=== PATIENT | female | born 1975 | race Two or more races ===

== ENCOUNTER 2020-08-01 15:07 | Outpatient (REF) | payer OTHER, SELFPAY ==
--- NOTE | 2020-08-01 | US_ITS ---
EXAMINATION:US transvaginal, US pelvic complete CLINICAL INFORMATION: Reason for Exam MENORRHAGIA COMPARISON: There is a report from 2016 however no images available. LMP: 07/21/2020 FINDINGS: UTERUS: The uterus is anteverted. Size: 8.8 x 3.3 x 4.8 cm. Uterine mass: Intramural uterine mass right wall 3 x 3 x 2.8 cm probably fibroid. Mass on the left uterine wall 1.9 x 1.2 x 1.4 cm. Cervix: Grossly unremarkable. Endometrium: No ultrasound evidence of endometrial lesion. endometrial thickness measures 0.9 cm echogenic structures in the endometrium might be polyps 4 x 4 by 9 mm and 4 x 3 x 3 mm. ADNEXA: Normal Right ovary: Normal in size. Left ovary: Normal in size. Cystic structure in the left ovary probably follicle 1.5 x 1.4 x 1.3 cm. Doppler exam: Normal Doppler flow identified in both ovaries. FREE FLUID: Trace amount of free fluid. OTHER FINDINGS: None IMPRESSION: 1. There are 2 small echogenic lesions found in the endometrium measuring up to 9 mm and 3 mm, probably polyps. Attention to follow-up recommended. Consider follow-up ultrasound in 6 months. 2. No fibroids identified on today's exam. 3. Cystic structure 1.5 cm left ovary likely ovarian follicle.
== END 2020-08-01 15:08 | disposition home or self-care (01) ==
LOC: HO.US 15:07
DX: R87.619 Unspecified abnormal cytological findings in specimens from cervix uteri (principal); N92.0 Excessive and frequent menstruation with regular cycle
CPT/HCPCS: 76830; 76856

== ENCOUNTER 2020-08-24 09:11 | Outpatient (REF) | payer OTHER, SELFPAY ==
[2020-08-24 10:22] LABS: Hemoglobin 12.6 g/dl (12.0-16.0); Mean Corpuscular HGB Conc 32.3 g/dl (31.0-35.0); Mean Corpuscular Hemoglobin 31.1 pg (27.0-33.0); Mean Corpuscular Volume 96.3 fL (80-98); Platelet Count 277 X10*3/uL (160-400); Red Blood Count 4.05 X10*6/uL (4.20-5.50); White Blood Count 4.5 X10*3/uL (4.8-10.8)
[2020-08-24 11:04] LABS: HCG Quantitative < 2 mIU/mL; Thyroid Stimulating Hormone 1.03 mIU/mL (0.32-4.0)
== END 2020-08-24 09:12 | disposition home or self-care (01) ==
LOC: HO.LAB 09:11
PROVIDERS: PCP Internal Medicine; Visit Provider Obstetrics & Gynecology
DX: N92.0 Excessive and frequent menstruation with regular cycle (principal)
CPT/HCPCS: 36415; 84443; 84702; 85027

== ENCOUNTER → 2020-08-29 08:09 | Outpatient (BNVA) | payer OTHER, SELFPAY | PROVIDERS: PCP Internal Medicine; Visit Provider Obstetrics & Gynecology | DX: Z01.818 Encounter for other preprocedural examination (principal); N84.0 Polyp of corpus uteri; N92.0 Excessive and frequent menstruation with regular cycle | CPT/HCPCS: 99212 ==

== ENCOUNTER 2020-09-07 08:54 | Day surgery (SDC) | payer OTHER, SELFPAY ==
--- NOTE | 2020-09-05 14:49 | P.CONAN_ITS ---
Documented by User: Hamida Cerna 09/05/20 14:50 HPI - Anesthesia Eval Consult details Narrative: 45yo F for D&C Diagnostic Hysteroscopy [facility], [facility] Past Medical History Medical History Back pain Hypovitaminosis D Neck pain Pure hypercholesterolemia Sinusitis Surgical History Surgical History History of bunionectomy Social History Social History Alcohol intake: never Smoking Status: Never smoker Use of substances other than those prescribed or required for medical reasons: No Advance Directives: No Advance Directives Information Provided: No Advance Directives on File: No Sexual orientation: Straight/Heterosexual Gender identity: female Meds Allergies Allergy/AdvReac Type Severity Reaction Status Date / Time No Known Allergies Allergy Verified 09/07/20 09:27 Home Medications Medication Instructions Recorded Confirmed Type fluticasone propionate 50 50 mcg INTRANASAL DIRECTED 08/21/20 08/31/20 History mcg/actuation nasal spray,suspension multivitamin 1 tab PO DAILY 08/21/20 08/31/20 History Fish Oil 1 tab PO DAILY 08/31/20 08/31/20 History ascorbic acid (vitamin C) [Vitamin 500 mg PO DAILY 08/31/20 08/31/20 History C] cholecalciferol (vitamin D3) 25 mcg PO DAILY 08/31/20 08/31/20 History [Vitamin D3] vitamin [id number] acid 1 tab PO DAILY 08/31/20 08/31/20 History Exam Exam Date and Time: September 05, 2020 1449 Height,Weight and Vital Signs: Height 5 ft 4 in Weight 15 kg Pertinent Lab Results Pertinent Lab Results: Laboratory Tests 08/24/20 09:30 WBC 4.5 L Hgb 12.6 Hct 39.0 Plt Count 277 Assessment and Plan Assessment Anesthesia Assessment: Chart Reviewed Documented by User: Madyson Rodas 09/07/20 09:59 PMFSH Past Medical History Medical History Back pain Hypovitaminosis D Neck pain Pure hypercholesterolemia Sinusitis Surgical History Surgical History History of bunionectomy Social History Social History Alcohol intake: never Smoking Status: Never smoker Use of substances other than those prescribed or required for medical reasons: No Advance Directives: No Advance Directives Information Provided: No Advance Directives on File: No Sexual orientation: Straight/Heterosexual Gender identity: female Meds Allergies Allergy/AdvReac Type Severity Reaction Status Date / Time No Known Allergies Allergy Verified 09/07/20 09:27 Home Medications Medication Instructions Recorded Confirmed Type fluticasone propionate 50 50 mcg INTRANASAL DIRECTED 08/21/20 08/31/20 History mcg/actuation nasal spray,suspension multivitamin 1 tab PO DAILY 08/21/20 08/31/20 History Fish Oil 1 tab PO DAILY 08/31/20 08/31/20 History ascorbic acid (vitamin C) [Vitamin 500 mg PO DAILY 08/31/20 08/31/20 History C] cholecalciferol (vitamin D3) 25 mcg PO DAILY 08/31/20 08/31/20 History [Vitamin D3] vitamin W85-ejncq acid 1 tab PO DAILY 08/31/20 08/31/20 History Exam Airway Mallampati Class: I TM Dist: >3cm Neck ROM: Full Heart: RRR Lungs: CTA Assessment and Plan Assessment Anesthesia Assessment: Anesthesia Plan Discussed and Chart Reviewed Final Anesthetic Review NPO: Yes ASA Class: I Final Preanesthetic Review: Meds/Allgs Chart Reviewed, Consent Obtained/Reviewed and Anes Risks/Benef Reviewed Patient Risk: Low Procedure Risk: Low Anesthetic Plan Anesthetic Plan: GA Disposition: Standard PACU
[2020-09-07 09:15] VITALS: BP 112/48; PULSE 53; RESP 20; TEMP 36.3; O2SAT 100; BMI 21.2
[2020-09-07 09:22] LABS: UPreg QC Valid YES; Urine Pregnancy NEGATIVE (NEGATIVE)
[2020-09-07] MEDS: Lactated Ringers 1,000 ML 100 ML IVCONT (09:26)
--- NOTE | 2020-09-07 09:31 | MHC.SHP ---
Pre-Procedural Eval Section A The patient is an INPATIENT: No Changes since office visit: No Cold of Flu in the past 2 weeks, No New Medical Problems, No Changes in Medication and No Patient answered all questions The History & Physical has been completed within 30 days and I have reviewed it.: Yes Section B Chief Complaint: Menorrhagia Allergies: Allergies Allergy/AdvReac Type Severity Reaction Status Date / Time No Known Allergies Allergy Verified 09/07/20 09:27 Plan Diagnosis/Plan: Unchanged Patient has been examined and remains a candidate for the planned procedure
--- NOTE | 2020-09-07 10:46 | PM.OP ---
Brief Operative Note Date of Service: 09/07/20 Pre-op diagnosis: Menometrorrhagia, 2 endometrial polyps Post-op diagnosis: same Procedure: Hysteroscopy D&C, Polypectomy Surgeon: Giovanni Meza MD Anesthesia: MAC Estimated blood loss (mL): 0 Pathology: other (Endometrial Scrapping. Polyp) Condition: stable Disposition: PACU
--- NOTE | 2020-09-07 10:47 | W.PM.OPN ---
Operative Note Operative Note Date of Service: 09/07/20 Narrative: Preop Diagnosis: Menometorrhagia , 2 endometrial polyps Operation: Diagnostic Hysteroscopy, Dilataion & Curettage and polypectomy Post Op Diagnosis: same, 2 endometrial polyps QBL: Minimal Anesthesia: MAC Surgeon: Giovanni Meza MD Custodial Supervisor: None Complication: None Pathology: Endometrial Scrapings, 2 Endometrial Polyps Procedure: The patient was put in the dorsal lithotomy position, scrubbed, and draped in the usual manner. A sterile speculum was inserted in the patient's vagina. The anterior lip of the cervix was grasped with a single tooth tenaculum. The cervix was dilated up to 5 mm, then the scope was inserted in the patient's uterus. Inspection revealed 2 endometrial polyps in the posterior uterine wall. The Myosure Reach device was used; it was introduced through the operative channel and 2 polypectomies were done with no complications. At the end of the procedure, all instruments were taken out of the patient uterine and vaginal cavity. The single tooth tenaculum was removed and homeostasis was assured using pressure,. The patient tolerated the procedure well and was transferred to the PACU in a stable condition.
[2020-09-07 10:52] VITALS: BP 103/57; PULSE 66; RESP 14; TEMP 36.1; O2SAT 96
[2020-09-07 10:57] VITALS: BP 94/55; PULSE 52; RESP 16; O2SAT 96
[2020-09-07 11:03] VITALS: BP 97/55; PULSE 50; RESP 16; O2SAT 93
[2020-09-07 11:16] VITALS: BP 106/62; PULSE 50; RESP 16; O2SAT 99
== END 2020-09-07 11:48 | disposition home or self-care (01) ==
PROVIDERS: Nurse Practitioner; PCP Internal Medicine; Visit Provider Obstetrics & Gynecology
PROC: 0UDB8ZX Extraction of Endometrium, Via Natural or Artificial Opening Endoscopic, Diagnostic (ICD-10-PCS; CPT 58558; principal; 2020-09-07 10:20)
DX: N92.0 Excessive and frequent menstruation with regular cycle (principal); N84.0 Polyp of corpus uteri; E55.9 Vitamin D deficiency, unspecified; E78.00 Pure hypercholesterolemia, unspecified; Z79.899 Other long term (current) drug therapy
CPT/HCPCS: 58558; 81025; 88305; J1100; J1885; J2250; J2405; J3010

== ENCOUNTER → 2020-09-25 14:14 | Outpatient (BNVA) | payer OTHER, SELFPAY | PROVIDERS: Visit Provider Obstetrics & Gynecology | DX: Z76.89 Persons encountering health services in other specified circumstances (principal) ==

== ENCOUNTER 2020-10-17 15:26 | Outpatient (REF) | payer OTHER, SELFPAY | END 2020-10-17 15:27 | disposition home or self-care (01) | LOC: HO.LAB 15:26 | PROVIDERS: PCP Internal Medicine; Visit Provider Internal Medicine | DX: Z20.828 Contact with and (suspected) exposure to other viral communicable diseases (principal) | CPT/HCPCS: C9803; U0003 ==

== ENCOUNTER 2021-01-09 08:34 | Outpatient (REF) | payer OTHER, SELFPAY ==
[2021-01-09 09:06] LABS: MANUAL DIFF FLAG NO
[2021-01-09 09:09] LABS: Basophils Percent Auto 0.7 % (0-2); Eosinophils Absolute Auto 0.1 X10*3/uL (0.0-0.4); Eosinophils Percent Auto 1.4 % (0-4); Hematocrit 38.6 % (37-47); Hemoglobin 12.5 g/dl (12.0-16.0); Imm Gran Abs Auto 0.01 X10*3/uL (0.00-0.03); Imm Gran Pct Auto 0.2 % (0.0-0.4); Lymphocytes Absolute Auto 1.5 X10*3/uL (1.2-4.9); Lymphocytes Percent Auto 35.6 % (20-40); Mean Corpuscular HGB Conc 32.4 g/dl (31.0-35.0); Mean Corpuscular Hemoglobin 31.1 pg (27.0-33.0); Monocytes Absolute Auto 0.4 X10*3/uL (0.1-1.2); Monocytes Percent Auto 8.4 % (2-11); Neutrophils Absolute Auto 2.2 X10*3/uL (2.0-8.3); Neutrophils Percent Auto 53.7 % (45-73); Platelet Count 250 X10*3/uL (160-400); Red Blood Count 4.02 X10*6/uL (4.20-5.50); Red Cell Distribution Width 12.5 % (11.0-16.0); White Blood Count 4.2 X10*3/uL (4.8-10.8)
[2021-01-09 09:32] LABS: Blood Urea Nitrogen 14 mg/dL (9-16); Calcium 9.2 mg/dL (8.4-10.2); Estimated Glomerular Filt Rate > 60; Glucose Random 108 mg/dL (60-115)
[2021-01-09 09:42] LABS: Anion Gap 11 (12-20); Carbon Dioxide 29 mmol/L (22-29); Chloride 103 mmol/L (96-108); Potassium 4.8 mmol/L (3.3-5.1); Sodium 138 mmol/L (135-145)
== END 2021-01-09 08:35 | disposition home or self-care (01) ==
LOC: HO.LAB 08:34
PROVIDERS: PCP Internal Medicine; Visit Provider Internal Medicine
DX: Z00.00 Encounter for general adult medical examination without abnormal findings (principal); R51.9 Headache, unspecified
CPT/HCPCS: 36415; 80048; 85025

== ENCOUNTER 2021-01-16 08:26 | Outpatient (REF) | payer OTHER, SELFPAY ==
--- NOTE | ~2021-01-16 | US_ITS ---
EXAMINATION: US ABDOMEN COMPLETE CLINICAL INFORMATION: Unspecified abdominal pain. COMPARISON: Renal ultrasound 04/20/2019. KUB 02/18/2019. TECHNIQUE: Real-time imaging of the abdominal viscera. FINDINGS: PANCREAS: Normal. ABDOMINAL AORTA: The proximal, mid, and distal segments are normal in caliber. INFERIOR VENA CAVA: Visualized portions are normal. LIVER: Normal. The liver is normal in size. The liver contour is normal. Parenchymal echogenicity is normal. No focal hepatic lesion. There is no intrahepatic biliary duct dilatation seen. GALLBLADDER: Gallbladder wall thickness of 0.2 cm. The gallbladder is physiologically distended without evidence of stones, sludge, polyps, wall thickening or pericholecystic fluid. COMMON BILE DUCT: Normal in caliber measuring 0.3 cm in diameter. RIGHT KIDNEY: Normal. No hydronephrosis. No renal calculi or focal parenchymal lesions. The kidney measures 11.3 cm in maximum dimension. LEFT KIDNEY: Normal. No hydronephrosis. No renal calculi or focal parenchymal lesions. The kidney measures 11.3 cm in maximum dimension. SPLEEN: Normal. The spleen measures 8.6 cm in maximum dimension. FREE FLUID: None. US/US abdomen complete IMPRESSION: Unremarkable complete abdomen ultrasound
== END 2021-01-16 08:27 | disposition home or self-care (01) ==
LOC: HO.US 08:26
PROVIDERS: Visit Provider Internal Medicine
DX: R10.9 Unspecified abdominal pain (principal)
CPT/HCPCS: 76700

== ENCOUNTER 2021-03-29 08:38 | Outpatient (REF) | payer OTHER, SELFPAY ==
--- NOTE | ~2021-03-29 | MM_ITS ---
EXAMINATION: MM SCREENING DIGITAL BREAST TOMOSYNTHESIS, BILATERAL CLINICAL INFORMATION: Screening. Asymptomatic. The lifetime risk of breast cancer based on the Tyrer-Cuzick Model is 8%. COMPARISON: Mammography: 01/03/2020, 11/23/2018, 11/10/2017, 08/03/2017; targeted right breast ultrasound 11/08/2019 TECHNIQUE: Digital breast tomosynthesis is performed in both the craniocaudal and mediolateral oblique views along with computer-aided detection (CAD). Synthesized 2D images are generated from the tomosynthesis. FINDINGS: There are scattered areas of fibroglandular density (ACR BI-RADS breast composition Category b). Breast tissue composition borders on extremely dense. There is a stable oval mass posterior upper right breast similar to prior exams. There is no significant mass or architectural abnormality or abnormal calcifications. The skin contours are smooth. No significant changes. MM/MM tomosynthesis screening BI IMPRESSION: No significant changes from prior studies. ASSESSMENT: BI-RADS 2: Benign RECOMMENDATION: Routine annual mammography screening. This patient's information was entered into a reminder system with a target due date for their next mammogram.
== END 2021-03-29 08:39 | disposition home or self-care (01) ==
LOC: HO.MAMMO 08:38
PROVIDERS: PCP Internal Medicine; Visit Provider Internal Medicine
DX: Z12.31 Encounter for screening mammogram for malignant neoplasm of breast (principal)
CPT/HCPCS: 77063; 77067

== ENCOUNTER 2021-09-09 16:29 | Outpatient (REF) | payer OTHER, SELFPAY ==
--- NOTE | ~2021-09-09 | XR_ITS ---
EXAMINATION: X-RAY RIGHT KNEE X-RAY LEFT KNEE CLINICAL INFORMATION: Pain. Trauma about 10 years ago. COMPARISON: MR of the left knee dated from 11/03/2006. TECHNIQUE: 4 views of each knee were obtained. FINDINGS: Right knee: No acute fractures or malalignment. Mild joint space narrowing of the medial compartment with subcortical sclerosis. No chondrocalcinosis or joint effusion. No unexpected radiopaque foreign bodies. Left knee: No acute fractures or malalignment. Similar to the right side, there are mild degenerative changes in the medial compartment. No erosions or chondrocalcinosis. No joint effusion. No unexpected radiopaque foreign bodies. XR/XR knee RT 4V IMPRESSION: No acute fractures or malalignment. Mild degenerative osteoarthritis of the medial compartment.
--- NOTE | ~2021-09-09 | XR_ITS ---
EXAMINATION: X-RAY RIGHT KNEE X-RAY LEFT KNEE CLINICAL INFORMATION: Pain. Trauma about 10 years ago. COMPARISON: MR of the left knee dated from 11/03/2006. TECHNIQUE: 4 views of each knee were obtained. FINDINGS: Right knee: No acute fractures or malalignment. Mild joint space narrowing of the medial compartment with subcortical sclerosis. No chondrocalcinosis or joint effusion. No unexpected radiopaque foreign bodies. Left knee: No acute fractures or malalignment. Similar to the right side, there are mild degenerative changes in the medial compartment. No erosions or chondrocalcinosis. No joint effusion. No unexpected radiopaque foreign bodies. XR/XR knee LT 4V IMPRESSION: No acute fractures or malalignment. Mild degenerative osteoarthritis of the medial compartment.
== END 2021-09-09 16:30 | disposition home or self-care (01) ==
LOC: HO.XRAY 16:29
PROVIDERS: PCP Internal Medicine; Visit Provider Nurse Practitioner Family
DX: M25.562 Pain in left knee (principal); M25.561 Pain in right knee; W19.XXXD Unspecified fall, subsequent encounter
CPT/HCPCS: 73564

== ENCOUNTER 2021-09-30 10:00 | Outpatient (RCR) | payer OTHER, SELFPAY ==
--- NOTE | 2021-10-30 09:29 | MHC.PT.DC ---
[facility] [place] Office [place] Office [place] Office [address] Dominga Pritchett [address] [phone] F: [phone] F: [phone] F: [phone] F: [phone] Physical Therapy Discharge Report Diagnosis: knee pain Date of Evaluation: 09/25/21 Date of Discharge: 10/04/21 Treatments to Date: 2 Cancellations to Date: No Shows to Date: Discharge Status: Pt elected to stop therapy. Discharge Summary: Pt did not return to f/u visits. She stopped after one visit. Electronically signed by: Farhana Laughlin PT DPT Please sign and return to therapist. Thank you for your referral.
== END 2021-10-30 09:36 | disposition home or self-care (01) ==
LOC: HO.PT 10:00
PROVIDERS: PCP Internal Medicine; Visit Provider Nurse Practitioner Family
DX: M25.561 Pain in right knee (principal); M25.562 Pain in left knee
CPT/HCPCS: 97033; 97110; 97140; 97162

== ENCOUNTER 2021-12-20 09:55 | Outpatient (REF) | payer OTHER, SELFPAY ==
--- NOTE | ~2021-12-20 | CT_ITS ---
EXAMINATION: CT ABDOMEN AND PELVIS WITHOUT CONTRAST CLINICAL INFORMATION: Left lower quadrant pain COMPARISON: Previous abdominal ultrasound December 2020 TECHNIQUE: Multidetector volumetric imaging was performed from the superior aspect of the liver through the pubic symphysis. Sagittal and coronal reformatted images were obtained on the technologist's workstation. This CT examination was performed using dose optimization techniques as appropriate, variously including the following: *Automated exposure control *Adjustment of mA and/or kV according to patient size (this includes techniques or standardized protocols for targeted exams where dose is matched to indication/reason for exam; i.e. extremities or head) *Use of iterative reconstruction technique DLP: 335 mGy-cm FINDINGS: LUNG BASES: There is a small left posterior diaphragmatic hernia containing fat. The lung bases are otherwise clear. LIVER, GALLBLADDER, AND BILIARY TREE: The liver is normal in size, shape, and attenuation. No focal hepatic lesion or biliary ductal dilatation is present. The gallbladder is unremarkable with no evidence of radiopaque gallstones, gallbladder wall thickening, or obvious pericholecystic inflammatory changes. PANCREAS: Unremarkable. SPLEEN: Unremarkable. ADRENAL GLANDS: Unremarkable. KIDNEYS AND URETERS: The kidneys are normal in size, shape, and attenuation. No hydronephrosis, hydroureter, or calculi seen. No perinephric stranding. BLADDER: Not optimally distended. GASTROINTESTINAL TRACT: There is stool seen throughout the colon questionable for constipation. The small and large bowel are otherwise unremarkable. The appendix is unremarkable. ABDOMINAL WALL: No significant hernia is appreciated. LYMPH NODES: Normal. VASCULAR: Unremarkable. PELVIC VISCERA: The uterus is retroverted. No pelvic mass is seen.. OSSEOUS STRUCTURES: Unremarkable. CT/CT abdomen pelvis wo con IMPRESSION: Stool throughout the colon questionable for constipation otherwise unremarkable exam. Fleischner guidelines were followed.
[2021-12-20 10:11] LABS: MANUAL DIFF FLAG NO
[2021-12-20 10:36] LABS: Basophils Percent Auto 0.7 % (0-2); Eosinophils Absolute Auto 0.1 X10*3/uL (0.0-0.4); Eosinophils Percent Auto 1.4 % (0-4); Hematocrit 37.7 % (37.0-47.0); Hemoglobin 12.4 g/dl (12.0-16.0); Imm Gran Abs Auto 0.01 X10*3/uL (0.00-0.03); Imm Gran Pct Auto 0.2 % (0.0-0.4); Lymphocytes Absolute Auto 1.6 X10*3/uL (1.2-4.9); Lymphocytes Percent Auto 36.2 % (20-40); Mean Corpuscular HGB Conc 32.9 g/dl (31.0-35.0); Mean Corpuscular Hemoglobin 31.5 pg (27.0-33.0); Mean Corpuscular Volume 95.7 fL (80.0-98.0); Mean Platelet Volume 9.7 fL (9.4-12.3); Monocytes Absolute Auto 0.3 X10*3/uL (0.1-1.2); Monocytes Percent Auto 7.8 % (2-11); Neutrophils Absolute Auto 2.3 x10*3/uL (2.0-8.3); Neutrophils Percent Auto 53.7 % (45-73); Platelet Count 278 X10*3/uL (160-400); Red Blood Count 3.94 X10*6/uL (4.20-5.50); Red Cell Distribution Width 12.2 % (11.0-16.0); White Blood Count 4.4 X10*3/uL (4.8-10.8)
[2021-12-20 11:22] LABS: Appearance Urine HAZY; Color Urine YELLOW; Glucose Urine UA NEG (NEG); Leukocyte Esterase Urine NEG (NEG); Nitrite Urine NEG (NEG); Specific Gravity - Urine 1.025 (1.005-1.025); UACC Culture Trigger NO; Urine Blood 3+ (NEG); Urine Ketones NEG (NEG); Urine Protein NEG (NEG-TRACE)
[2021-12-20 11:28] LABS: RBC Urine 30-49 /HPF (0); Squamous Epithelial Cell Urine 1+ /LPF; WBC Urine 0 /HPF (0-4)
[2021-12-20 11:35] LABS: Alanine Aminotransferase 16 U/L (0-31); Albumin Level 4.2 g/dL (3.5-5.0); Alkaline Phosphatase 35 U/L (39-117); Anion Gap 10 (12-20); Aspartate Amino Transferase 18 U/L (5-31); Blood Urea Nitrogen 15 mg/dL (9-16); Calcium 9.2 mg/dL (8.4-10.2); Carbon Dioxide 28 mmol/L (22-29); Chloride 103 mmol/L (96-108); Estimated Glomerular Filt Rate > 60; Glucose Random 106 mg/dL (60-115); Potassium 4.3 mmol/L (3.3-5.1); Sodium 137 mmol/L (135-145); Total Protein 6.8 g/dL (6.5-8.0)
== END 2021-12-20 09:56 | disposition home or self-care (01) ==
LOC: HO.CT 09:55
PROVIDERS: PCP Internal Medicine; Visit Provider Nurse Practitioner Family
DX: R10.32 Left lower quadrant pain (principal)
CPT/HCPCS: 36415; 74176; 80053; 81001; 85025

== ENCOUNTER → 2022-03-05 07:59 | Outpatient (BNVA) | payer OTHER, SELFPAY | PROVIDERS: PCP Internal Medicine; Visit Provider Advanced Practice Midwife | DX: Z01.419 Encounter for gynecological examination (general) (routine) without abnormal findings (principal) ==

== ENCOUNTER 2022-03-31 13:40 | Outpatient (REF) | payer OTHER, SELFPAY ==
--- NOTE | ~2022-03-31 | MM_ITS ---
EXAMINATION: MM SCREENING DIGITAL BREAST TOMOSYNTHESIS, BILATERAL CLINICAL INFORMATION: Screening. Asymptomatic. The lifetime risk of breast cancer based on the Tyrer-Cuzick Model is 8.0%. COMPARISON: Mammography: March 29, 2021 and studies dating back to November 09, 2013 TECHNIQUE: Digital breast tomosynthesis is performed in both the craniocaudal and mediolateral oblique views along with computer-aided detection (CAD). Synthesized 2D images are generated from the tomosynthesis. FINDINGS: The breasts are extremely dense, which lowers the sensitivity of mammography (ACR BI-RADS breast composition Category d). There are no significant masses, abnormal calcifications, or other abnormalities. MM/MM tomosynthesis screening BI IMPRESSION: There are no significant changes from prior study. ASSESSMENT: BI-RADS 1: Negative RECOMMENDATION: Routine annual mammography screening. This patient's information was entered into a reminder system with a target due date for their next mammogram.
== END 2022-03-31 13:41 | disposition home or self-care (01) ==
LOC: HO.MAMMO 13:40
PROVIDERS: PCP Student in an Organized Health Care Education/Training Program; Visit Provider Internal Medicine
DX: Z12.31 Encounter for screening mammogram for malignant neoplasm of breast (principal)
CPT/HCPCS: 77063; 77067

== ENCOUNTER 2022-04-22 07:55 | Day surgery (SDC) | payer OTHER, SELFPAY ==
[2022-04-15 19:04] VITALS: BMI 23.0
--- NOTE | 2022-04-21 10:03 | HO.ANESPROP2 ---
HPI - Anesthesia Eval Consult details Narrative: 47yo F for Colonoscopy PMFSH Active Problems Active Problems: All Active Problems (Updated 04/21/22 @ 09:44 by Po Barreto RN) Pure hypercholesterolemia (Acute) Menorrhagia (Acute) Endometrium, polyp (Acute) Abdominal pain (Acute) Bilateral knee pain (Acute) Fall (Acute) Physical exam (Acute) Menstrual period late (Acute) Colon cancer screening (Acute) Chronic constipation (Acute) Bunion, right foot (Acute) Acid reflux (Acute) LLQ pain (Acute) Bloating (Acute) Hypovitaminosis D (Acute) Past Medical History Medical History (Updated 04/21/22 @ 09:44 by Po Barreto RN) Back pain Diabetes Elevated cholesterol Hypovitaminosis D Neck pain Sinusitis Family History Family History Mother Diabetes Father Diabetes Other Mental health disorder Surgical History Surgical History (Updated 04/16/22 @ 08:31 by Wanda Jean RN) History of bunionectomy Status post hysteroscopic polypectomy Social History Social History (Updated 04/07/22 @ 17:02 by Olive Gaxiola MD) Housing: House Alcohol intake: current Alcohol intake frequency: a few times a month Alcohol type: wine and hard liquor Patient Tobacco Use Status: Former Tobacco user Quit Date: 30 years ago e-Cigarette/Vaping Use: Never Used Second Hand Smoke Exposure: No service: No Current occupational status: unemployed Sexual orientation: Straight/Heterosexual Gender identity: Female Cognitive needs: No Hearing needs: No Vision needs: Yes (glasses) Meds Allergies Allergy/AdvReac Type Severity Reaction Status Date / Time No Known Allergies Allergy Verified 04/07/22 17:00 Home Medications Medication Instructions Recorded Confirmed Last Taken Type Fish Oil 1 tab PO DAILY 08/31/20 04/15/22 08/31/20 History ascorbic acid (vitamin C) 500 mg 500 mg PO DAILY 08/31/20 04/15/22 Unknown History tablet (Vitamin C) cholecalciferol (vitamin D3) 25 25 mcg PO DAILY 08/31/20 04/15/22 Unknown History mcg (1,000 unit) tablet (Vitamin D3) vitamin B12 0.5 mg-folic acid 1 mg 1 tab PO DAILY 08/31/20 04/15/22 Unknown History tablet ginkgo biloba 40 mg tablet 120 mg PO DAILY 01/04/21 04/15/22 Unknown History vitamin A 2,400 mcg capsule 2,400 mcg PO DAILY 01/04/21 04/15/22 Unknown History vitamin E 200 unit capsule 200 unit PO DAILY 01/04/21 04/15/22 Unknown History Exam Exam Date and Time: April 21, 2022 1003 Height,Weight and Vital Signs: Height 5 ft 4 in Weight 60.781 kg Pertinent Lab Results Pertinent Lab Results: Laboratory Tests 12/20/21 12/20/21 10:10 10:10 WBC 4.4 L Hgb 12.4 Hct 37.7 Plt Count 278 Sodium 137 Potassium 4.3 Chloride 103 Carbon Dioxide 28 BUN 15 Creatinine 0.84 Assessment and Plan Assessment Anesthesia Assessment: Chart Reviewed
[2022-04-22 08:01] VITALS: BP 105/65; PULSE 89; RESP 18; TEMP 36.3; O2SAT 97
--- NOTE | 2022-04-22 08:15 | PC.NURSE ---
no meds taken today
[2022-04-22 08:20] LABS: UPreg QC Valid YES; Urine Pregnancy NEGATIVE (NEGATIVE)
[2022-04-22] MEDS: Lactated Ringers 1,000 ML 100 ML IVCONT (08:23)
--- NOTE | 2022-04-22 09:25 | P.CONAN_ITS ---
[facility] Active Problems Active Problems: All Active Problems (Updated 04/22/22 @ 08:11 by Po Barreto RN) Pure hypercholesterolemia (Acute) Menorrhagia (Acute) Endometrium, polyp (Acute) Abdominal pain (Acute) Bilateral knee pain (Acute) Fall (Acute) Physical exam (Acute) Menstrual period late (Acute) Colon cancer screening (Acute) Chronic constipation (Acute) Bunion, right foot (Acute) Acid reflux (Acute) LLQ pain (Acute) Bloating (Acute) Hypovitaminosis D (Acute) Past Medical History Medical History Back pain Elevated cholesterol Hypovitaminosis D Neck pain Sinusitis Patient : No Family History Family History Mother Diabetes Father Diabetes Other Mental health disorder Family history of problems with anesthesia: No Surgical History Surgical History (Updated 04/16/22 @ 08:31 by Wanda Jean RN) History of bunionectomy Status post hysteroscopic polypectomy History of Problems with Anesthesia: No Social History Social History (Updated 04/07/22 @ 17:02 by Olive Gaxiola MD) Housing: House Alcohol intake: current Alcohol intake frequency: a few times a month Alcohol type: wine and hard liquor Patient Tobacco Use Status: Former Tobacco user Quit Date: 30 years ago e-Cigarette/Vaping Use: Never Used Second Hand Smoke Exposure: No Use of substances other than those prescribed or required for medical reasons: No Advance Directives: No Advance Directives Information Provided: No Advance Directives on File: No Recently lost weight without trying: No Nutrition Risks: No Nutritional Risk service: No Current occupational status: unemployed Sexual orientation: Straight/Heterosexual Gender identity: Female Cognitive needs: No Hearing needs: No Vision needs: Yes (glasses) Meds Allergies Allergy/AdvReac Type Severity Reaction Status Date / Time No Known Allergies Allergy Verified 04/07/22 17:00 Active Medications: Current Medications Lactated Ringer's (Lr) 1,000 mls @ 100 mls/hr IVCONT .Q10H RILEY Last Admin: 04/22/22 08:23 Dose: 100 mls/hr Ondansetron HCl (Ondansetron Hcl 4 Mg/2 Ml Vial) 4 mg IVPUSH ONCE PRN PRN Reason: Nausea and Vomiting Home Medications Medication Instructions Recorded Confirmed Last Taken Type Fish Oil 1 tab PO DAILY 08/31/20 04/15/22 03/11/22 History ascorbic acid (vitamin C) 500 mg 500 mg PO DAILY 08/31/20 04/15/22 Unknown History tablet (Vitamin C) cholecalciferol (vitamin D3) 25 25 mcg PO DAILY 08/31/20 04/15/22 Unknown History mcg (1,000 unit) tablet (Vitamin D3) vitamin B12 0.5 mg-folic acid 1 mg 1 tab PO DAILY 08/31/20 04/15/22 Unknown History tablet ginkgo biloba 40 mg tablet 120 mg PO DAILY 01/04/21 04/15/22 Unknown History vitamin A 2,400 mcg capsule 2,400 mcg PO DAILY 01/04/21 04/15/22 Unknown History vitamin E 200 unit capsule 200 unit PO DAILY 01/04/21 04/15/22 Unknown History Exam Exam Date and Time: April 22, 2022 0925 Height,Weight and Vital Signs: Height 5 ft 4 in Weight 60.781 kg Last Vital Signs Temp 97.4 F 04/22/22 08:01 Pulse 89 04/22/22 08:01 Resp 18 04/22/22 08:01 BP 105/65 04/22/22 08:01 Pulse Ox 97 04/22/22 08:01 O2 Del Method 04/22/22 08:01 Pertinent Lab Results Pertinent Lab Results: Laboratory Tests 04/22/22 08:00 Urine Test NEGATIVE Airway Mallampati Class: I TM Dist: >3cm Neck ROM: Full Loose/Missing/Broken Teeth: No Heart: rrr Lungs: clear Assessment and Plan Final Anesthetic Review Family History of Problems with Anesthesia: No History of Problems with Anesthesia: No ASA Class: II Final Preanesthetic Review: No Changes in Pt Med Stat, Meds/Allgs Chart Reviewed, Consent Obtained/Reviewed and Anes Risks/Benef Reviewed Patient Risk: Low Procedure Risk: Low Anesthetic Plan Anesthetic Plan: MAC: Disposition: Standard PACU
--- NOTE | 2022-04-22 09:27 | MHC.SHP ---
Pre-Procedural Eval Section A Date of Service: 04/22/22 Section B Chief Complaint: screening Details of Present Illness: see H&P no changes Relevant Family History (Specify if Yes): No Relevant Social History: None Present Medications: see Short Stay Collaborative assessment Medical History: No relevant PMH History of Previous Operations: No relevant previous surgery Allergies: Allergies Allergy/AdvReac Type Severity Reaction Status Date / Time No Known Allergies Allergy Verified 04/07/22 17:00 Review of Systems Sugical H&P ROS: Negative: Constitution, Cardiovascular, Respiratory, Neurological, Psychiatric, Hem-Onc, Allergic/Immunologic, Gastrointestinal, Genitourinary, Musculoskeletal, Integumentary, Endocrine and Eyes/Ears/Nose/Throat Exam Surgical H&P Exam: Normal: HEENT, Normal: Heart, Normal: Lungs, Normal: Extremities, Normal: Abdomen, Normal: Skin and Normal: Neurological Plan Diagnosis/Plan: Unchanged I have reviewed the history and physical and performed a pertinent physical examination on my patient. No changes have occurred unless specified.
--- NOTE | 2022-04-22 10:01 | P.BOP_ITS ---
Brief Operative Note Date of Service: 04/22/22 Pre-op diagnosis: screening Post-op diagnosis: same Procedure: colonoscopy Surgeon: Hever Barrera Anesthesia: MAC Was an Stock Parts Inspector used for this Procedure?: No Estimated blood loss (mL): 0 Pathology: none sent Condition: stable Disposition: PACU
[2022-04-22 10:04] VITALS: BP 99/58; PULSE 61; RESP 20; TEMP 36.1; O2SAT 97
[2022-04-22 10:19] VITALS: BP 105/58; PULSE 60; RESP 18; TEMP 36.1; O2SAT 99
--- NOTE | 2022-04-22 22:26 | OP_ITS ---
SURGEON: Hever Barrera MD INDICATIONS: Colon cancer screening. PREOPERATIVE DIAGNOSIS: POSTOPERATIVE DIAGNOSIS: PROCEDURE PERFORMED: Colonoscopy to the terminal ileum. ESTIMATED BLOOD LOSS: COMPLICATIONS: ANESTHESIA: Monitored anesthesia care. ASSISTANTS: SPECIMENS: DESCRIPTION OF PROCEDURE: History and physical performed. The risks and benefits of the procedure were explained to the patient. Informed consent was obtained. The patient was placed in the left lateral decubitus position. A digital rectal exam was performed and was found to be normal. The Olympus pediatric video colonoscope was introduced into the rectum and advanced to the cecum without difficulty. The cecum was identified by transillumination, palpation, and identification of the ileocecal valve. Examination was performed. The scope was removed. She tolerated the procedure well and was taken to recovery area in stable condition. FINDINGS: The terminal ileum was briefly examined and appeared normal. The visualized colonic mucosa was normal without any evidence of masses, ulcers, or polyps. There was mild sigmoid diverticulosis with a few scattered diverticula throughout the remainder of the colon. Retroflexed examination showed some small internal hemorrhoids. The quality of the prep was good. IMPRESSION: Normal screening colonoscopy, diverticulosis. RECOMMENDATION: 1. Followup as needed. 2. Repeat colonoscopy is recommended in 10 years for average risk individuals. MD LAURA Batres/CASIMIRO / [id number]
== END 2022-04-22 10:36 | disposition home or self-care (01) ==
PROVIDERS: Nurse Practitioner; PCP Internal Medicine; Visit Provider Internal Medicine Gastroenterology
PROC: 0DJD8ZZ Inspection of Lower Intestinal Tract, Via Natural or Artificial Opening Endoscopic (ICD-10-PCS; CPT 45378; principal; 2022-04-22 09:10)
DX: Z12.11 Encounter for screening for malignant neoplasm of colon (principal); K57.30 Diverticulosis of large intestine without perforation or abscess without bleeding; K64.8 Other hemorrhoids; K58.2 Mixed irritable bowel syndrome; K21.9 Gastro-esophageal reflux disease without esophagitis; E11.9 Type 2 diabetes mellitus without complications; Z79.899 Other long term (current) drug therapy
CPT/HCPCS: 45378; 81025

== ENCOUNTER → 2023-03-09 08:53 | Outpatient (BNVA) | payer OTHER, SELFPAY | PROVIDERS: PCP Internal Medicine; Visit Provider Advanced Practice Midwife ==

== ENCOUNTER 2023-04-08 08:46 | Outpatient (REF) | payer OTHER, SELFPAY ==
--- NOTE | ~2023-04-08 | MM_ITS ---
EXAMINATION: MM SCREENING DIGITAL BREAST TOMOSYNTHESIS, BILATERAL CLINICAL INFORMATION: Screening. Asymptomatic. The lifetime risk of breast cancer based on the Tyrer-Cuzick Model is 6%. COMPARISON: Mammography: 03/31/2022, 03/29/2021, 01/03/2020, 11/23/2018; right breast ultrasound 11/08/2019 TECHNIQUE: Digital breast tomosynthesis is performed in both the craniocaudal and mediolateral oblique views along with computer-aided detection (CAD). Synthesized 2D images are generated from the tomosynthesis. FINDINGS: The breasts are heterogeneously dense, which may obscure small masses (ACR BI-RADS breast composition Category c). Breast tissue composition borders on extremely dense. Parenchymal pattern is similar to prior studies and there is no developing density or significant mass or architectural abnormality. Again, there is a chronic oval mass posterior upper right breast on MLO view similar to prior studies. No abnormal calcifications on left. The right breast has subtle grouped punctate foci 6 cm from nipple mid inner quadrant on CC view, suspect digital processing pseudocalcification artifact. Patient will be recalled for additional imaging to confirm. MM/MM tomosynthesis screening BI IMPRESSION: Right: -Punctate calcifications versus digital processing pseudocalcification artifact mid medial breast on CC view. Left: -No mammographic evidence of malignancy. ASSESSMENT: BI-RADS 0: Incomplete - Need Additional Imaging Evaluation RECOMMENDATION: 1. Additional views right breast (magnification CC, magnification LM upper and lower). 2. Radiology department staff will contact the patient for additional imaging. This patient's information was entered into a reminder system with a target due date for their next mammogram.
== END 2023-04-08 08:47 | disposition home or self-care (01) ==
LOC: HO.MAMMO 08:46
PROVIDERS: PCP Internal Medicine; Visit Provider Internal Medicine
DX: Z12.31 Encounter for screening mammogram for malignant neoplasm of breast (principal)
CPT/HCPCS: 77063; 77067

== ENCOUNTER 2023-04-22 09:10 | Outpatient (REF) | payer OTHER, SELFPAY ==
--- NOTE | ~2023-04-22 | XR_ITS ---
EXAMINATION: XR SHOULDER, LEFT CLINICAL INFORMATION: Pain. COMPARISON: None available. TECHNIQUE: AP external rotation, Grashey, scapular Y, and axillary views of the left shoulder. FINDINGS: There is no evidence of acute fracture or dislocation of the left shoulder. Glenohumeral joint maintained. No calcific tendinitis. No significant abnormality of the acromioclavicular joint identified. XR/XR shoulder LT min 2V IMPRESSION: No significant abnormality of the left shoulder identified.
--- NOTE | ~2023-04-22 | XR_ITS ---
EXAMINATION: XR CHEST CLINICAL INFORMATION: Chest pain. COMPARISON: None available. TECHNIQUE: 2 views of the chest were obtained. FINDINGS: There is no evidence of acute parenchymal disease, pneumothorax, or pleural effusion. Heart normal size. No evidence of pulmonary edema. There is mild scoliosis lumbar spine convex left. XR/XR chest 2V IMPRESSION: No acute disease.
--- NOTE | 2023-04-22 09:15 | ECG_ITS ---
Test Reason : chest pain Blood Pressure : / mmHG Vent. Rate : 045 BPM Atrial Rate : 045 BPM P-R Int : 146 ms QRS Dur : 074 ms QT Int : 428 ms P-R-T Axes : 059 020 043 degrees QTc Int : 370 ms Sinus bradycardia Otherwise normal ECG No previous ECGs available Referred By: Olive Gaxiola Electronically Signed By:Kyaw Heath
[2023-04-22 09:20] LABS: MANUAL DIFF FLAG NO
[2023-04-22 09:48] LABS: Basophils Percent Auto 0.6 % (0-2); Eosinophils Absolute Auto 0.1 X10*3/uL (0.0-0.4); Eosinophils Percent Auto 1.4 % (0-4); Hematocrit 35.7 % (37.0-47.0); Hemoglobin 11.7 g/dl (12.0-16.0); Imm Gran Abs Auto 0.01 X10*3/uL (0.00-0.03); Imm Gran Pct Auto 0.2 % (0.0-0.4); Lymphocytes Absolute Auto 1.6 X10*3/uL (1.2-4.9); Lymphocytes Percent Auto 32.8 % (20-40); Mean Corpuscular HGB Conc 32.8 g/dl (31.0-35.0); Mean Corpuscular Hemoglobin 31.1 pg (27.0-33.0); Mean Corpuscular Volume 94.9 fL (80.0-98.0); Mean Platelet Volume 10.1 fL (9.4-12.3); Monocytes Absolute Auto 0.4 X10*3/uL (0.1-1.2); Monocytes Percent Auto 8.7 % (2-11); Neutrophils Absolute Auto 2.8 x10*3/uL (2.0-8.3); Neutrophils Percent Auto 56.3 % (45-73); Platelet Count 225 X10*3/uL (160-400); Red Blood Count 3.76 X10*6/uL (4.20-5.50); Red Cell Distribution Width 12.9 % (11.0-16.0); White Blood Count 4.9 X10*3/uL (4.8-10.8)
[2023-04-22 10:17] LABS: Alanine Aminotransferase 15 U/L (0-31); Albumin Level 3.9 g/dL (3.5-5.0); Alkaline Phosphatase 41 U/L (39-117); Anion Gap 6 (12-20); Aspartate Amino Transferase 17 U/L (5-31); Bilirubin Total 1.1 mg/dL (0.0-1.0); Blood Urea Nitrogen 13 mg/dL (9-16); Calcium 9.2 mg/dL (8.4-10.2); Carbon Dioxide 29 mmol/L (22-29); Chloride 105 mmol/L (96-108); Cholesterol 228 mg/dL; Estimated Glomerular Filt Rate > 60; Glucose Fasting 109 mg/dL (60-99); HDL Cholesterol 54 mg/dL; LDL Cholesterol Calculated 146 mg/dl; Sodium 136 mmol/L (135-145); Total Protein 6.8 g/dL (6.5-8.0); Triglycerides 144 mg/dL
== END 2023-04-22 09:11 | disposition home or self-care (01) ==
LOC: HO.LAB 09:10
PROVIDERS: PCP Internal Medicine; Visit Provider Internal Medicine
DX: R07.9 Chest pain, unspecified (principal)
CPT/HCPCS: 36415; 71046; 73030; 80053; 80061; 85025; 93005

== ENCOUNTER 2023-05-22 09:25 | Outpatient (REF) | payer OTHER, SELFPAY ==
--- NOTE | ~2023-05-22 | MM_ITS ---
EXAMINATION: MM DIAGNOSTIC DIGITAL MAMMOGRAPHY, RIGHT CLINICAL INFORMATION: Patient recalled from screening mammography dated 04/08/2023 2 further evaluate possible calcifications in the upper inner quadrant of the right breast. The lifetime risk of breast cancer based on the Tyrer-Cuzick Model is 6.0%. COMPARISON: Mammography: This study is compared to prior mammograms dating back to 2019. TECHNIQUE: Digital mammography is performed in craniocaudal and mediolateral oblique views along with computer-aided detection (CAD). CC and lateral magnification imaging of the right breast. FINDINGS: The breasts are extremely dense, which lowers the sensitivity of mammography (ACR BI-RADS breast composition Category d). There is one punctate calcification in the upper inner quadrant of the breast. The remaining calcifications perceived at the time of the screening mammogram from March 2023 were artifactual. There are no mammographic signs of malignancy in the right breast. MM/MM diagnostic mammo unilat RT IMPRESSION: No mammographic signs of malignancy right breast. Results are provided to the patient at time of visit by the technologist. ASSESSMENT: BI-RADS BI-RADS 1 - Negative RECOMMENDATION: 1 year F/U This patient's information was entered into a reminder system with a target due date for their next mammogram.
== END 2023-05-22 09:26 | disposition home or self-care (01) ==
LOC: HO.MAMMO 09:25
PROVIDERS: PCP Internal Medicine; Visit Provider Internal Medicine
DX: R91.1 Solitary pulmonary nodule (principal)
CPT/HCPCS: 77062; 77065

== ENCOUNTER → 2023-05-22 09:30 | Outpatient (BNV) | payer OTHER, SELFPAY | PROVIDERS: PCP Internal Medicine; Visit Provider Radiology Diagnostic Radiology | DX: R92.1 Mammographic calcification found on diagnostic imaging of breast (principal) | CPT/HCPCS: 77065 ==

== ENCOUNTER 2023-12-16 14:23 | Outpatient (AMB) | payer OTHER, SELFPAY ==
--- NOTE | 2023-12-16 14:32 | A.OFFPC_ITS ---
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 Accompanied by: Self / Same As Patient Allergies No Known Allergies Allergy (Verified 12/16/23 14:42) Medication List - Last Reconciled 12/16/23 by Olive Gaxiola MD ascorbic acid (vitamin C) (Vitamin C) 500 mg PO DAILY cholecalciferol (vitamin D3) (Vitamin D3) 25 mcg PO DAILY magnesium oxide 500 mg PO DAILY vitamin A 2,400 mcg PO DAILY vitamin A69-kspbc acid 0.5-1 mg 1 tab PO DAILY vitamin E 200 units PO DAILY Tobacco use date assessed: 12/16/23 Dental Screening Dental Screen Date: 12/16/23 Did you have a dental visit in the last 12 months?: Yes Did you have a dental problem in the last 6 months where you did not have access to dental care?: No Was dental information given to patient?: Patient has dentist HPI HPI Comments History of Present Illness Details This is a 48-year-old female that comes for her physical exam. Last mammogram was 2022. Last colonoscopy was 2021. Last Pap smear was 2019. No chest pain or shortness of breath. No fever or cough. [facility] Medical History Hot flashes Elevated cholesterol Neck pain Back pain Hypovitaminosis D Sinusitis Surgical History Status post hysteroscopic polypectomy History of bunionectomy Family History Mother Diabetes Father Diabetes Other Mental health disorder Social History Housing: House Alcohol intake: current Alcohol intake frequency: a few times a month Alcohol type: wine and hard liquor Patient Tobacco Use Status: Former Tobacco user Quit Date: 30 years ago Tobacco use type: Cigarette e-Cigarette/Vaping Use: Never Used Second Hand Smoke Exposure: No service: No Current occupational status: employed Current occupational exposures/hazards: No Sexual orientation: Straight/Heterosexual Gender identity: Female Cognitive needs: No Hearing needs: No Vision needs: Yes (glasses) Questionnaire PHQ-9 Over the last 2 weeks, how often have you been bothered by any of the following problems? 1. Little interest or pleasure in doing things: not at all 2. Feeling down, depressed, or hopeless: not at all 3. Trouble falling or staying asleep, or sleeping too much: not at all 4. Feeling tired or having little energy: not at all 5. Poor appetite or overeating: not at all 6. Feeling bad about yourself - or that you are a failure or have let yourself or your family down: not at all 7. Trouble concentrating on things, such as reading the newspaper or watching television: not at all 8. Moving or speaking so slowly that other people could have noticed. Or the opposite - being so fidgety or restless that you have been moving around a lot more than usual: not at all 9. Thoughts that you would be better off or of hurting yourself in some way: not at all Total score: 0 Depression Screening Interpretation: Negative Depression Screening Done: Yes 68152 - PHQ-9 Billing: Yes Source: Developed by Drs. Luke Peters, Maggie Morillo, Jian Fernandez and colleagues, with an educational romeo from [employer]. Thrive Questionnaire Date Thrive assessed: 12/16/23 I am a: Patient What is your living situation today?: I have a steady place to live Within the past 12 months, did the food you bought not last and you didn't have the money to get more?: Never true Within the past 12 months, did you worry whether your food would run out before you got money to buy more?: Never true Do you have trouble paying for medicines?: No Do you have trouble getting transportation to medical appointments?: No Do you have trouble paying your heating and electricity bill?: No Do you have trouble taking care of your child, family member or friend?: No Do you have trouble with day-to-day activities such as bathing, preparing meals, shopping, managing finances, etc.?: No Are you currently unemployed and looking for a job?: No Are you interested in more education?: No Please select the resources that you would like help with: None Currently or been in a relationship where the following occur: no concerns reported THRIVE Score: 0 AUDIT C Alcohol Use Questionnaire (AUDIT-C) 1. How often do you have a drink containing alcohol?: 2-4 times a month 2. How many drinks containing alcohol do you have on a typical day when you are drinking?: 1 or 2 3. How often do you have six or more drinks on one occasion?: Never Total Score: 2 MARY-7 AMB Questionnaire MARY-7 Date MARY - 7 assessed: 12/16/23 Feeling nervous, anxious, or on edge: 0 = Not at all Not being able to stop or control worryin = Not at all Worrying too much about different things: 0 = Not at all Trouble relaxin = Not at all Being so restless that it is hard to sit still: 0 = Not at all Becoming easily annoyed or irritable: 0 = Not at all Feeling afraid as if something awful might happen: 0 = Not at all Total MARY-7 score (0-4 normal; 5-9 mild; 10-14 moderate; 15-21 severe): 0 Source: Developed by Drs. Luke Peters, Maggie Morillo, Jian Fernandez and colleagues, with an educational romeo from [employer]. MARY-7 Assessment Billing MARY-7 Assessment Tool: MARY-7 Assessment 72746 Review of Systems Const All systems reviewed & are unremarkable except as noted in HPI and below Eyes Reports no additional complaints, Denies change in vision and Denies other visual disturbances Card Denies chest pain at rest, Denies chest pain with activity, Denies edema, Denies irregular heart rhythm, Denies claudication, Denies dyspnea, Denies dyspnea on exertion, Denies orthopnea, Denies paroxysmal nocturnal dyspnea and Denies slow heart rate Resp Denies cough, Denies dyspnea and Denies dyspnea on exertion GI Denies abdominal pain, Denies change in bowel habits, Denies excessive flatus, Denies nausea and Denies vomiting Denies urinary incontinence, Denies urinary hesitancy and Denies urinary urgency Musc Denies abnormal gait, Denies atrophy, Denies deformity and Denies limited range of motion Skin/Breast Denies bleeding lesions, Denies changing lesions and Denies rash Neuro Denies abnormal gait, Denies behavioral changes, Denies confusion and Denies lack of coordination Psych Denies behavioral changes and Denies confusion Physical exam (Primary Care) Vital Signs: Last Vital Signs BP 108/70 12/16/23 14:33 BMI result Body Mass Index 23.0 Tobacco/Smoking Status: Tobacco use Status Tobacco use date assessed 12/16/23 12/16/23 14:38 Patient Tobacco Use Status Former Tobacco user 12/16/23 14:38 Tobacco use type Cigarette 12/16/23 14:38 e-Cigarette/Vaping Use Never Used 12/16/23 14:38 PHQ-9: PHQ-9 Score PHQ-9: Total score 0 12/16/23 14:45 Depression Screening Interpretation: Negative Thrive Assessment: Date of Thrive Assessment Date Thrive assessed 12/16/23 12/16/23 14:38 Currently or been in a relationship where the following occur: no concerns reported Const General: No confusion Orientation/consciousness: patient oriented x3 and No confusion HENMT Head: Yes normal to inspection, Yes normocephalic and Yes atraumatic Ears: external ears normal Eyes General: appearance normal, both eyes and all related structures Eyelids: Yes eyelids normal Conjunctivae: conjunctivae normal Neck Neck: Yes normal visual inspection and Yes supple Resp Effort & Inspection: normal respiratory effort Auscultation: clear to auscultation bilaterally Cardio Jugular venous distension: no JVD Rate: regular rate Rhythm: regular rhythm Heart sounds: S1 normal heart sound present and S2 normal heart sound present GI Inspection: Yes normal to inspection Palpation (GI): Soft to palpation and nontender Auscultation: normal bowel sounds Skin General skin exam: no rashes or lesions noted Neuro General: patient oriented x3, no focal motor deficits and No confusion Extrem General: Yes full ROM Psych Appearance: grossly normal Assessment and Plan Assessment & Plan (1) Physical exam: Comment: Pap due in 01/[address] Meza. Hx of endometrius polyp. Due for colonoscopy. Mammo UTD from 03/2021. Code(s): Z00.00 - Encounter for general adult medical examination without abnormal findings Plan: Repeat in a year. Orders: Orders Vitamin D 25-OH Total Today E55.9 - Vitamin D deficiency, unspecified Vitamin B12 and Folate Today E53.8 - Deficiency of other specified B group vitamins Lipid Panel Today E78.5 - Hyperlipidemia, unspecified Complete Blood Count Auto Diff Today D64.9 - Anemia, unspecified IRON PROFILE Today D64.9 - Anemia, unspecified Vitamin B1 Today E51.9 - Thiamine deficiency, unspecified Vitamin A Today E50.9 - Vitamin A deficiency, unspecified Magnesium Today E61.2 - Magnesium deficiency Referrals Podiatry Referral M21.611 - Bunion of right foot Coding Level of Care Code Est Pt Prev Care 40-64y(83679) Diagnoses Physical exam Z00.00 Additional Codes MARY-7 Assessment Billing - MARY-7 Assessment Tool: MARY-7 Assessment 73647 ([id number]) Time Spent (min) 31
[2023-12-16 14:33] VITALS: BP 108/70; BMI 23.0
== END 2023-12-16 14:52 | disposition home or self-care (01) ==
PROVIDERS: PCP Internal Medicine; Visit Provider Internal Medicine
DX: Z00.00 Encounter for general adult medical examination without abnormal findings (principal); E55.9 Vitamin D deficiency, unspecified
CPT/HCPCS: 99396

== ENCOUNTER 2024-01-07 07:40 | Outpatient (REF) | payer OTHER, SELFPAY ==
[2024-01-07 08:00] LABS: MANUAL DIFF FLAG NO
[2024-01-07 08:10] LABS: Basophils Percent Auto 0.8 % (0-2); Eosinophils Absolute Auto 0.1 X10*3/uL (0.0-0.4); Eosinophils Percent Auto 1.9 % (0-4); Hematocrit 37.9 % (37.0-47.0); Hemoglobin 12.7 g/dl (12.0-16.0); Imm Gran Abs Auto 0.01 X10*3/uL (0.00-0.03); Imm Gran Pct Auto 0.3 % (0.0-0.4); Lymphocytes Absolute Auto 1.4 X10*3/uL (1.2-4.9); Lymphocytes Percent Auto 37.6 % (20-40); Mean Corpuscular HGB Conc 33.5 g/dl (31.0-35.0); Mean Corpuscular Hemoglobin 31.1 pg (27.0-33.0); Mean Corpuscular Volume 92.9 fL (80.0-98.0); Mean Platelet Volume 10.2 fL (9.4-12.3); Monocytes Absolute Auto 0.3 X10*3/uL (0.1-1.2); Monocytes Percent Auto 8.4 % (2-11); Neutrophils Absolute Auto 1.8 x10*3/uL (2.0-8.3); Platelet Count 203 X10*3/uL (160-400); Red Blood Count 4.08 X10*6/uL (4.20-5.50); Red Cell Distribution Width 11.9 % (11.0-16.0); White Blood Count 3.6 X10*3/uL (4.8-10.8)
[2024-01-07 08:39] LABS: Cholesterol 275 mg/dL (<200); HDL Cholesterol 65 mg/dL (>40); Iron 137 mcg/dL (30-160); LDL Cholesterol Calculated 188 mg/dL (<100); Magnesium 1.9 mg/dL (1.6-2.6); Percent Iron Saturation 43 % (15-50); Total Iron Binding Capacity 318 mcg/dL (228-428); Triglycerides 111 mg/dL (<150); Unsaturated Iron Binding 181 ug/dL
[2024-01-07 08:50] LABS: Vitamin D 25-OH Total 39.5 ng/mL (>30)
[2024-01-07 12:19] LABS: Folate 9.3 ng/mL (> or = 4.0); Vitamin B12 381 pg/mL (200-900)
[2024-01-12 05:14] LABS: Vitamin A 64 mcg/dL (38-98)
[2024-01-13 15:43] LABS: Vitamin B1 9 nmol/L (8-30)
== END 2024-01-07 07:41 | disposition home or self-care (01) ==
LOC: HO.LAB 07:40
PROVIDERS: PCP Internal Medicine; Visit Provider Internal Medicine
DX: E53.8 Deficiency of other specified B group vitamins (principal); E55.9 Vitamin D deficiency, unspecified; E51.9 Thiamine deficiency, unspecified; E50.9 Vitamin A deficiency, unspecified; E61.2 Magnesium deficiency; E78.5 Hyperlipidemia, unspecified; D64.9 Anemia, unspecified
CPT/HCPCS: 36415; 80061; 82306; 82607; 82746; 83540; 83735; 84425; 84590; 85025

== ENCOUNTER 2024-03-17 08:29 | Outpatient (REF) | payer OTHER, SELFPAY ==
[2024-03-23 22:47] LABS: HPV mRNA E6/E7 rflx Not Detected (Not Detected)
== END 2024-03-17 08:30 | disposition home or self-care (01) ==
LOC: HO.LNP 08:29
PROVIDERS: PCP Internal Medicine; Visit Provider Advanced Practice Midwife
DX: Z01.419 Encounter for gynecological examination (general) (routine) without abnormal findings (principal); N88.9 Noninflammatory disorder of cervix uteri, unspecified
CPT/HCPCS: 87624; 88142; 99396

== ENCOUNTER 2024-03-17 08:29 | Outpatient (AMB) | payer OTHER, SELFPAY ==
[2024-03-17 08:35] VITALS: BP 90/62; BMI 23.0
--- NOTE | 2024-03-17 08:35 | MHC.OFFVIS ---
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 She is doing well with no concerns. LMP 01/2023. Attempting to eat a healthy diet with calcium and vitamin D and stays active with exercise. Currently sexually active. Denies any vaginal dryness or irritation. STI testing offered; she declines. Last pap smear; 2019-history of endometrial cells on Pap, status post hysteroscopy and endometrial polypectomy. Last mammogram; 2022. Colonoscopy is UTD. Denies any family history of breast, ovarian or colon cancer. [facility] Medical History Hot flashes Elevated cholesterol Neck pain Back pain Hypovitaminosis D Sinusitis Surgical History Status post hysteroscopic polypectomy History of bunionectomy Family History Mother Diabetes Father Diabetes Other Mental health disorder Social History Housing: House Alcohol intake: current Alcohol intake frequency: a few times a month Alcohol type: wine and hard liquor Patient Tobacco Use Status: Former Tobacco user Quit Date: 30 years ago Tobacco use type: Cigarette e-Cigarette/Vaping Use: Never Used Second Hand Smoke Exposure: No service: No Current occupational status: employed Current occupational exposures/hazards: No Sexual orientation: Straight/Heterosexual Gender identity: Female Cognitive needs: No Hearing needs: No Vision needs: Yes (glasses) Female Reproductive History Menstrual Age of Menarche: 12 control method: none Total pregnancies: 1 Full term: 1 Number of Living Children: 1 Date of last pap smear: 11/17/19 (negative) Date of Mammogram: 05/22/23 Review of Systems Const All systems reviewed & are unremarkable except as noted in HPI and below Reports as per HPI Eyes Reports no additional complaints ENT Reports no additional complaints Card Reports no additional complaints Resp Reports no additional complaints GI Reports as per HPI and Reports no additional complaints Reports as per HPI Musc Reports no additional complaints Skin/Breast Reports as per HPI Neuro Reports no additional complaints Psych Reports no additional complaints Endo Reports no additional complaints Yonas/Lymph Reports no additional complaints Aller/Immun Reports no additional complaints Physical Exam Vital Signs: Last Vital Signs BP 90/62 03/17/24 08:35 BMI result Body Mass Index 23.0 Const General: cooperative, healthy appearing, no acute distress, well developed and alert Orientation/consciousness: patient oriented x3 HEENT Head: Yes normal to inspection Eyes General: appearance normal, both eyes and all related structures Neck Neck: Yes normal visual inspection Thyroid: Thyroid normal Chest Chest palpation & inspection: normal inspection of the chest and other (no puckering, dimpling, peau de orange, retraction, discharge, masses) Breast/axilla inspection: normal inspection of the breasts Breast/axilla palpation: normal palpation of the breasts Resp Effort & Inspection: normal respiratory effort GI Inspection: Yes normal to inspection Palpation (GI): Soft to palpation Rectal Exam - Female: deferred General: Yes bladder normal to palpation External Female Exam: normal external appearance and normal appearance of the urethra Speculum Exam - Vagina: normal appearance of the vagina, normal palpation and normal vaginal discharge Speculum Exam - Cervix: normal appearance of the cervix, normal palpation and Other cervical findings present (Lesion at 05:00 o'clock, small cervical polyp, bled with Pap) Bimanual exam- vagina & uterus: normal bimanual exam, normal palpation, uterine size normal, bladder normal to palpation, normal palpation and non-tender Bimanual Exam- Adnexa, other: no masses Skin General skin exam: no rashes or lesions noted Rashes: no rashes Neuro General: patient oriented x3 Cognition (Neuro): normal cognition Extrem General: Yes normal to inspection Psych Attitude: cooperative Thought process: Normal thought process present Assessment & Plan Assessment & Plan (1) Encounter for well woman exam with routine gynecological exam: Code(s): Z01.419 - Encounter for gynecological examination (general) (routine) without abnormal findings Plan Discussed: Current recommendations for pap smears per ASCCP guidelines. Pap obtained today due to cervical lesion. Breast awareness, periodic self breast exams and yearly mammogram. Maintain a healthy lifestyle, well balanced diet including Calcium 1,200 mg and Vitamin D 600 IU daily, and routine exercise. Discuss findings today of cervical polyp and lesion recommended appointment with Dr. Meza before further evaluation, appointment to be scheduled. Menopausal changes recommended [facility] website for review. Replens vaginal moisturizer if needed. Contact the office with any postmenopausal bleeding. Patient verbalizes understanding and agrees to the plan of care. She was given opportunity to ask questions and all questions were answered to the best of my ability. 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 This note is constructed using voice recognition software. While every effort has been made to ensure accuracy, bottom steep tender errors may have been included. Orders: Orders Pap Smear Today N88.9 - Noninflammatory disorder of cervix uteri, unspecified Coding Level of Care Code Est Pt Prev Care 40-64y(61975) Diagnoses Encounter for well woman exam with routine gynecological exam Z01.419
== END 2024-03-17 09:07 | disposition home or self-care (01) ==
PROVIDERS: PCP Internal Medicine; Visit Provider Advanced Practice Midwife
DX: Z01.419 Encounter for gynecological examination (general) (routine) without abnormal findings (principal)
CPT/HCPCS: 99396

== ENCOUNTER 2024-04-13 08:45 | Outpatient (REF) | payer OTHER, SELFPAY | END 2024-04-13 08:46 | disposition home or self-care (01) | LOC: HO.MAMMO 08:45 | PROVIDERS: PCP Internal Medicine; Visit Provider Internal Medicine | DX: Z12.31 Encounter for screening mammogram for malignant neoplasm of breast (principal) | CPT/HCPCS: 77063; 77067 ==

== ENCOUNTER → 2024-04-13 09:00 | Outpatient (BNV) | payer OTHER, SELFPAY | PROVIDERS: PCP Internal Medicine; Visit Provider Radiology Diagnostic Radiology | DX: Z12.31 Encounter for screening mammogram for malignant neoplasm of breast (principal) | CPT/HCPCS: 77063; 77067 ==

== ENCOUNTER 2024-06-22 09:49 | Outpatient (AMB) | payer OTHER, SELFPAY ==
[2024-06-22 09:57] VITALS: BP 114/70; BMI 22.7
--- NOTE | 2024-06-22 09:57 | MHC.OFFVIS ---
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 Co testing done in 03/18 was negative. The patient has no pelvic pain and or vaginal bleeding any other concerns [facility] Medical History Hot flashes Elevated cholesterol Neck pain Back pain Hypovitaminosis D Sinusitis Surgical History Status post hysteroscopic polypectomy History of bunionectomy Family History Mother Diabetes Father Diabetes Other Mental health disorder Social History Housing: House Alcohol intake: current Alcohol intake frequency: a few times a month Alcohol type: wine and hard liquor Patient Tobacco Use Status: Former Tobacco user Tobacco use type: Cigarette e-Cigarette/Vaping Use: Never Used Second Hand Smoke Exposure: No service: No Current occupational status: employed Current occupational exposures/hazards: No Sexual orientation: Straight/Heterosexual Gender identity: Female Cognitive needs: No Hearing needs: No Vision needs: Yes (glasses) Female Reproductive History Menstrual Age of Menarche: 12 Review of Systems Const All systems reviewed & are unremarkable except as noted in HPI and below Physical Exam Vital Signs: Last Vital Signs BP 114/70 06/22/24 09:57 BMI result Body Mass Index 22.7 General: Yes no CVA tenderness External Female Exam: normal external appearance and normal appearance of the urethra Speculum Exam - Vagina: normal appearance of the vagina, normal palpation, no lesions and no masses Speculum Exam - Cervix: normal appearance of the cervix (04:00 o'clock cervical lesion), normal palpation, no lesions, no masses, nontender and Other cervical findings present (Endocervical polyp) Bimanual exam- vagina & uterus: normal bimanual exam, normal palpation, uterine size normal, normal palpation, uterine shape normal, No Cervical tenderness present and non-tender Bimanual Exam- Adnexa, other: normal adnexae Back/Spine/Pelvis Back: no CVA tenderness Office Procedures BOGGER OPERATOR Biopsy Before the procedure was started, discussed with the patient the procedure technique, alternatives & all the risks associated with the procedure including but not limited to: bleeding , infection, uterine perforation, injury to bladder, vessels, bowels, possible need for transfusion with all its risks, and others. All questions were answered, the patient verbalized understanding and signed the consent. Using a long Alma Rosa Clamp the endocervical polyp was grasped and twisted around till it came off, hemostasis was secured using pressure. This was followed by 04:00 o'clock cervical lesion biopsy using punch biopsy forceps. Monsel's solution was used to secure hemostasis afterwards. The patient tolerated the procedure well. Instructions were given to the patient to call if bleeding, temp>100.4 occur. The patient verbalized understanding and agreed with the plan. This note was generated with a voice recognition program. Some errors may have been overlooked during the review of this note. Sometimes these errors may affect the content or meaning of a given sentence. 76443-Nxnfxm of Vulva/Perineum 18404-Avlawg of Cervix Procedure code (CPT) selection complete Assessment & Plan Assessment & Plan (1) Abnormal cervix finding: Comment: 04:00 o'clock cervical lesion Code(s): N88.9 - Noninflammatory disorder of cervix uteri, unspecified Category: Medical Plan: Discussed with the patient the finding on cervical exam showing a 4 o'clock cervical lesion, cervical biopsy taken, see procedure note (2) Endocervical polyp: Code(s): N84.1 - Polyp of cervix uteri Category: Medical Plan: Discussed with the patient the finding on pelvic exam showing endocervical lesion, polypectomy done, see procedure note Orders: Orders AMB BOGGER OPERATOR Biopsy Today N84.1 - Polyp of cervix uteri, N88.9 - Noninflammatory disorder of cervix uteri, unspecified Coding Level of Care Code Est Pt Level 3 (19920) Procedure Only Diagnoses Abnormal cervix finding N88.9 Endocervical polyp N84.1 CPT Codes BOGGER OPERATOR Biopsy - CPT: 44006-Ntdjbz of Vulva/Perineum ([id number]) BOGGER OPERATOR Biopsy - CPT: 77806-Fudhcu of Cervix ([id number])
== END 2024-06-22 10:20 | disposition home or self-care (01) ==
LOC: HO.HWS 09:49
PROVIDERS: PCP Internal Medicine; Visit Provider Obstetrics & Gynecology
DX: N84.1 Polyp of cervix uteri (principal); N88.9 Noninflammatory disorder of cervix uteri, unspecified
CPT/HCPCS: 57500

== ENCOUNTER 2024-06-22 09:49 | Outpatient (REF) | payer OTHER, SELFPAY | END 2024-06-22 09:50 | disposition home or self-care (01) | LOC: HO.LNP 09:49 | PROVIDERS: PCP Internal Medicine; Visit Provider Obstetrics & Gynecology | DX: N84.1 Polyp of cervix uteri (principal); N88.9 Noninflammatory disorder of cervix uteri, unspecified | CPT/HCPCS: 57500; 88305 ==

== ENCOUNTER 2024-08-04 10:17 | Outpatient (AMB) | payer OTHER, SELFPAY ==
[2024-08-04 10:21] VITALS: BMI 22.7
--- NOTE | 2024-08-04 10:21 | MHC.OFFVIS ---
Vital Signs 08/04/24 10:21 Height 5 ft 4 in Weight 132 lb 4.438 oz BMI 22.7 Intake Visit Reasons: BIOPSY results Allergies No Known Allergies Allergy (Verified 06/22/24 10:00) HPI Comments Details: Presenting for follow-up cervical polypectomy and biopsy doing well with no complaints. The pathology showed the following: A. Cervix, polypectomy: Inflamed cervical polyp with reactive changes. B. Cervix, 4 o'clock, biopsy: Inflamed cervical transformation zone mucosa with reactive changes PFSH Medical History Hot flashes Elevated cholesterol Neck pain Back pain Hypovitaminosis D Sinusitis Surgical History Status post hysteroscopic polypectomy History of bunionectomy Family History Mother Diabetes Father Diabetes Other Mental health disorder Social History Housing: House Alcohol intake: current Alcohol intake frequency: a few times a month Alcohol type: wine and hard liquor Patient Tobacco Use Status: Former Tobacco user Tobacco use type: Cigarette e-Cigarette/Vaping Use: Never Used Second Hand Smoke Exposure: No service: No Current occupational status: employed Current occupational exposures/hazards: No Sexual orientation: Straight/Heterosexual Gender identity: Female Cognitive needs: No Hearing needs: No Vision needs: Yes (glasses) Female Reproductive History Menstrual Age of Menarche: 12 Review of Systems Const All systems reviewed & are unremarkable except as noted in HPI and below Reports as per HPI and Reports no additional complaints GI Reports no additional complaints Reports no additional complaints Physical Exam Vital Signs: BMI result Body Mass Index 22.7 Assessment & Plan Assessment & Plan (1) Endocervical polyp: Code(s): N84.1 - Polyp of cervix uteri Category: Medical Plan: Discussed with the patient the results the pathology, the patient was reassured. Instructions given the patient to call in case of abnormal vaginal bleeding, postcoital bleeding or pain. All questions answered, the patient verbalized understanding (2) Abnormal cervix finding: Comment: 04:00 o'clock cervical lesion Code(s): N88.9 - Noninflammatory disorder of cervix uteri, unspecified Category: Medical Plan: Discussed with the patient the results the pathology, the patient was reassured. All questions answered, the patient verbalized understanding Coding Level of Care Code Est Pt Level 3 (81286) Diagnoses Endocervical polyp N84.1 Abnormal cervix finding N88.9
== END 2024-08-04 10:53 | disposition home or self-care (01) ==
PROVIDERS: PCP Internal Medicine; Visit Provider Obstetrics & Gynecology
DX: N84.1 Polyp of cervix uteri (principal); N88.9 Noninflammatory disorder of cervix uteri, unspecified
CPT/HCPCS: 99213

== ENCOUNTER → 2024-08-04 10:17 | Outpatient (BNVA) | payer OTHER, SELFPAY | PROVIDERS: PCP Internal Medicine; Visit Provider Obstetrics & Gynecology | DX: N84.1 Polyp of cervix uteri (principal); N88.9 Noninflammatory disorder of cervix uteri, unspecified | CPT/HCPCS: 99212 ==

== ENCOUNTER 2024-10-31 08:51 | Outpatient (AMB) | payer OTHER, SELFPAY ==
[2024-10-31 08:56] VITALS: BP 110/62; PULSE 80; O2SAT 96; BMI 23.5
--- NOTE | 2024-10-31 08:56 | MHC.PC.OV ---
Vital Signs 10/31/24 08:56 Height 5 ft 4 in Weight 137 lb BMI 23.5 BP 110/62 Blood Pressure Location Lt brachial Position Sitting Pulse 80 Pulse Source Pulse Oximeter Pulse Oximetry (%) 96 Oxygen Delivery Method Room Air Intake Visit Reasons: [facility]/Bunionectomy 11/25/24 Allergies No Known Allergies Allergy (Verified 10/31/24 09:48) Medication List - Last Reconciled 10/31/24 by Olive Gaxiola MD ascorbic acid (vitamin C) (Vitamin C) 500 mg PO DAILY cholecalciferol (vitamin D3) (Vitamin D3) 25 mcg PO DAILY magnesium oxide 500 mg PO DAILY [ostioflex buccal] vitamin A 2,400 mcg PO DAILY vitamin Z10-xtdkf acid 0.5-1 mg 1 tab PO DAILY vitamin E 200 units PO DAILY Tobacco use date assessed: 10/31/24 Dental Screening Dental Screen Date: 10/31/24 Did you have a dental visit in the last 12 months?: Yes Did you have a dental problem in the last 6 months where you did not have access to dental care?: No Was dental information given to patient?: Patient has dentist HPI HPI Comments History of Present Illness Details The patient is a 49-year-old female presenting for a preoperative evaluation for a bunionectomy scheduled for November 25. She has a history of a previous bunionectomy on her left foot. During the conversation, she confirmed no current manifestations of chest pain or shortness of breath. Her compliance with vitamin supplementation, including vitamins C, D, A, B12, and E, and magnesium, was noted. She denies any depression or anxiety. As part of her preoperative assessment, an EKG and fasting blood work are deemed necessary to ensure cardiac stability before surgery. The patient also indicated an upcoming appointment for a general physical examination in November, and it was agreed that the forthcoming blood work would serve both the preoperative and preventive health purposes. She has 5-7 Mets of ADLs. [facility] Medical History (Updated 10/31/24 @ 09:55 by Olive Gaxiola MD) Hot flashes Elevated cholesterol Neck pain Back pain Hypovitaminosis D Sinusitis Surgical History Status post hysteroscopic polypectomy History of bunionectomy Family History Mother Diabetes Father Diabetes Other Mental health disorder Social History Housing: House Alcohol intake: current Alcohol intake frequency: a few times a month Alcohol type: wine and hard liquor Patient Tobacco Use Status: Former Tobacco user Tobacco use type: Cigarette e-Cigarette/Vaping Use: Never Used Second Hand Smoke Exposure: No service: No Current occupational status: employed Current occupational exposures/hazards: No Sexual orientation: Straight/Heterosexual Gender identity: Female Cognitive needs: No Hearing needs: No Vision needs: Yes (glasses) Female Reproductive History Menstrual Age of Menarche: 12 Questionnaire PHQ-9 Over the last 2 weeks, how often have you been bothered by any of the following problems? 1. Little interest or pleasure in doing things: not at all 2. Feeling down, depressed, or hopeless: not at all 3. Trouble falling or staying asleep, or sleeping too much: not at all 4. Feeling tired or having little energy: not at all 5. Poor appetite or overeating: not at all 6. Feeling bad about yourself - or that you are a failure or have let yourself or your family down: not at all 7. Trouble concentrating on things, such as reading the newspaper or watching television: not at all 8. Moving or speaking so slowly that other people could have noticed. Or the opposite - being so fidgety or restless that you have been moving around a lot more than usual: not at all 9. Thoughts that you would be better off or of hurting yourself in some way: not at all Total score: 0 Depression Screening Interpretation: Negative Depression Screening Done: Yes 17407 - PHQ-9 Billing: Yes Source: Developed by Drs. Luke Peters, Maggie Morillo, Jian Fernandez and colleagues, with an educational romeo from [address]. Thrive Questionnaire Date Thrive assessed: 10/31/24 I am a: Patient What is your living situation today?: I have a steady place to live Within the past 12 months, did the food you bought not last and you didn't have the money to get more?: Never true Within the past 12 months, did you worry whether your food would run out before you got money to buy more?: Never true Do you have trouble paying for medicines?: No Do you have trouble getting transportation to medical appointments?: No Do you have trouble paying your heating and electricity bill?: No Do you have trouble taking care of your child, family member or friend?: No Do you have trouble with day-to-day activities such as bathing, preparing meals, shopping, managing finances, etc.?: No Are you currently unemployed and looking for a job?: No Are you interested in more education?: No Please select the resources that you would like help with: None Currently or been in a relationship where the following occur: No concerns reported THRIVE Score: 0 AUDIT C Alcohol Use Questionnaire (AUDIT-C) 1. How often do you have a drink containing alcohol?: 2-4 times a month 2. How many drinks containing alcohol do you have on a typical day when you are drinking?: 3 or 4 3. How often do you have six or more drinks on one occasion?: Never Total Score: 3 MARY-7 AMB Questionnaire MARY-7 Date MARY - 7 assessed: 10/31/24 Feeling nervous, anxious, or on edge: 0 = Not at all Not being able to stop or control worryin = Not at all Worrying too much about different things: 0 = Not at all Trouble relaxin = Not at all Being so restless that it is hard to sit still: 0 = Not at all Becoming easily annoyed or irritable: 0 = Not at all Feeling afraid as if something awful might happen: 0 = Not at all Total MARY-7 score (0-4 normal; 5-9 mild; 10-14 moderate; 15-21 severe): 0 Source: Developed by Drs. Luke Peters, Maggie Morillo, Jian Fernandez and colleagues, with an educational romeo from [address]. MARY-7 Assessment Billing MARY-7 Assessment Tool: MARY-7 Assessment 32071 Review of Systems Const Details: - Cardiovascular: Denies chest pain. - Respiratory: Denies shortness of breath. - Psychological: Denies depression and anxiety. - Gastrointestinal: No issues reported with bowel movements. Physical exam (Primary Care) Vital Signs: Last Vital Signs Pulse 80 10/31/24 08:56 BP 110/62 10/31/24 08:56 Pulse Ox 96 10/31/24 08:56 Oxygen Delivery Method Room Air 10/31/24 08:56 BMI result Body Mass Index 23.5 Tobacco/Smoking Status: Tobacco use Status Tobacco use date assessed 10/31/24 10/31/24 09:01 Patient Tobacco Use Status Former Tobacco user 10/31/24 09:01 Tobacco use type Cigarette 10/31/24 09:01 e-Cigarette/Vaping Use Never Used 10/31/24 09:01 PHQ-9: PHQ-9 Score PHQ-9: Total score 0 10/31/24 09:51 Depression Screening Interpretation: Negative Thrive Assessment: Date of Thrive Assessment Date Thrive assessed 10/31/24 10/31/24 09:01 Currently or been in a relationship where the following occur: No concerns reported Const Other: General: No confusion Respiratory: Normal respiratory effort, clear to auscultation bilaterally Cardiovascular: No jugular venous distension, regular rate, regular rhythm, S1 normal heart sound present and S2 normal heart sound present Neurology: Patient oriented x3, no focal motor deficits and No confusion Extremities: Full ROM Psychology: Grossly normal Coding Level of Care Code Est Pt Level 3 (40601) Complex EM visit Add On G2211 Diagnoses Pre-op evaluation Z01.818 Bunion, right foot M21.611 Additional Codes MARY-7 Assessment Billing - MARY-7 Assessment Tool: MARY-7 Assessment 57370 ([id number]) PHQ-9 - 52291 - PHQ-9 Billing: Yes ([id number]) Time Spent (min) 19 Assessment & Plan Assessment & Plan (1) Pre-op evaluation: Code(s): Z01.818 - Encounter for other preprocedural examination Category: Medical (2) Bunion, right foot: Code(s): M21.611 - Bunion of right foot Category: Medical Plan - EKG and fasting blood work to be conducted before the scheduled surgery to assess cardiovascular health. - Coordination with Dr. Xavier for surgical logistics and ensuring readiness for the procedure. - Preoperative clearance pending completion and evaluation of diagnostic tests. Patient was informed and verbally consented to the use of an ambient scribe for clinic note documentation during this visit. We discussed the need for preoperative testing, including an EKG and fasting blood work, to confirm that her heart is in good condition for the upcoming bunionectomy. I informed her that these tests should ideally be completed within the week to facilitate timely clearance for surgery. The patient acknowledged the plan to use her upcoming blood work for both the surgical clearance and her forthcoming physical in November. We also confirmed the surgical details with Dr. Xavier, with a scheduled procedure date of November 25. I reiterated the importance of compliance with the prescribed plan, including the continuation of current medications as per her vitamin regimen. Orders: Orders Vitamin D 25-OH Total Today E55.9 - Vitamin D deficiency, unspecified Vitamin B12 and Folate Today E53.8 - Deficiency of other specified B group vitamins Comprehensive [place]. Panel Fast Today Z01.818 - Encounter for other preprocedural examination ECG 12 lead EKG Today Z01.818 - Encounter for other preprocedural examination Lipid Panel Today E78.5 - Hyperlipidemia, unspecified Magnesium Today E61.2 - Magnesium deficiency Vitamin A Today E50.9 - Vitamin A deficiency, unspecified Vitamin B1 Today E51.9 - Thiamine deficiency, unspecified Complete Blood Count Auto Diff Today M21.611 - Bunion of right foot Patient Instructions: - Complete an EKG and fasting blood work before the end of this week. - Follow up with my office once diagnostic tests are completed to confirm surgical clearance. - Continue with current vitamin supplementation. - Stay informed about any changes in her health and report them promptly.
== END 2024-10-31 09:58 | disposition home or self-care (01) ==
PROVIDERS: PCP Internal Medicine; Visit Provider Internal Medicine
DX: Z01.818 Encounter for other preprocedural examination (principal); M21.611 Bunion of right foot

== ENCOUNTER → 2024-10-31 08:51 | Outpatient (BNVA) | payer OTHER, SELFPAY | PROVIDERS: PCP Internal Medicine; Visit Provider Internal Medicine | DX: Z01.818 Encounter for other preprocedural examination (principal); M21.611 Bunion of right foot; E53.8 Deficiency of other specified B group vitamins; E78.5 Hyperlipidemia, unspecified; E61.2 Magnesium deficiency; E50.9 Vitamin A deficiency, unspecified; E51.9 Thiamine deficiency, unspecified | CPT/HCPCS: 96127; 99212 ==

== ENCOUNTER 2024-11-01 08:08 | Outpatient (REF) | payer OTHER, SELFPAY ==
--- NOTE | 2024-11-01 08:17 | ECG_ITS ---
Test Reason : preproc Blood Pressure : */* mmHG Vent. Rate : 55 BPM Atrial Rate : 55 BPM P-R Int : 128 ms QRS Dur : 80 ms QT Int : 426 ms P-R-T Axes : 63 14 63 degrees QTcB Int : 407 ms Sinus bradycardia with sinus arrhythmia Otherwise normal ECG No significant changes when compared with the previous EKG of apr 22 2023, increase in ventricular rate Referred By: Olive Gaxiola Electronically Signed By: MAX GOMEZ
[2024-11-01 08:34] LABS: MANUAL DIFF FLAG NO
[2024-11-01 08:58] LABS: Basophils Percent Auto 0.6 % (0-2); Eosinophils Absolute Auto 0.1 X10*3/uL (0.0-0.4); Eosinophils Percent Auto 2.5 % (0-4); Hematocrit 38.9 % (37.0-47.0); Hemoglobin 12.9 g/dl (12.0-16.0); Imm Gran Abs Auto 0.01 X10*3/uL (0.00-0.03); Imm Gran Pct Auto 0.3 % (0.0-0.4); Lymphocytes Absolute Auto 0.9 X10*3/uL (1.2-4.9); Lymphocytes Percent Auto 28.8 % (20-40); Mean Corpuscular HGB Conc 33.2 g/dl (31.0-35.0); Mean Corpuscular Hemoglobin 30.9 pg (27.0-33.0); Mean Corpuscular Volume 93.3 fL (80.0-98.0); Mean Platelet Volume 9.7 fL (9.4-12.3); Monocytes Absolute Auto 0.4 X10*3/uL (0.1-1.2); Monocytes Percent Auto 12.7 % (2-11); Neutrophils Absolute Auto 1.8 x10*3/uL (2.0-8.3); Neutrophils Percent Auto 55.1 % (45-73); Platelet Count 243 X10*3/uL (160-400); Red Blood Count 4.17 X10*6/uL (4.20-5.50); Red Cell Distribution Width 12.2 % (11.0-16.0); White Blood Count 3.2 X10*3/uL (4.8-10.8)
[2024-11-01 09:33] LABS: Alanine Aminotransferase 39 U/L (0-31); Albumin Level 4.5 g/dL (3.5-5.0); Alkaline Phosphatase 60 U/L (39-117); Anion Gap 9 (12-20); Aspartate Amino Transferase 33 U/L (5-31); Bilirubin Total 0.7 mg/dL (0.0-1.0); Blood Urea Nitrogen 13 mg/dL (9-16); Calcium 9.6 mg/dL (8.4-10.2); Carbon Dioxide 28 mmol/L (22-29); Chloride 107 mmol/L (96-108); Cholesterol 251 mg/dL (<200); Estimated Glomerular Filt Rate > 60; Glucose Fasting 144 mg/dL (60-99); HDL Cholesterol 53 mg/dL (>40); LDL Cholesterol Calculated 171 mg/dL (<100); Magnesium 2.1 mg/dL (1.6-2.6); Potassium 4.4 mmol/L (3.3-5.1); Sodium 140 mmol/L (135-145); Total Protein 7.6 g/dL (6.5-8.0); Triglycerides 136 mg/dL (<150)
[2024-11-01 10:00] LABS: Folate 11.5 ng/mL (> or = 4.0); Vitamin B12 609 pg/mL (200-900)
[2024-11-05 01:17] LABS: Vitamin A 62 mcg/dL (38-98)
[2024-11-06 15:29] LABS: Vitamin B1 8 nmol/L (8-30)
== END 2024-11-01 08:09 | disposition home or self-care (01) ==
LOC: HO.LAB 08:08
PROVIDERS: PCP Internal Medicine; Visit Provider Internal Medicine
DX: Z01.818 Encounter for other preprocedural examination (principal); E53.8 Deficiency of other specified B group vitamins; E78.5 Hyperlipidemia, unspecified; E61.2 Magnesium deficiency; M21.611 Bunion of right foot; E55.9 Vitamin D deficiency, unspecified; E50.9 Vitamin A deficiency, unspecified; E51.9 Thiamine deficiency, unspecified
CPT/HCPCS: 36415; 80053; 80061; 82306; 82607; 82746; 83735; 84425; 84590; 85025; 93005

== ENCOUNTER → 2024-11-01 08:17 | Outpatient (BNV) | payer OTHER, SELFPAY | PROVIDERS: PCP Internal Medicine; Visit Provider Internal Medicine | DX: R00.1 Bradycardia, unspecified (principal) | CPT/HCPCS: 93010 ==

== ENCOUNTER 2024-12-07 07:42 | Outpatient (AMB) | payer OTHER, SELFPAY ==
--- NOTE | 2024-12-07 07:43 | A.OFFVIS_ITS ---
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 She reports LMP age 48-49, initially had hot flashes but then diminished and stopped for a while. She reports trying some [id number] estrogen pills and other product which did not seem to help her. She reports a hot flashes or all day and throughout the night, worse when she was in [place] on vacation and when she had alcohol. History of hyperlipidemia. She admits to having a healthy diet. She denies any new medical changes, medications, recent surgery last month for bunionectomy, she denies the use of narcotics. [facility] Medical History Hot flashes Elevated cholesterol Neck pain Back pain Hypovitaminosis D Sinusitis Surgical History Status post hysteroscopic polypectomy History of bunionectomy Family History Mother Diabetes Father Diabetes Other Mental health disorder Social History Housing: House Alcohol intake: current Alcohol intake frequency: a few times a month Alcohol type: wine and hard liquor Patient Tobacco Use Status: Former Tobacco user Tobacco use type: Cigarette e-Cigarette/Vaping Use: Never Used Second Hand Smoke Exposure: No service: No Current occupational status: employed Current occupational exposures/hazards: No Sexual orientation: Straight/Heterosexual Gender identity: Female Cognitive needs: No Hearing needs: No Vision needs: Yes (glasses) Female Reproductive History Menstrual Age of Menarche: 12 Review of Systems Const All systems reviewed & are unremarkable except as noted in HPI and below Endo Reports no additional complaints Physical Exam Const General: cooperative, healthy appearing and no acute distress Psych Appearance: well kempt Attitude: cooperative Thought process: Normal thought process present Assessment & Plan Assessment & Plan (1) Hot flashes: Code(s): R23.2 - [place] Category: Medical Plan Discussed: Avoidance of triggers: ?Alcohol and spicy foods Nonhormonal therapies for hot flashes. Self-help measures include: ?Cooling fabric mattress pad, pillow, wear layered clothing, remote control fan, hydrate well. Literature-menopause handout given. [place] [employer] (NAMS)website. ? Hot flashes occur up to 80% during menopausal transition. ? Multiple options for treatment would include: ?Gabapentin, HRT, or SSRI's. Advised to follow up with her primary care we will need a current TSH level, and a plan to review her lip hyperlipidemia, bled sugars overall cardiovascular risks. Evaluate literature and discussion and follow up for further conversation about plan of care. The patient expressed understanding and agreement with the plan of care. All of her questions and concerns were addressed to the best of my ability. This note is constructed using voice recognition software. While every effort has been made to ensure accuracy, information assurance officer errors may have been included. Orders: Orders Thyroid Stimulating Hormone Today R23.2 - [place] Coding Level of Care Code Est Pt Level 3 (17197) Diagnoses Hot flashes R23.2
--- OUTSIDE RECORDS SUMMARY | 2024-12-07 07:44 | XMS_ITS | Encounter Summary ---
Author Organization [employer] Address [address] [place] [address] Care Team Providers Care Centrifugal Wax Molder Name Role Phone Olive Gaxiola MD Primary Care Provider [phone] Reason for Visit * Auth/Cert (Routine) Specialty Diagnoses / Procedures Referred By Contac t Referred To Contact Diagnoses Hallux valgus (acquired), right foot HALLUX VALGUS RIGHT Procedures [place] CORRECTION HALLUX VALGUS WITH DISTAL METATARSAL OSTEOTOMY ANY METHOD BUNIONECTOMY RIGHT Mark Xavier DPM [address] [address] Phone: tel: fax: [facility] [place] [address] [place] [phone] Phone: tel: Referral ID Status Reason Start Date Expiration Date Visits Re quested Visits Authorized [id number] 1 1 Encounter Details Date Type Department Care Team (Late st Contact Info) Description 11/25/2024 5:43 AM EST - 11/25/2024 9:36 AM EST Hospital Encounter [facility] OR [address] [place] [address] Mark Xavier DPM [address] [address] Hallux valgus (acquired), right foot (Primary Dx); Bunion of right foot Discharge Disposition: Home or Self Care Social History Tobacco Use Types Packs/Day Years Used Date Smoking Tobacco: Former Cigarettes Smokeless Tobacco: Former Tobacco Cessation:Counseling Given: Not Answered Alcohol Use Standard Drinks/Week Comments Yes 4 (1 standard drink = 0.6 oz pur e alcohol) weekends Interpersonal Safety Answer Date Record ed Physical Abuse 11/25/2024 Verbal Abuse 11/25/2024 Comments No Sex and Gender Information Value Date Recorded Sex Assigned at Female 11/25/2024 5:42 AM EST Legal Sex Female 5:01 AM EST Gender Identity Female 11/25/2024 5:42 AM EST Sexual Orientation Straight 11/25/2024 5: 42 AM EST documented as of this encounter Last Filed Vital Signs Vital Sign Reading Time Taken Comments Blood Pressure 125/80 11/25/2024 9:02 AM EST Pulse 50 11/25/2024 9:02 AM EST Temperature 36 ??C (96.8 ??F) 11/25/2024 8:35 AM EST Respiratory Rate 12 11/25/2024 8:35 AM EST Oxygen Saturation 100% 11/25/2024 9:02 AM EST Inhaled Oxygen Concentration - - Weight 64.4 kg (142 lb) 11/04/2024 10:00 AM EST Height 162.6 cm (5' 4 ) 11/04/2024 10:00 AM EST Body Mass Index 24.37 11/04/2024 10:00 AM EST documented in this encounter Discharge Instructions * Attachments The following attachments cannot be sent through Care Everywhere. * Bunionectomy: Post-op (Nicaraguan) * Sedation ([place]icaraguan) documented in this encounter Medications at Time of Discharge ascorbic acid, vitamin C, 500 mg capsule Take 500 mg by mouth daily. cholecalciferol (VITAMIN D-3) 25 mcg (1,000 unit) capsule Take 25 mcg by mouth daily. fluticasone propionate (FLONASE) 50 mcg/actuation nasal spray 2 Sprays by Each Nare route daily. ibuprofen (ADVIL,MOTRIN) 800 mg tablet Take 1 tablet (800 mg total) by mouth 3 (three) times a day. 90 each 11/25/2024 12/25/2024 magnesium oxide-Mg AA chelate (Magnesium, oxide/AA chelate,) 300 mg capsule 1 tablet by chew route 1 (one) time each day at the same time. oxyCODONE (ROXICODONE) 5 mg immediate release tabletIndications :Hallux valgus (acquired), right foot,Bunion of right foot Take 1 tablet (5 mg total) by mouth every 4 (four) hours if needed for severe pain. Max Daily Amount: 30 mg 35 tablet 11/25/2024 vitamin E, dl, acetate, 90 mg (200 unit) capsule Take 1 capsule (200 Units total) by mouth 1 (one) time each day. acetaminophen (TYLENOL 8 HOUR) 650 mg 8 hr tablet Take 1 tablet (650 mg total) by mouth every 8 (eight) hours if needed for mild pain for up to 10 days. Do not crush, chew, or split. 30 tablet 11/25/2024 12/05/2024 documented as of this encounter Ordered Prescriptions Prescription Sig Dispense Quantity Refills Last Filled Start Date End Date oxyCODONE (ROXICODONE) 5 mg immediate release tabletIndications: Hallux valgus (acquired), right foot,Bunion of right foot Take 1 tablet (5 mg total) by mouth every 4 (four) hours if needed for severe pain. Max Daily Amount: 30 mg 35 tablet 11/25/2024 ibuprofen (ADVIL,MOTRIN) 800 mg tablet Take 1 tablet (800 mg total) by mouth 3 (three) times a day. 90 each 11/25/2024 12/25/2024 acetaminophen (TYLENOL 8 HOUR) 650 mg 8 hr tablet Take 1 tablet (650 mg total) by mouth every 8 (eight) hours if needed for mild pain for up to 10 days. Do not crush, chew, or split. 30 tablet 11/25/2024 12/05/2024 documented in this encounter Discharge Disposition Disposition Code Departure Means Destination Comment s Home or Self Care documented in this encounter H&P Notes * Mark Xavier DPM - 11/25/2024 7:17 AM EST History and Physical Update ( H&P completed within the previous thirty days ) I personally reviewed the History and Physical, interviewed and examined the patient prior to surgery. No changes have occurred in the patient's condition since the History and Physical was completed. Source Note - Mark Xavier DPM - 11/23/2024 8:00 AM EST S Patient presents today for chronic right great toe pain and discomfort she has had a chronic bunionto her right foot for several months over a year now states that she think she was born with that she notes is increased throbbing achy pain discomfort she would like to have it fixed presents today for surgical consultation states she has tried and failed all padding wider shoe and topical medications and is still something that affects her and her daily activities pain is reported be a 7 out of10 on a visual analog scale ROS: GENERAL: Pt denies nausea, fever, vomiting, chills, or shortness of breath. Pt in NAD. CARDIOLOGY: pt denies chest pain, palpitations LUNGS: pt denies shortness of breath MUSCULOSKELETAL: See HPI, otherwise no joint pain or swelling, back pain, or muscle pain. SKIN: see HPI, otherwise no lesions, rash or itching NEURO: No persistent headache, weakness or numbness The remainder of the review of systems is noncontributory PAST MEDICAL HISTORY: Patient Active Problem List Diagnosis Code Bunion of right foot M21.611 SOCIAL HISTORY: Social History Tobacco Use Smoking status: Not on file Smokeless tobacco: Not on file Substance Use Topics Alcohol use: Not on file History Last Reviewed by Bear Vela PA-C on 01/13/2018 at 10:23 AM Sections Reviewed Medical, Surgical, Family ACTIVE MEDICATIONS: Current Outpatient Medications Medication Sig Dispense Refill Ascorbic Acid (Vitamin C) 500 MG Cap Take 500 mg by mouth daily. Cholecalciferol (Vitamin D3) 25 MCG (1000 UT) Cap Take 25 mcg by mouth daily. vitamin E 200 units capsule Take 1 Capsule by mouth daily. fluticasone 50 MCG/ACT nasal spray 2 Sprays by Each Nare route daily. No current facility-administered medications for this visit. ALLERGIES: Patient has no known allergies. PHYSICAL EXAM: Weight 122 lb (55.3 kg). There is no height or weight on file to calculate BMI. PODIATRIC EXAMINATION: GENERAL: Patient appears well nourished, with NAD. VASCULAR: Dorsalis pedis pulses are 2/4 bilaterally and Posterior tibial pulses are 2/4 bilaterally. Capillary filling time within normal limits the digits. No pallor on elevation or rubor on dependency. Positive hair growth. No varicosities. Denies rest pain or claudication pain. NEUROLOGICAL: Sharp/dull sensation intact, protective sensation intact 10/10 with 5.07 semmes nicole bilaterally, vibratory sensation with tuning fork intact to the tibial tuberosity. ORTHOPEDIC: Good muscle strength 5/5 of all flexors and extensors. Dorsi flexion of ankle ,10 degrees, plantar flexion WNL. No muscle atrophy. DERMATOLOGICAL:.No masses or skin lesions noted. Normal skin temperature, normal skin turgor. BIOMECHANICS: STJ ROM wnl, MTJ ROM wnl, 1st MPJ ROM tracking right great toe bunion moderate bunion left foot mild to moderate bunion IMAGING: X-rays consistent with mild bunion deformity slight increase in intermetatarsal angulation slight increase in hallux adductovalgus angulation IMPRESSION: 1. Acquired hallux valgus of right foot PLAN: Pt was seen and examined, history reviewed. During today???s visit we discussed at great length the etiology, prognosis, and treatment options for the patient???s condition. Risks and benefits of operative and non operative treatment options were discussed. Treatment options for right foot jayna bunionectomy correction were discussed, non-operative treatment would involve tapping, strapping, adjustments in shoe gear, orthotics insoles, rest, bracing and edema control. There is potential for the deformities to stabilize without surgery yet there may still be a need for delayed surgery and distructive procedures. There is potential for non-union withsurgery and non-operative care would avoid incision problems and anesthesia risks. Surgery has added risks including but not limited to infection, incision pain, neuritis or numbness reoccurance of deformity, scar tissue contracture, worsening of deformity and loss of limb or life. right foot jayna bunionectomy healing was discussed in relation to operative treatment. Recovery and post operativeimmobilization was discussed based on the various treatment options. A decision was made to pursue right foot jayna bunionectomy surgery. Patient voices understanding of the risks and benefits and would like to proceed with surgery. Weight bearing status: NWB x 2 weeks followed by progressive WB x 10 weeks in a below the knee boot. Work&Activity restrictions: Impact of undergoing surgery to work and daily activity was discussed today Pain management: Postoperative pain regiment were discussed in great detail with the patient. The patient was also encouraged to aggressively elevate and ice postoperatively to help with swelling andpain control. The patient was in agreement with this plan. The patient will be prescribed IbuprofenTylenol Oxycodone for postoperative pain management. VTE Risk assessment: Risk of DVT/ PE were discussed in relation to immobilization, inactivity, injury, surgery, medication and personal risk factors. Signs and symptoms of a blood clot were discussedincluding action plan if the patient experiences these signs or symptoms. Methods of prevention and risk reduction were explained. Mechanical prophylaxis including ROM and mobilization is encouraged as much as possible. The patient???s risk for deep vein thrombosis was also assessed today. In regards to major risk factors they: Do not have personal history of DVT Do not have known active cancer Do not have known clotting disorder Do not have family history of DVT Pending foot surgery and current level of immobilization are risk factors. Measure taken to decrease their risk of deep vein thrombosis will consist of detailed education, as well as lower extremity range of motion. Chemical prophylaxis is not recommended based on patients history, procedure and postoperative plan. Planned procedure(s): right foot jayna bunionectomy surgery WB status: NWB x 2 weeks followed by progressive WB x 10 weeks in a below the knee boot. Pain medication: Ibuprofen Tylenol Oxycodone Mark Xavier DPM documented in this encounter Procedure Notes * Flora Cosby RN - 11/25/2024 9:08 AM EST Patient awake and alert, resting comfortably, denies any pain, tolerating po. Boot in place, ice applies, elevated, xray done. Script for knee scooter given from Dr. Xavier. Crutches dispensed. * Mark Xavier DPM - 11/25/2024 7:43 AM EST BUNIONECTOMY RIGHT (R) OPERATIVE NOTE Date: 11/25/2024 Location: [facility] OR Name: Anne Parr, : 1975, Diagnosis Pre-op Diagnosis * Hallux valgus (acquired), right foot [M20.11] Post-op Diagnosis * Hallux valgus (acquired), right foot [M20.11] Procedures BUNIONECTOMY RIGHT [address] - [place] CORRECTION HALLUX VALGUS WITH DISTAL METATARSAL OSTEOTOMY ANY METHOD Additional Procedures Indications: Anne Parr is an 49 y.o. female who is having surgery for HALLUX VALGUS RIGHT. That has failed conservative treatment modalities in clinic for management of the deformity. Surgeon(s) & Doper Operator(s) * Mark Xavier DPM - Primary Anesthesia: Anesthesia type not filed in the log. ASA: I Estimated Blood Loss: Minimal Drains: * No LDAs found * Specimen: Procedure Details: Patient was consented marked in preoperative area. All risks and benefits were discussed in detail adequate time was given for patient to ask questions and express concerns which were all appropriately answered. Patient was then appropriately consented by the anesthesia team for all risks and benefits for monitored anesthesia required for this case. Patient was then brought back to the operating room sedated after preoperative protocols were completed in concordance with [facility] protocol. Prophylactic antibiotics administered by anesthesia. Once patient was sedated she was placed in a supine position all bony prominences were appropriately padded and offloaded. Once cleared by anesthesia 20 cc of half percent Marcaine plain were injected into foot forefoot block. Extremity was then scrubbed prepped and draped. The extremity was elevated 60 degrees in the horizontal plane and Esmarch was utilized to exsanguinate all the tissues of the extremity a preplacedwell-padded pneumatic ankle tourniquet was then inflated. The extremity was delivered back to the operative table draping procedures were completed. Direct approach was then taken to expose the first metatarsophalangeal joint. Care was taken to identify and mobilize and retract medial and lateral to the incision all vital neurovascular structures. All venous tributaries were appropriately electrocoagulated tied off as necessary. Dissection was then carried into the first interspace conjoined tendon & fibular suspensetory sesamoid ligamentwas exposed and released completing lateral release for correction of HAV contractures. A planned long arm chevron osteotomy was then planned and made. Capital fragment was then translated to the center of the foot. Satisfactory reduction of intermetatarsal angulation was appreciated both intraoperatively and under fluoroscopy. Standard AO technique to screws headless Victoria 28 measuring 16 mm in diameter 3-0 were placed to fixate the capital fragment to the shaft of the first metatarsal. Reciprocal medial eminence was then removed. Area was copiously irrigated with normal saline and assess for closure. Capsule reconstruction was performed with 2-0 Vicryl. 7 stitches placed with 4-0 Vicrylskin was reapproximated with subdermal 4-0 Monocryl and 4-0 nylon. Tourniquet released right ankle 41 minutes 250 mmHg pressure. Postoperative bandaging consistent Betadine moistened Adaptic gauze 4 x 4 gauze ABD pads Winnie castpadding Matias were applied to the lower extremity. Patient was awoken from anesthesia transferred to the PACU all vital signs were stable normal capillary refill time is appreciated to all of the digits of the foot. Postoperative instructions and medications previously given to patient. Findings: Complications: None; patient tolerated the procedure well. Disposition: home self care Condition: stable * Sadia Alexander RN - 11/25/2024 6:46 AM EST Darnell [phone] documented in this encounter Plan of Treatment Upcoming Encounters Date Type Department Care Team (Late st Contact Info) Description 12/12/2024 10:00 AM EST Office Visit Orthopedic Surgery - [facility] [address] [phone] Mark Xavier DPM [address] [address] Scheduled Procedures Name Priority Associated Diagnoses Date/Ti me BUNIONECTOMY Acquired hallux valgus of right foot documented as of this encounter Procedures Procedure Name Priority Date/Time Associated Diagnosis Comments XR FOOT 3+ VIEWS RIGHT Routine 11/25/2024 9:00 AM EST [place] CORRECTION HALLUX VALGUS WITH DISTAL METATARSAL OSTEOTOMY ANY METHOD 11/25/2024 7:26 AM EST Hallux valgus (acquired), right foot Case Notes MINI C-ARM, Victoria 28 3-0 headless documented in this encounter Results * XR Foot 3+ Views Right (11/25/2024 9:00 AM EST) Anatomical Region Laterality Modality Lower Extremities, Foot Right [facility] 11/28/2024 10:1 4 AM EST Impressions 11/28/2024 10:15 AM EST Impression: Postop changes in the right foot consistent with bunionectomy. Telerad CHEY ([id number]) -------- FINAL REPORT -------- Dictated By: Flora Nichols Dictated Date: 11/28/2024 10:14 ET Assigned Physician: Flora Nichols Reviewed and Electronically Signed By: Flora Nichols Signed Date: 11/28/2024 10:15 ET Workstation ID: [id number] Transcribed By: Self Edit Transcribed Date: 11/28/2024 10:14 ET Narrative 11/28/2024 10:15 AM EST History: Postop bunionectomy right foot. Comparison: No previous imaging at this institution. Findings: Portable AP, oblique and lateral views of the right foot from 8:54 AM. Postop changes are seen in the first ray, consistent with bunionectomy. Two osteotomy screws are seen within the first metatarsal. There is overlying soft tissue swelling and bandaging. The remainder of the osseous structures are unremarkable. Procedure Note Flora Nichols MD - 11/28/2024 History: Postop bunionectomy right foot. Comparison: No previous imaging at this institution. Findings: Portable AP, oblique and lateral views of the right foot from 8:54 AM. Postop changes are seen in the first ray, consistent with bunionectomy.Two osteotomy screws are seen within the first metatarsal. There isoverlying soft tissue swelling and bandaging. The remainder of the osseousstructures are unremarkable. IMPRESSION: Impression: Postop changes in the right foot consistent with bunionectomy. Telebhavik GUERRIER ([id number]) -------- FINAL REPORT -------- Dictated By: Flora Nichols Dictated Date: 11/28/2024 10:14 ET Assigned Physician: Flora Nichols Reviewed and Electronically Signed By: Flora Nichols Signed Date: 11/28/2024 10:15 ET Workstation ID: [id number] Transcribed By: Self Edit Transcribed Date: 11/28/2024 10:14 ET Mark Xavier DPM IMG XR PROCEDURES Final R esult documented in this encounter Visit Diagnoses Diagnosis Hallux valgus (acquired), right foot- Primary Hallux valgus (acquired), right foot Bunion of right foot Bunion documented in this encounter Admitting Diagnoses Diagnosis Hallux valgus (acquired), right foot documented in this encounter Administered Medications Inactive Administered Medications - up to 3 most recent administrations Medication Order MAR Action Action Date Dose Rate Site fentaNYL (PF) (SUBLIMAZE) injection 50 mcg 50 mcg, intravenous, Every 5 min PRN, severe pain, Starting on Thu11/25/24 at 0841, For 5 doses, Recovery (only) HYDROmorphone (PF) injection 0.5 mg 0.5 mg, intravenous, Every 10 min PRN, moderate pain, Starting on Thu11/25/24 at 0841, For 4 doses, Recovery (only) ondansetron (PF) (ZOFRAN) injection 4 mg 4 mg, intravenous, Once as needed, nausea, vomiting, Starting on Thu11/25/24 at 0841, For 1 dose, Recovery (only) documented in this encounter Historical Medications * This list may reflect changes made after this encounter. magnesium oxide-Mg AA chelate (Magnesium, oxide/AA chelate,) 300 mg capsule 1 tablet by chew route 1 (one) time each day at the same time. added in this encounter Active and Recently Administered Medications Times are shown in EST. Scheduled Medication Order 11/23/2024 11/24/2024 11/25/2024 acetaminophen (TYLENOL) tablet 1,000 mg 1,000 mg, oral, Once, On Thu11/25/24 at 0900, For 1 dose, Recovery (only) 0900 (Canceled Entry - Provider: Automatic Discharge Provider - Comment: Automatically canceled at discontinue of medication order) ceFAZolin (ANCEF) 2 g in sterile water 20 mL IV syringe 2 g, intravenous, Administer over 3 Minutes, Once, On Thu11/25/24 at 0745, For 1 dose, Preprocedure, Indication: Prophylaxis-Surgical 0745 (Canceled Entry - Provider: Automatic Discharge Provider - Comment: Automatically canceled at discontinue of medication order) haloperidol lactate (HALDOL) injection 1 mg 1 mg, intravenous, Once, On Thu11/25/24 at 0900, For 1 dose, Recovery (only), May be ordered via either intramuscular or intravenous route. If ordered IV, maximum of 5 mg/minute. 0900 (Canceled Entry - Provider: Automatic Discharge Provider - Comment: Automatically canceled at discontinue of medication order) PRN Medication Order 11/23/2024 11/24/2024 11/25/2024 bupivacaine (PF) (MARCAINE) 0.5 % injection (CANCELED) As needed, Starting on Thu11/25/24 at 0748, Intraprocedure 0748 (Given - Provid er: Mark Xavier DPM) fentaNYL (PF) (SUBLIMAZE) injection 50 mcg 50 mcg, intravenous, Every 5 min PRN, severe pain, Starting on Thu11/25/24 at 0841, For 5 doses, Recovery (only) HYDROmorphone (PF) injection 0.5 mg 0.5 mg, intravenous, Every 10 min PRN, moderate pain, Starting on Thu11/25/24 at 0841, For 4 doses, Recovery (only) ondansetron (PF) (ZOFRAN) injection 4 mg 4 mg, intravenous, Once as needed, nausea, vomiting, Starting on Thu11/25/24 at 0841, For 1 dose, Recovery (only) documented in this encounter Orders Medications Ordered That Rafa ht Not Have Been Administered Count Last Ordered Date First Ordered Date acetaminophen (TYLENOL) tablet 1,000 mg 1 0 11/25/2024 bupivacaine (PF) (MARCAINE) 0.5 % injection 1 11/25/2024 ceFAZolin (ANCEF) 2 g in danny rile water 20 mL IV syringe 1 11/25/2024 fentaNYL (PF) (SUBLIMAZE) injection 50 mcg 1 11/25/2024 haloperidol lactate (HALDOL) injection 1 mg 1 11/25/2024 HYDROmorphone (PF) injection 0.5 mg 1 11/25 ondansetron (PF) (ZOFRAN) injection 4 mg 1 11/25/2024 Discharge Count Last Ordered Date First Orde red Date DISCHARGE PATIENT 1 11/25/2024 documented in this encounter Care Teams Centrifugal Wax Molder Relationship Specialty Start Date End Date [facility]ax[facility] [address] [facility] [address] [facility] D[facility]A: [facility] [place] PCP - General 01/18/24 documented as of this encounter
--- OUTSIDE RECORDS SUMMARY | 2024-12-07 07:44 | XMS_ITS | Encounter Summary ---
Author Organization [facility] Address [address] [place] [address] Care Team Providers Care Lead Security Officer Name Role Phone Olive Gaxiola MD Primary Care Provider [phone] Reason for Visit * Auth/Cert (Routine) Specialty Diagnoses / Procedures Referred By Contheather t Referred To Contact Diagnoses Hallux valgus (acquired), right foot HALLUX VALGUS RIGHT Procedures [place] CORRECTION HALLUX VALGUS WITH DISTAL METATARSAL OSTEOTOMY ANY METHOD BUNIONECTOMY RIGHT Mark Xavier DPM [address] [address] Phone: tel: fax: [facility] OR [address] [place] [phone] Phone: tel: Referral ID Status Reason Start Date Expiration Date Visits Re quested Visits Authorized [id number] 1 1 Encounter Details Date Type Department Care Team (Late st Contact Info) Description 11/25/2024 7:30 AM EST - 11/25/2024 8:45 AM EST Surgery [facility] OR [address] [place] [phone] Mark Xavier DPM [address] [address] BUNIONECTOMY RIGHT [80145 (CPT??)] Surgery Details Date/Time Status Location OR Service Patient Class Case Cl ass Case Type Trauma Case? 11/25/2024 7:30 AM Posted [facility] OR OR [address] [place] [address] Outpatient Surgery F - Elective Panel 1 Procedure LRB Anes Op Region Wound Class Comments BUNIONECTOMY RIGHT Right Monitor Anest hesia Care First Toe Class I/ Clean IV SEDATION Surgeon Surgeon Role Service Panel Mark Xavier, DPM Primary Podiatry 1 Case Notes MINI C-ARM, [place] 28 3-0 headless documented in this encounter Social History Tobacco Use Types Packs/Day Years [...] Sign Reading Time Taken Comments Blood Pressure 104/74 11/25/2024 8:35 AM EST Pulse 54 11/25/2024 8:35 AM EST Temperature 36 ??C (96.8 ??F) 11/25/2024 8:35 AM EST Respiratory Rate 12 11/25/2024 8:35 AM EST Oxygen Saturation 98% 11/25/2024 8:35 AM EST Inhaled Oxygen Concentration - - Weight 64.4 kg (142 lb) 11/04/2024 10:00 AM EST Height 162.6 cm (5' 4 ) 11/04/2024 10:00 AM EST Body Mass Index 24.37 11/04/2024 10:00 AM EST documented in this encounter Discharge Instructions * Attachments The following attachments cannot be sent through Care Everywhere. * Bunionectomy: Post-op ([place] Ze[place]) * Sedation ([place]ander) documented in this encounter Medications at Time [...] RIGHT (R) OPERATIVE NOTE Date: 11/25/2024 Location: [facility] OR Name: Anne Parr, : 1975, Diagnosis Pre-op Diagnosis * Hallux valgus (acquired), right foot [M20.11] Post-op Diagnosis * Hallux valgus (acquired), right foot [M20.11] Procedures BUNIONECTOMY RIGHT [address] - [place] CORRECTION HALLUX VALGUS WITH DISTAL METATARSAL OSTEOTOMY ANY METHOD Additional Procedures Indications: Anne Parr is an 49 y.o. female who is having surgery for HALLUX VALGUS RIGHT. That has failed conservative treatment modalities in clinic for management of the deformity. Surgeon(s) & Infrastructure Project Manager(s) * Mark Xavier DPM - Primary Anesthesia: [...] preoperative protocols were completed in concordance with [facility] protocol. Prophylactic antibiotics administered by anesthesia. Once [...] fluoroscopy. Standard AO technique to screws headless [place] 28 measuring 16 mm in diameter 3-0 [...] RN - 11/25/2024 6:46 AM EST Darnell [id number] documented in this encounter Plan of Treatment Upcoming Encounters Date Type Department Care Team (Late st Contact Info) Description 12/12/2024 10:00 AM EST Office Visit Orthopedic Surgery - [place] [address] [phone] Mark Xavier DPM [address] [address] Scheduled Procedures Name Priority Associated Diagnoses Date/Ti me BUNIONECTOMY Acquired hallux valgus of right foot documented as of this encounter Procedures Procedure Name Priority Date/Time Associated Diagnosis Comments XR FOOT 3+ VIEWS RIGHT Routine 11/25/2024 9:00 AM EST [place] CORRECTION HALLUX VALGUS WITH DISTAL METATARSAL OSTEOTOMY ANY METHOD 11/25/2024 7:26 AM EST Hallux valgus (acquired), right foot Case Notes MINI C-ARM, [place] 28 3-0 headless documented in this encounter Results * XR Foot 3+ Views Right (11/25/2024 9:00 AM EST) Anatomical Region Laterality Modality Lower Extremities, Foot Right [facility] 11/28/2024 10:1 4 AM EST Impressions 11/28/2024 10:15 AM EST Impression: Postop changes in the right foot consistent with bunionectomy. Telerad CHEY ([id number]) -------- FINAL REPORT -------- Dictated By: Flora Nichols Dictated Date: 11/28/2024 10:14 ET Assigned Physician: Flora Nichols Reviewed and Electronically Signed By: Flora Nichols Signed Date: 11/28/2024 10:15 ET Workstation ID: [id number] Transcribed By: Self Edit Transcribed Date: 11/28/2024 [...] right foot consistent with bunionectomy. Telebhavik GUERRIER ([id number]) -------- FINAL REPORT -------- Dictated By: Flora Nichols Dictated Date: 11/28/2024 10:14 ET Assigned Physician: Flora Nichols Reviewed and Electronically Signed By: Flora Nichols Signed Date: 11/28/2024 10:15 ET Workstation ID: [id number] Transcribed By: Self Edit Transcribed Date: 11/28/2024 10:14 ET Mark Xavier DPM IMG XR PROCEDURES Final R esult documented in this encounter Visit Diagnoses Diagnosis Hallux valgus (acquired), right foot- Primary Hallux valgus (acquired), right foot Bunion of right foot Bunion Hallux valgus (acquired), right foot documented in this encounter Admitting Diagnoses Diagnosis Hallux valgus (acquired), right foot documented in this encounter Administered Medications Inactive Administered Medications - up to 3 most recent administrations Medication Order MAR Action Action Date Dose Rate Site bupivacaine (PF) (MARCAINE) 0.5 % injection As needed, Starting on Thu11/25/24 at 0748, Intraprocedure Given 11/25/2024 7:48 AM EST 20 mL fentaNYL (PF) (SUBLIMAZE) injection 50 mcg 50 [...] (TYLENOL) tablet 1,000 mg 1 0 11/25/2024 ceFAZolin (ANCEF) 2 g in danny [...] 11/25/2024 documented in this encounter Care Teams Lead Security Officer Relationship Specialty Start Date End Date Olive Gaxiola MD [address] [facility] , [address] [facility] Physician Associ D/B/A: [facility] KARIE Law PCP - General 01/18/24 documented as of this encounter
--- OUTSIDE RECORDS SUMMARY | 2024-12-07 07:44 | XMS_ITS | Patient Health Record ---
Author Organization [facility] Address [address] [place] [phone] Care Team Providers Care Company Pilot Name Role Phone Olive Mensah Primary Care Provider UnavailHever Mata Jr Unavailable ALLERGIES No Known Allergies REASON FOR REFERRAL No Information MEDICATIONS Medication SIG (Take, Route, Frequency, Duration) Notes Start Date End Date Status Vitamin B 12 500 MCG 1 lozenge Orally On ce a day for 30 day(s) Active Ginkoba 40 MG as directed Orally Active MiraLax (colon prep) 17 GM/SCOOP mixed with Gatorade or Crystal Light Orally begin at 5:00 p.m. the day before the procedure for 1 day 03/12/2022 Active Zinc 10 MG as directed Orally Active Omeprazole 10 MG 1 capsule 30 minutes before morning meal Orally Once a day for 30 day(s) Active Magnesium 300 MG 1 capsule with a sabine l Orally Once a day for 30 day(s) Active Vitamin C 500 MG as directed Orally Active Vitamin A & D 57632-484 UNIT as directed Orally Active IMMUNIZATIONS Vaccine Route Administration Date Status Comme nts Influenza Unknown 03/12/2022 Refused SOCIAL HISTORY Tobacco Use: Social History Observation Description Date Details (start date - stop date) Never Smoker NA - NA Sex Assigned At : Social History Observation Description Sex Assigned At Unknown Tobacco Use/Smoking Question Answer Notes Patient is a nonsmoker Alcohol Screen Question Answer Notes Did you have a drink contain ing alcohol in the past year? Yes How often did you have a dri nk containing alcohol in the past year? 2 to 3 times a week (3 points) How many drinks did you have on a typical day when you were drinking in the past year? 3 or 4 drinks (1 point) How often did you have 6 or more drinks on one occasion in the past year? Never (0 point) Points 4 Interpretation Positive PROBLEMS Problem Type ICD Code Onset Dates Problem Status W/U Status Risk SNOMED Code Notes Problem Colon cancer screening (Z12.11) Active confirmed 776039157 Problem Irritable bowel syndrome with both constipation and diarrhea (K58.2) Active confirmed 35738910 Problem Long-term current use of high risk medication other than anticoagulant (Z79.899) Active confirmed [id number] PLAN OF TREATMENT Future Test Test Name Order Date COLONOSCOPY 03/12/2022 Insurance Providers Payer Name Payer Address Payer Phone Subscriber Number Group Number Insured Name Patient Relationship to Insured Coverage Start Date Coverage End Date [facility] [address] [address] [place], [place] [id number] BEN HAMILTON Self - patient is the insured MEDICAID OF [facility] [address] [place] [address] [id number] BEN HAMILTON Self - patient is the insured MEDICAL (GENERAL) HISTORY Medical History History ICD Code diabetes Gastroesophageal reflux disease Back pain Elevated cholesterol Decreased vitamin D level Surgical History Surgery Date(Month/Year) 19 years ago bunion Uterine polyps Skin cyst
--- OUTSIDE RECORDS SUMMARY | 2024-12-07 07:44 | XMS_ITS | Encounter Summary ---
Author Organization [facility] Address [address] [place] [address] Care Team Providers Care Researcher Name Role Phone Olive Gaxiola MD Primary Care Provider Reason for Visit * Reason Comments Pre-op Exam Right foot bunionect marco Encounter Details Date Type Department Care Team (Late st Contact Info) Description 11/23/2024 8:00 AM EST Consult Orthopedic Surgery - [place] [address] [phone] Mark Xavier DPM [address] [address] Acquired hallux valgus of right foot (Primary Dx) Social History Tobacco Use Types Packs/Day Years Used Date Smoking Tobacco: Never Assessed Comments Unknown Sex and Gender Information Value Date Recorded Sex Assigned at Female 11/25/2024 5:42 AM EST Legal Sex Female 5:01 AM EST Gender Identity Female 11/25/2024 5:42 AM EST Sexual Orientation Straight 11/25/2024 5: 42 AM EST documented as of this encounter Last Filed Vital Signs Vital Sign Reading Time Taken Comments Blood Pressure - - Pulse - - Temperature - - Respiratory Rate - - Oxygen Saturation - - Inhaled Oxygen Concentration - - Weight 64.4 kg (142 lb) 11/23/2024 8:07 AM EST Height 162.6 cm (5' 4.02 ) 11/23/2024 8:07 AM ES T Body Mass Index 24.36 11/23/2024 8:07 AM EST documented in this encounter Progress Notes * Mark Xavier DPM - 11/23/2024 8:00 AM [...] Mark Xavier DPM documented in this encounter Plan of Treatment Upcoming Encounters Date Type Department Care Team (Late st Contact Info) Description 12/12/2024 10:00 AM EST Office Visit Orthopedic Surgery - [address] [phone] Mark Xavier DPM [address] [address] Scheduled Procedures Name Priority Associated Diagnoses Date/Ti me BUNIONECTOMY Acquired hallux valgus of right foot documented as of this encounter Visit Diagnoses Diagnosis Acquired hallux valgus of right foot- Primary documented in this encounter Orders Case Request Count Last Ordered Date First Orde red Date CASE REQUEST OPERATING ROOM 1 11/23/2024 documented in this encounter Care Teams Researcher Relationship Specialty Start Date End Date Olive Gaxiola MD [address] [place] [address] , [address] [facility] Physician Associ D/B/A: [facility] KARIE Law PCP - General 01/18/24 documented as of this encounter
--- OUTSIDE RECORDS SUMMARY | 2024-12-07 07:44 | XMS_ITS | Clinical Summary ---
Author Organization 175 [facility] Address [address] [place] [address] Phone Care Team Providers Care Information Technology Security Manager Name Role Phone Olive Gaxiola MD Primary Care Provider [phone] Allergies No known active allergies Medications ascorbic acid, vitamin C, 500 mg capsule Take 500 mg by mouth daily. Active cholecalciferol (VITAMIN D-3) 25 mcg (1,000 unit) capsule Take 25 mcg by mouth daily. Active vitamin E, dl, acetate, 90 mg (200 unit) capsule Take 1 capsule (200 Units total) by mouth 1 (one) time each day. Active fluticasone propionate (FLONASE) 50 mcg/actuation nasal spray 2 Sprays by Each Nare route daily. Active magnesium oxide-Mg AA chelate (Magnesium, oxide/AA chelate,) 300 mg capsule 1 tablet by chew route 1 (one) time each day at the same time. Active ibuprofen (ADVIL,MOTRIN) 800 mg tablet Take 1 tablet (800 mg total) by mouth 3 (three) times a day. 90 each 11/25/2024 12/26/19 25 Active oxyCODONE (ROXICODONE) 5 mg immediate release tabletIndicatio ns:Hallux valgus (acquired), right foot,Bunion of right foot Take 1 tablet (5 mg total) by mouth every 4 (four) hours if needed for severe pain. Max Daily Amount: 30 mg 35 tablet 11/25/2024 Active acetaminophen (TYLENOL 8 HOUR) 650 mg 8 hr tablet Take 1 tablet (650 mg total) by mouth every 8 (eight) hours if needed for mild pain for up to 10 days. Do not crush, chew, or split. 30 tablet 11/25/2024 12/05/19 Active Problems Problem Noted Date Diagnosed Date Acquired hallux valgus of right foot 11/23/2024 Hallux valgus (acquired), right foot 09/08/2024 Bunion of right foot 07/06/2024 Encounters Date Type Department Care Team Description 11/25/2024 7:30 AM EST - 11/25/2024 8:45 AM EST Surgery [facility] OR [address] [place] [phone] Mark Xavier DPM BUNIONECTOMY RIGHT [[id number] (CPT??)] 11/25/2024 7:25 AM EST Anesthesia Event [facility] OR [address] [place] [phone] Wiley Aguilar MD 11/25/2024 5:43 AM EST - 11/25/2024 9:36 AM EST Hospital Encounter [facility] OR [address] [place] [phone] Mark Xavier DPM Hallux valgus (acquired), right foot (Primary Dx); Bunion of right foot Discharge Disposition: Home or Self Care 11/23/2024 8:00 AM EST Consult Orthopedic Surgery [facility] 250 175 [facility] [address] [place] [phone] Mark Xavier DPM Acquired hallux valgus of right foot (Primary Dx) 11/09/[address] [facility] 175 [facility] [address] [place] [phone] Edith Hirsch from Last 3 Months Immunizations Name Administration Dates Next Due Td, Unspecified 02/01/2004 Surgical History Surgery Date Site/Laterality Comments BUNIONECTOMY HYSTEROSCOPY DILATION AND CURETTAGE OF UTERUS Medical History Medical History Date Comments Irritable bowel syndrome Depression Anxiety Social History Tobacco Use Types Packs/Day Years [...] Orientation Straight 11/25/2024 5: 42 AM EST Obstetrics History Last Filed Vital Signs Vital Sign Reading [...] Mass Index 24.36 11/23/2024 8:07 AM EST Plan of Treatment Upcoming Encounters Date Type Department Care Team (Late st Contact Info) Description 12/12/2024 10:00 AM EST Office Visit Orthopedic Surgery - [place] [address] [phone] Mark Xavier, DPM [address] [address] Scheduled Procedures Name Priority Associated Diagnoses Date/Ti me BUNIONECTOMY Acquired hallux valgus of right foot Health Maintenance Due Date Last Done Comments Breast Cancer Screening 1975 Hepatitis B Vaccines (1 of 3 - 19+ 3-dose series) 02/27/1992 Cervical Cancer Screening: P ap Smear 1994 DTaP,Tdap,and Td Vaccines (3 - Td or Tdap) 07/20/2019 01/17/2019, 02/01/2004 Pneumococcal Vaccine: 50+ Years (1 of 1 - PCV) 2023 Zoster Vaccines (1 of 2) 2023 COVID-19 Vaccine ( - 2024-2 5 season) 2024 Influenza Vaccine (#1) 2024 Colorectal Cancer Screening: Colonoscopy 08/04/2024 Depression Screening 08/04/2024 HIV Screening 08/04/2024 Hepatitis C Screening 08/04/2024 Social Influencers of Health Screening 08/04/2024 Cholesterol Screening (Lipid Panel) 01/28/2028 01/27/2023, 02/02/2004 HIB Vaccines Aged Out No longer eligi ble based on patient's age to complete this topic HPV Vaccines Aged Out No longer eligi ble based on patient's age to complete this topic Hepatitis A Vaccines Aged Out No long er eligible based on patient's age to complete this topic IPV Vaccines Aged Out No longer eligi ble based on patient's age to complete this topic MMR Vaccines Aged Out No longer eligi ble based on patient's age to complete this topic Meningococcal ACWY Vaccine Aged Out N o longer eligible based on patient's age to complete this topic Meningococcal B Vacine Aged Out No lo nger eligible based on patient's age to complete this topic Pneumococcal Vaccine: Pediatrics (0 to 5 Years) and At-Risk Patients (6 to 64 Years) Aged Out No longer eligible b ased on patient's age to complete this topic RSV Immunization Patients Under 20 months Aged Out No longer eligible b ased on patient's age to complete this topic Varicella Vaccines Aged Out No longer eligible based on patient's age to complete this topic Medical Devices Implanted Type Area Enterprise Records Analyst Device Identifier Shelf Expiration Date Model / Serial / Lot Screw Marry Shrtthrd 3.0x16mm [facility] - [id number] Implanted:Qty: 2 on 11/25/2024 by Mark Xavier DPM at [facility] Internal and External Fixation Right: First Toe [employer] [id number] / NA / NA Procedures Procedure Name Priority Date/Time Associated Diagnosis Comments XR FOOT 3+ VIEWS RIGHT Routine 11/25/2024 9:00 AM EST [place] CORRECTION HALLUX VALGUS WITH DISTAL METATARSAL OSTEOTOMY ANY METHOD 11/25/2024 7:26 AM EST Hallux valgus (acquired), right foot Case Notes MINI C-ARM, [place] 28 3-0 headless LIPID PANEL Routine 01/27/2023 from Last 3 Months or Most Recently Relevant to Health Maintenance Results * XR Foot 3+ Views Right (11/25/2024 9:00 AM EST) Anatomical Region Laterality Modality Lower Extremities, Foot Right Radiogra [facility] Imaging 11/28/2024 10:1 4 AM EST Impressions 11/28/2024 10:15 AM EST Impression: Postop changes in the right foot consistent with bunionectomy. Telerad CHEY ([id number]) -------- FINAL REPORT -------- Dictated By: Flora Nichols Dictated Date: 11/28/2024 10:14 ET Assigned Physician: Flora Nichols Reviewed and Electronically Signed By: Flora Nichols Signed Date: 11/28/2024 10:15 ET Workstation ID: [id number] Transcribed By: Self Edit Transcribed Date: 11/28/2024 [...] right foot consistent with bunionectomy. Telerad CHEY ([id number]) -------- FINAL REPORT -------- Dictated By: Flora Nichols Dictated Date: 11/28/2024 10:14 ET Assigned Physician: Flora Nichols Reviewed and Electronically Signed By: Flroa Nichols Signed Date: 11/28/2024 10:15 ET Workstation ID: [id number] Transcribed By: Self Edit Transcribed Date: 11/28/2024 10:14 ET us Mark Xavier DPM IMG XR PROCEDURES Final R esult * Lipid panel (01/27/2023) LDL Cholesterol 129 mg/dL Blood Venous blood specimen / Unknown us Historical Provider LAB BLOOD ORDERABLES Anabel l Result from Last 3 Months or Most Recently Relevant to Health Maintenance Insurance HEALTH PLAN Care Teams Information Technology Security Manager Relationship Specialty Start Date End Date Olive Gaxiola MD [address] [place] [address] , [address] [facility] Physician Associ D/B/A: [facility] [place] PCP - General 01/18/24
--- OUTSIDE RECORDS SUMMARY | 2024-12-07 07:44 | XMS_ITS | Encounter Summary ---
Author Organization [facility] Address [address] [place] [address] Care Team Providers Care Flame Burner Name Role Phone Olive Gaxiola MD Primary Care Provider [phone] Reason for Visit * Auth/Cert (Routine) Specialty Diagnoses / Procedures Referred By Contac t Referred To Contact Diagnoses Hallux valgus (acquired), right foot HALLUX VALGUS RIGHT Procedures MS CORRECTION HALLUX VALGUS WITH DISTAL METATARSAL OSTEOTOMY ANY METHOD BUNIONECTOMY RIGHT Mark Xavier, DPM 175 [facility] [address] [place] [address] Phone: tel: fax: [facility] Main OR [address] [place] [address] Phone: tel: Referral ID Status Reason Start Date Expiration Date Visits Re quested Visits Authorized [id number] 1 1 Encounter Details Date Type Department Care Team (Late st Contact Info) Description 11/25/2024 7:25 AM EST Anesthesia Event [facility] Main OR [address] [place] [address] Wiley Aguilar MD [address] [place] [address] Anesthesia Record Procedure Summary Procedure Name Responsible Anesthesiologist Anesthesia Start Time Anesthesia Stop Time BUNIONECTOMY RIGHT (Right: First Toe) Wiley Aguilar MD 11/25/24 0725 11/25/24 0835 Events Date Time Event Comment 11/25/2024 0710 0725 An Start 0725 An Start Data The patient wa s reevaluated immediately before moderate or deep sedation use and before anesthesia induction. 0725 Anesthesia Ready 0726 In Room 0742 Bernabe Time out done 0743 Proc Start 0743 An Tourn Inflated 0825 An Tourn Deflated 0827 Proc Fin 0830 Transport to PACU/ICU Patien t reassessed and ready for transfer, airway stable. Patient transport to designated recovery area. {Transport to PACU/ICU:[id number]} 0831 Out of Room 0833 Handoff to RN I completed my handoff to the receiving nurse during which we: 1. Identified the patient 2. Identified the responsible provider 3. Reviewed the pertinent medical history 4. Discussed the surgical course 5. Reviewed intra-op anesthesia management and issues during anesthesia 6. Set expectations for post-procedure period 7. Allowed opportunity for questions and acknowledgement of understanding. 0835 An Stop 0835 an stop data Meds Name Total fentaNYL 0.05 mg/mL 100 mcg midazolam 1 mg/mL 2 mg ondansetron 2 mg/mL 4 mg ketorolac 30 mg 30 mg propofol (DIPRIVAN) infusion 10 mg/mL 30 5.4 mg lidocaine PF (XYLOCAINE-MPF) local injec tion 2% 100 mg dexamethasone (DECADRON) injection 4 mg/ mL 4 mg ceFAZolin (ANCEF) 2 g in sterile water 2 0 mL IV syringe 0 g ceFAZolin (ANCEF) IV syringe 2 g/20 mL 2 g lactated Ringer's infusion 900 mL * Agents Name O2 N2O Air * Blood No blood administrations on file. Lines, Drains, and Airways Type Details Placement Removal Wound Foot; Anterior, Right 11/25/24 08 by Peripheral IV Placement Date: 11/25/24; Placement Time: 654; Catheter Size: 20 G; Orientation: Left; Location: Antecubital; Insertion Attempts: 1; Patient Tolerance: Tolerated well; Removal Date: 11/25/24; Removal Time: 92011/25/24654 by Sadia Alexander RN 11/25/24920 by Flora Cosby RN documented in this encounter Social History Tobacco Use Types Packs/Day Years Used Date Smoking Tobacco: Former Cigarettes Smokeless Tobacco: Former Alcohol Use Standard Drinks/Week Comments Yes 4 [...] AM EST documented as of this encounter Progress Notes * Wilfrido Norris CRNA - 11/25/2024 8:35 AM EST Patient: Anne Parr Procedure Summary Date: 11/25/24 Room / Location: [facility] Anesthesia Start: 724 Anesthesia Stop: 834 Procedure: BUNIONECTOMY RIGHT (Right: First Toe) Diagnosis: Hallux valgus (acquired), right foot (HALLUX VALGUS RIGHT) Surgeons: Mark Xavier DPM Responsible Provider: Wiley Aguilar MD Anesthesia Type: MAC ASA Status: 1 Anesthesia Plan: MAC Last Vitals: Vitals Value Taken Time BP 104/74 11/25/24 0835 Temp 97.3 11/25/24 0835 Pulse 54 11/25/24 0835 Resp 12 11/25/24 0835 SpO2 98 % 11/25/24 0835 Pain Score: 0 - No pain Anesthesia Post Evaluation Patient location during evaluation: PACU Patient participation: complete - patient participated Level of consciousness: awake Pain score: 0 Pain management: adequate Airway patency: patent Anesthetic complications: no Cardiovascular status: acceptable Respiratory status: acceptable Hydration status: acceptable Nausea: No Vomiting: No There were no known notable events for this encounter. * Wiley Aguilar MD - 11/25/2024 7:08 AM EST Relevant Problems No relevant active problems Clinical information reviewed: Tobacco Allergies Meds Med Hx Surg Hx OB Status Fam Hx Soc Hx Anesthesia Plan ASA 1 Anesthesia Plan: MAC Anesthesia Considerations MAC Anesthesia Risks Discussed nausea Plan Factors Patient is not a current smoker Induction method: N/A Anesthetic plan and risks discussed with patient. Anesthesia Evaluation Airway Mallampati: I Thyromental distance: > 3 finger breadths Neck ROM: full Dental - normal exam Pulmonary - negative ROS and normal exam Cardiovascular - negative ROS and normal exam Neuro/Psych - negative ROS (+) psychiatric history GI/Hepatic/Renal - negative ROS Endo/Other - negative ROS Abdominal PONV RISK SCORE: 2 Vitals: 11/04/24 1000 11/25/24 0557 BP: 114/76 Pulse: 50 Resp: 16 Temp: 36.3 ??C (97.3 ??F) SpO2: 100% Weight: 64.4 kg (142 lb) Height: 1.626 m (64 ) SpO2 Readings from Last 1 Encounters: 11/25/24 100% No results found for: WBC , RBC , HGB , HCT , PLT , MCV No Known Allergies STOP BANG: No data recorded NPO Status: Time of Last Liquid: 2300 Time of Last Solid: 2299 documented in this encounter Plan of Treatment Upcoming Encounters Date Type Department Care Team (Late st Contact Info) Description 12/12/2024 10:00 AM EST Office Visit Orthopedic Surgery - [place] [address] [address] Mark Xavier, DPM [address] [address] Scheduled Procedures Name Priority Associated Diagnoses Date/Ti me BUNIONECTOMY Acquired hallux valgus of right foot documented as of this encounter Visit Diagnoses Not on filedocumented in this encounter Administered Medications Inactive Administered Medications - up to 3 most recent administrations Medication Order MAR Action Action Date Dose Rate Site ceFAZolin (ANCEF) 2 gram/20 mL IV syringe intravenous, Administer over 3 Minutes, As needed, Starting on Thu11/25/24 at 0738, Anesthesia Intraprocedure Given 11/25/2024 7:38 AM EST 2 g dexAMETHasone (DECADRON) injection intravenous, As needed, Starting on Thu11/25/24 at 0741, Anesthesia Intraprocedure Given 11/25/2024 7:41 AM EST 4 mg fentaNYL (PF) (SUBLIMAZE) injection intravenous, As needed, Starting on Thu11/25/24 at 0732, Anesthesia Intraprocedure Given 11/25/2024 8:07 AM EST 25 mcg Given 11/25/2024 7:51 AM EST 25 mcg Given 11/25/2024 7:32 AM EST 50 mcg ketorolac (TORADOL) injection intravenous, As needed, Starting on Thu11/25/24 at 0807, Anesthesia Intraprocedure Given 11/25/2024 8:07 AM EST 30 mg lactated Ringer's infusion intravenous, Continuous PRN, Starting on Thu11/25/24 at 0737, Anesthesia Intraprocedure New Bag 11/25/2024 8:13 AM EST 125 m L/hr New Bag 11/25/2024 7:37 AM EST 125 mL/hr lidocaine (PF) (XYLOCAINE-MPF) 2 % injection injection, As needed, Starting on Thu11/25/24 at 0731, Anesthesia Intraprocedure Given 11/25/2024 7:31 AM EST 100 mg midazolam (VERSED) injection intravenous, As needed, Starting on Thu11/25/24 at 0723, Anesthesia Intraprocedure Given 11/25/2024 7:23 AM EST 2 mg ondansetron (PF) (ZOFRAN) injection intravenous, As needed, Starting on Thu11/25/24 at 0741, Anesthesia Intraprocedure Given 11/25/2024 7:41 AM EST 4 mg propofoL (DIPRIVAN) infusion 10 mg/mL intravenous, Continuous PRN, Starting on Thu11/25/24 at 0738, Anesthesia Intraprocedure New Bag 11/25/2024 7:38 AM EST 100 mcg/kg/min 38.64 mL/hr Given 11/25/2024 7:29 AM EST 80 mg documented in this encounter Care Teams Flame Burner Relationship Specialty Start Date End Date Olive Gaxiola MD [address] [place] [address] , [facility] [address] [facility] Physician Associ D/B/A: [facility] KARIE Law PCP - General 01/18/24 documented as of this encounter
--- OUTSIDE RECORDS SUMMARY | 2024-12-07 07:44 | XMS_ITS | Encounter Summary ---
Author Organization [facility] Address [address] [place] [address] Care Team Providers Care Pulmonary Fellow Name Role Phone Olive Gaxiola MD Primary Care Provider [phone] Encounter Details Date Type Department Care Team (Late st Contact Info) Description 11/09/2024 Telephone Orthopedic Surgery [facility] 175 [facility] [address] [place] [phone] Edith Hirsch Social History Tobacco Use Types Packs/Day Years Used Date Smoking Tobacco: Never Assessed Comments Unknown Sex and Gender Information Value Date Recorded Sex Assigned at Female 11/25/2024 5:42 AM EST Legal Sex Female 5:01 AM EST Gender Identity Female 11/25/2024 5:42 AM EST Sexual Orientation Straight 11/25/2024 5: 42 AM EST documented as of this encounter Progress Notes * Edith Hirsch - 11/09/2024 3:03 PM EST Spoke with PCP office, patient was seen on 10/31/2024 for a preop visit. They are going to fax that note over to my attention today. documented in this encounter Plan of Treatment Upcoming Encounters Date Type Department Care Team (Late st Contact Info) Description 12/12/2024 10:00 AM EST Office Visit Orthopedic Surgery [facility] 250 175 [facility] [address] [place] [phone] Mark Xavier, DPM 175 [facility] [address] [place], [place] [phone] Scheduled Procedures Name Priority Associated Diagnoses Date/Ti me BUNIONECTOMY Acquired hallux valgus of right foot documented as of this encounter Visit Diagnoses Not on filedocumented in this encounter Care Teams Pulmonary Fellow Relationship Specialty Start Date End Date Olive Gaxiola MD [address] [place] [address] , [address] [facility] Physician Associ D/B/A: [facility] [place], [place] PCP - General 01/18/24 documented as of this encounter
== END 2024-12-07 08:14 | disposition home or self-care (01) ==
LOC: HO.HWS 07:42
PROVIDERS: PCP Internal Medicine; Visit Provider Advanced Practice Midwife
DX: R23.2 Flushing (principal)
CPT/HCPCS: 99213

== ENCOUNTER → 2024-12-07 07:42 | Outpatient (BNVA) | payer OTHER, SELFPAY | PROVIDERS: PCP Internal Medicine; Visit Provider Advanced Practice Midwife | DX: R23.2 Flushing (principal) | CPT/HCPCS: 99212 ==

== ENCOUNTER 2024-12-13 08:16 | Outpatient (REF) | payer OTHER, SELFPAY ==
--- OUTSIDE RECORDS SUMMARY | 2024-12-13 08:25 | XMS_ITS | Patient Health Record ---
Author Organization [facility] Address [address] [place] [address] Care Team Providers Care Senior Risk Manager Name Role Phone Olive Mensah Primary Care Provider UnavailHever Mata Jr Unavailable [phone] ALLERGIES No Known Allergies REASON FOR REFERRAL [...] directed Orally Active Vitamin A & D 77757-286 UNIT as directed Orally Active IMMUNIZATIONS Vaccine [...] Problem Colon cancer screening (Z12.11) Active confirmed 856685459 Problem Irritable bowel syndrome with both constipation and diarrhea (K58.2) Active confirmed 81028700 Problem Long-term current use of high risk medication other than anticoagulant (Z79.899) Active confirmed [id number] PLAN OF TREATMENT Future Test Test Name Order Date COLONOSCOPY 03/12/2022 Insurance Providers Payer Name Payer Address Payer Phone Subscriber Number Group Number Insured Name Patient Relationship to Insured Coverage Start Date Coverage End Date [facility] [address] [address] [place], [place] [id number] BEN HAMILTON Self - patient is the insured MEDICAID OF [employer] [facility] [address] [place] [address] [id number] BEN HAMILTON Self - patient is the insured MEDICAL (GENERAL) HISTORY Medical History History ICD Code diabetes Gastroesophageal reflux disease Back pain Elevated cholesterol Decreased vitamin D level Surgical History Surgery Date(Month/Year) 19 years ago bunion Uterine polyps Skin cyst
--- OUTSIDE RECORDS SUMMARY | 2024-12-13 08:25 | XMS_ITS | Encounter Summary ---
Author [facility] Address [address] [place] [address] Care Team Providers Care Svp Programmatic Tv Name Role Phone Olive Gaxiola MD Primary Care Provider [phone] Reason for Visit * Reason Comments Post-op Right foot bunionect marco Encounter Details Date Type Department Care Team (Late st Contact Info) Description 12/12/2024 10:00 AM EST Office Visit Orthopedic Surgery - [place] [address] [phone] Mark Xavier, DPM [address] [address] Post-operative state (Primary Dx); Acquired hallux valgus of right foot Social History Tobacco Use Types Packs/Day Years [...] - - Weight 64.4 kg (142 lb) 12/12/2024 10:01 AM EST Height 162.6 cm (5' 4.02 ) 12/12/2024 10:[address] Body Mass Index 24.36 12/12/2024 10:01 AM EST documented in this encounter Progress Notes * Mark Xavier DPM - 12/12/2024 10:00 AM EST S Patient status post surgery on 11/25/2024 doing very well at this time states the right foot pain iswell-controlled she has been compliant with protected weightbearing as instructed denies other pedal complaints ROS: GENERAL: Pt denies nausea, fever, vomiting, [...] degrees, plantar flexion WNL. No muscle atrophy. DERMATOLOGICAL:.Sutures are intact BIOMECHANICS: STJ ROM wnl, MTJ ROM wnl, 1st MPJ ROM resolved bunion deformity right great toe IMAGING: X-rays consistent with mild bunion deformity slight increase in intermetatarsal angulation slight increase in hallux adductovalgus angulation IMPRESSION: 1. Post-operative state XR Foot 3+ Views Right 2. Acquired hallux valgus of right foot PLAN: Pt was seen and examined, history reviewed. Continue protective appearing to right foot in postop shoe Sutures removed return to normal bathing habits Follow-up in 2 months Mark Xavier DPM documented in this encounter Plan of Treatment Upcoming Encounters Date Type Department Care Team (Late st Contact Info) Description 02/09/2025 10:00 AM EDT Office Visit Orthopedic Surgery - [place] [address] [phone] Mark Xavier DPM [address] [address] Scheduled Procedures Name Priority Associated Diagnoses Date/Ti me BUNIONECTOMY Acquired hallux valgus of right foot documented as of this encounter Results * XR Foot 3+ Views Right (12/12/2024 10:07 AM EST) Anatomical Region Laterality Modality Lower Extremities, Foot Right Computed Radiography Narrative 12/12/2024 12:11 PM EST Right foot ??3 views No fracture. No radiopaque foreign Stable post op changes hardware intact reduction deformity maintained Mark Xavier DPM IMG XR PROCEDURES Final R esult documented in this encounter Visit Diagnoses Diagnosis Post-operative state- Primary Other postprocedural status Acquired hallux valgus of right foot documented in this encounter Care Teams Svp Programmatic Tv Relationship Specialty Start Date End Date Olive Gaxiola MD 2 [facility] , [address] [facility] Physician Associ D/B/A: [facility] KARIE Law PCP - General 01/18/24 documented as of this encounter
--- OUTSIDE RECORDS SUMMARY | 2024-12-13 08:26 | XMS_ITS | Encounter Summary ---
Author Organization [facility] Address [address] [place] [address] Care Team Providers Care Slag Motor Operator Name Role Phone Olive Gaxiola MD Primary Care Provider [phone] Reason for Visit * Auth/Cert (Routine) Specialty Diagnoses / Procedures Referred By Contac t Referred To Contact Diagnoses Hallux valgus (acquired), right foot HALLUX VALGUS RIGHT Procedures DE CORRECTION HALLUX VALGUS WITH DISTAL METATARSAL OSTEOTOMY ANY METHOD BUNIONECTOMY RIGHT Mark Xavier, DPM 175 [facility] [address] [place] [address] Phone: tel: fax: [facility] Main OR [address] [place] [address] Phone: tel: Referral ID Status Reason Start Date Expiration Date Visits Re quested Visits Authorized [id number] 1 1 Encounter Details Date Type Department Care Team (Late st Contact Info) Description 11/25/2024 7:25 AM EST Anesthesia Event [facility] Main OR [address] [place] [address] Wiley Aguilar MD [address] [place] [address] Anesthesia Record Procedure Summary Procedure Name Responsible [...] transport to designated recovery area. {Transport to PACU/ICU:[id number]} 0831 Out of Room 0833 Handoff to [...] Procedure Summary Date: 11/25/24 Room / [facility] Anesthesia Start: 724 Anesthesia Stop: 834 [...] AM EDT Office Visit Orthopedic Surgery - [place] [address] [address] Mark Xavier, DPM [address] [address] Scheduled Procedures Name Priority Associated Diagnoses Date/Ti [...] mg documented in this encounter Care Teams Slag Motor Operator Relationship Specialty Start Date End Date Olive Gaxiola MD [address] [place] [address] , [address] [facility] Physician Associ D/B/A: [facility] KARIE Law PCP - General 01/18/24 documented as of this encounter
--- OUTSIDE RECORDS SUMMARY | 2024-12-13 08:26 | XMS_ITS | Encounter Summary ---
[facility] Address [address] [place] [address] Care Team Providers Care Tobacco Drier Operator Name Role Phone Olive Gaxiola MD Primary Care Provider [phone] Reason for Visit * Auth/Cert (Routine) Specialty Diagnoses / Procedures Referred By Contheather t Referred To Contact Diagnoses Hallux valgus (acquired), right foot HALLUX VALGUS RIGHT Procedures RI CORRECTION HALLUX VALGUS WITH DISTAL METATARSAL OSTEOTOMY ANY METHOD BUNIONECTOMY RIGHT Mark Xavier DPM [address] [address] Phone: tel: fax: [facility] OR [address] [place] [address] Phone: tel: Referral ID Status Reason Start Date Expiration Date Visits Re quested Visits Authorized [id number] 1 1 Encounter Details Date Type Department Care Team (Late st Contact Info) Description 11/25/2024 7:30 AM EST - 11/25/2024 8:45 AM EST Surgery [facility] OR [address] [place] [phone] Mark Xavier DPM [address] [address] BUNIONECTOMY RIGHT [98515 (CPT??)] Surgery Details Date/Time Status Location OR Service Patient Class Case Cl ass Case Type Trauma Case? 11/25/2024 7:30 AM Posted [facility] OR OR [address] [place] [address] Outpatient Surgery F - Elective Panel 1 Procedure LRB Anes Op Region Wound Class Comments BUNIONECTOMY RIGHT Right Monitor Anest hesia Care First Toe Class I/ Clean IV SEDATION Surgeon Surgeon Role Service Panel Mark Xavier, DPM Primary Podiatry 1 Case Notes [facility], [place] 28 3-0 headless documented in this encounter [...] sent through Care Everywhere. * Bunionectomy: Post-op (Belgian) * Sedation (Belgian) documented in this encounter Medications at Time [...] RIGHT (R) OPERATIVE NOTE Date: 11/25/2024 Location: [facility] OR Name: Anne Parr, : 1975, Diagnosis Pre-op Diagnosis * Hallux valgus (acquired), right foot [M20.11] Post-op Diagnosis * Hallux valgus (acquired), right foot [M20.11] Procedures BUNIONECTOMY RIGHT [address] - RI CORRECTION HALLUX VALGUS WITH DISTAL METATARSAL OSTEOTOMY ANY METHOD Additional Procedures Indications: Anne Parr is an 49 y.o. female who is having surgery for HALLUX VALGUS RIGHT. That has failed conservative treatment modalities in clinic for management of the deformity. Surgeon(s) & Construction Plumber(s) * Mark Xavier DPM - Primary Anesthesia: [...] preoperative protocols were completed in concordance with [facility] protocol. Prophylactic antibiotics administered by anesthesia. Once [...] fluoroscopy. Standard AO technique to screws headless [place] 28 measuring 16 mm in diameter 3-0 [...] RN - 11/25/2024 6:46 AM EST Darnell [id number] documented in this encounter Plan of Treatment Upcoming Encounters Date Type Department Care Team (Late st Contact Info) Description 02/09/2025 10:00 AM EDT Office Visit Orthopedic Surgery - [place] [address] [phone] Mark Xavier DPM [address] [address] Scheduled Procedures Name Priority Associated Diagnoses Date/Ti me BUNIONECTOMY Acquired hallux valgus of right foot documented as of this encounter Procedures Procedure Name Priority Date/Time Associated Diagnosis Comments XR FOOT 3+ VIEWS RIGHT Routine 11/25/2024 9:00 AM EST RI CORRECTION HALLUX VALGUS WITH DISTAL METATARSAL OSTEOTOMY ANY METHOD 11/25/2024 7:26 AM EST Hallux valgus (acquired), right foot Case Notes [facility], [place] 28 3-0 headless documented in this encounter Results * XR Foot 3+ Views Right (11/25/2024 9:00 AM EST) Anatomical Region Laterality Modality Lower Extremities, Foot Right [facility] 11/28/2024 10:1 4 AM EST Impressions 11/28/2024 10:15 AM EST Impression: Postop changes in the right foot consistent with bunionectomy. Telerad CHEY ([id number]) -------- FINAL REPORT -------- Dictated By: Flora Nichols Dictated Date: 11/28/2024 10:14 ET Assigned Physician: Flora Nichols Reviewed and Electronically Signed By: Flora Nichols Signed Date: 11/28/2024 10:15 ET Workstation ID: [id number] Transcribed By: Self Edit Transcribed Date: 11/28/2024 [...] right foot consistent with bunionectomy. Telebhavik GUERRIER ([id number]) -------- FINAL REPORT -------- Dictated By: Flora Nichols Dictated Date: 11/28/2024 10:14 ET Assigned Physician: Flora Nichols Reviewed and Electronically Signed By: Flora Nichols Signed Date: 11/28/2024 10:15 ET Workstation ID: [id number] Transcribed By: Self Edit Transcribed Date: 11/28/2024 [...] 11/25/2024 documented in this encounter Care Teams Tobacco Drier Operator Relationship Specialty Start Date End Date Olive Gaxiola MD 2 [facility] , [address] [facility] Physician Associ D/B/A: [facility] KARIE Law PCP - General 01/18/24 documented as of this encounter
--- OUTSIDE RECORDS SUMMARY | 2024-12-13 08:26 | XMS_ITS | Clinical Summary ---
Author Organization [facility] Address [address] [place] [address] Phone Care Team Providers Care Water Softener Service Supervisor Name Role Phone Olive Gaxiola MD Primary Care Provider [phone] Allergies No known active allergies Medications ascorbic [...] chew, or split. 30 tablet 11/25/2024 12/05/19 25 Active Problems Problem Noted Date Diagnosed Date Acquired hallux valgus of right foot 11/23/2024 Hallux valgus (acquired), right foot 09/08/2024 Bunion of right foot 07/06/2024 Encounters Date Type Department Care Team Description 12/12/2024 10:00 AM EST Office Visit Orthopedic Surgery [facility] [address] [phone] Mark Xavier DPM Post-operative state (Primary Dx); Acquired hallux valgus of right foot 11/25/2024 7:30 AM EST - 11/25/2024 8:45 AM EST Surgery [facility] OR [address] [place] [phone] Mark Xavier DPM BUNIONECTOMY RIGHT [[id number] (CPT??)] 11/25/2024 7:25 AM EST Anesthesia Event [facility] OR [address] [place] [phone] Wiley Aguilar MD 11/25/2024 5:43 AM EST - 11/25/2024 9:36 AM EST Hospital Encounter [facility] OR [address] [place] [phone] Mark Xavier DPM Hallux valgus (acquired), right foot (Primary Dx); Bunion of right foot Discharge Disposition: Home or Self Care 11/23/2024 8:00 AM EST Consult Orthopedic Surgery [facility] [address] [phone] Mark Xavier DPM Acquired hallux valgus of right foot (Primary Dx) 11/09/2024 Telephone Orthopedic Surgery [facility] 175 [facility] [address] [place] [phone] Edith Hirshc from Last 3 Months Immunizations Name Administration [...] Mass Index 24.36 12/12/2024 10:01 AM EST Plan of Treatment Upcoming Encounters Date Type Department Care Team (Late st Contact Info) Description 02/09/2025 10:00 AM EDT Office Visit Orthopedic Surgery - [place] [address] [phone] Mark Xavier, DPM [address] [address] Scheduled Procedures Name Priority Associated Diagnoses Date/Ti me BUNIONECTOMY Acquired hallux valgus of right foot Health Maintenance Due Date Last Done Comments Breast Cancer Screening 1975 Hepatitis B Vaccines (1 of 3 - 19+ 3-dose series) 02/27/1992 Cervical Cancer Screening: P ap Smear 1994 Pneumococcal Vaccine: 50+ Years (1 of 1 - PCV) 2023 Zoster Vaccines (1 of 2) 2023 COVID-19 Vaccine (1 - 2023-2 5 season) 2024 Influenza Vaccine (#1) 2024 Colorectal Cancer Screening: Colonoscopy 08/04/2024 Depression Screening 08/04/2024 HIV Screening 08/04/2024 Hepatitis C Screening 08/04/2024 Social Influencers of Health Screening 08/04/2024 Cholesterol Screening (Lipid Panel) 01/28/2028 01/27/2023, 02/02/2004 DTaP,Tdap,and Td Vaccines (3 - Td or Tdap) 01/17/2029 01/17/2019, 02/01/2004 HIB Vaccines Aged Out No longer eligi [...] this topic Medical Devices Implanted Type Area Pipeline Construction Inspector Device Identifier Shelf Expiration Date Model / Serial / Lot Screw Marry Shrtthrd 3.0x16mm [facility] - [id number] Implanted:Qty: 2 on 11/25/2024 by Mark Xavier DPM at [facility] Internal and External Fixation Right: First Toe [employer] [id number] / NA / NA Procedures Procedure Name Priority Date/Time Associated Diagnosis Comments XR FOOT 3+ VIEWS RIGHT Routine 12/12/2024 10:07 AM EST Post-operative state XR FOOT 3+ VIEWS RIGHT Routine 11/25/2024 9:00 AM EST IA CORRECTION HALLUX VALGUS WITH DISTAL METATARSAL OSTEOTOMY ANY METHOD 11/25/2024 7:26 AM EST Hallux valgus (acquired), right foot Case Notes MINI C-ARM, [place] 28 3-0 headless LIPID PANEL Routine 01/27/2023 from Last 3 Months or Most Recently Relevant to Health Maintenance Results * XR Foot 3+ Views Right (12/12/2024 10:07 AM EST) Only the most recent of2 resultswithin the time period is included. Anatomical Region Laterality Modality Lower Extremities, Foot Right Computed Radiography Narrative 12/12/2024 12:11 PM EST Right foot ??3 views No fracture. No radiopaque foreign Stable post op changes hardware intact reduction deformity maintained Mark Xavier DPArgenis IMG XR PROCEDURES Final R esult * Lipid panel (01/27/2023) LDL Cholesterol 129 mg/dL Blood Venous blood specimen / Unknown Historical Provider LAB BLOOD ORDERABLES Anabel l Result from Last 3 Months or Most Recently Relevant to Health Maintenance Insurance [facility] Care Teams Water Softener Service Supervisor Relationship Specialty Start Date End Date Olive Gaxiola MD 2 [facility] , [address] [facility] D/B/A: [facility] KARIE Law PCP - General 01/18/24
--- OUTSIDE RECORDS SUMMARY | 2024-12-13 08:26 | XMS_ITS | Encounter Summary ---
Author Organization [facility] Address [address] [place] [address] Care Team Providers Care Marketing Engineer Name Role Phone Olive Gaxiola MD Primary Care Provider [phone] Reason for Visit * Reason Comments Pre-op Exam Right foot bunionect marco Encounter Details Date Type Department Care Team (Late st Contact Info) Description 11/23/2024 8:00 AM EST Consult Orthopedic Surgery - [place] [phone] [phone] Mark Xavier DPM [address] [phone] Acquired hallux valgus of right foot (Primary [...] AM EDT Office Visit [place]opedic Surgery - [place] [address] [phone] Mark Xavier DPM [address] [address] Scheduled Procedures Name Priority Associated Diagnoses Date/Ti me BUNIONECTOMY Acquired hallux valgus of right foot documented as of this encounter Visit Diagnoses Diagnosis Acquired hallux valgus of right foot- Primary documented in this encounter Orders Case Request Count Last Ordered Date First Orde red Date CASE REQUEST OPERATING ROOM 1 11/23/2024 documented in this encounter Care Teams Marketing Engineer Relationship Specialty Start Date End Date Olive Gaxiola MD [address] [place] [address] , [address] [facility] D/B/A: [facility] KARIE Law PCP - General 01/18/24 documented as of this encounter
--- OUTSIDE RECORDS SUMMARY | 2024-12-13 08:27 | XMS_ITS | Encounter Summary ---
Author Organization [employer] Address [address] [place] [address] Care Team Providers Care Kosher Butcher Name Role Phone Olive Gaxiola MD Primary Care Provider [phone] Reason for Visit * Auth/Cert (Routine) Specialty Diagnoses / Procedures Referred By Contac t Referred To Contact Diagnoses Hallux valgus (acquired), right foot HALLUX VALGUS RIGHT Procedures SD CORRECTION HALLUX VALGUS WITH DISTAL METATARSAL OSTEOTOMY ANY METHOD BUNIONECTOMY RIGHT Mark Xavier DPM [address] [address] Phone: tel: fax: [facility] OR [address] [place] [phone] Phone: tel: Referral ID Status Reason Start Date Expiration Date Visits Re quested Visits Authorized [id number] 1 1 Encounter Details Date Type Department Care Team (Late st Contact Info) Description 11/25/2024 5:43 AM EST - 11/25/2024 9:36 AM EST Hospital Encounter [facility] OR [address] [place] [phone] Mark Xavier DPM [address] [address] Hallux valgus (acquired), right foot (Primary Dx); [...] RIGHT (R) OPERATIVE NOTE Date: 11/25/2024 Location: [facility] OR Name: Anne Parr, : 1975, Diagnosis Pre-op Diagnosis * Hallux valgus (acquired), right foot [M20.11] Post-op Diagnosis * Hallux valgus (acquired), right foot [M20.11] Procedures BUNIONECTOMY RIGHT [address] - SD CORRECTION HALLUX VALGUS WITH DISTAL METATARSAL OSTEOTOMY ANY METHOD Additional Procedures Indications: Anne Parr is an 49 y.o. female who is having surgery for HALLUX VALGUS RIGHT. That has failed conservative treatment modalities in clinic for management of the deformity. Surgeon(s) & Funeral Home Attendant(s) * Mark Xavier DPM - Primary Anesthesia: [...] preoperative protocols were completed in concordance with [facility] protocol. Prophylactic antibiotics administered by anesthesia. Once [...] fluoroscopy. Standard AO technique to screws headless [place] 28 measuring 16 mm in diameter 3-0 [...] RN - 11/25/2024 6:46 AM EST Darnell [id number] documented in this encounter Plan of Treatment Upcoming Encounters Date Type Department Care Team (Late st Contact Info) Description 02/09/2025 10:00 AM EDT Office Visit Orthopedic Surgery - [place] [address] [phone] Mark Xavier DPM [address] [address] Scheduled Procedures Name Priority Associated Diagnoses Date/Ti me BUNIONECTOMY Acquired hallux valgus of right foot documented as of this encounter Procedures Procedure Name Priority Date/Time Associated Diagnosis Comments XR FOOT 3+ VIEWS RIGHT Routine 11/25/2024 9:00 AM EST SD CORRECTION HALLUX VALGUS WITH DISTAL METATARSAL OSTEOTOMY ANY METHOD 11/25/2024 7:26 AM EST Hallux valgus (acquired), right foot Case Notes MINI C-ARM, [place] 28 3-0 headless documented in this encounter Results * XR Foot 3+ Views Right (11/25/2024 9:00 AM EST) Anatomical Region Laterality Modality Lower Extremities, Foot Right Radiogra [facility] 11/28/2024 10:1 4 AM EST Impressions 11/28/2024 10:15 AM EST Impression: Postop changes in the right foot consistent with bunionectomy. Telerad CHEY ([id number]) -------- FINAL REPORT -------- Dictated By: Flora Nichols Dictated Date: 11/28/2024 10:14 ET Assigned Physician: Flora Nichols Reviewed and Electronically Signed By: Flora Nichols Signed Date: 11/28/2024 10:15 ET Workstation ID: [id number] Transcribed By: Self Edit Transcribed Date: 11/28/2024 [...] right foot consistent with bunionectomy. Telebhavik GUERRIER ([id number]) -------- FINAL REPORT -------- Dictated By: Flora Nichols Dictated Date: 11/28/2024 10:14 ET Assigned Physician: Flora Nichols Reviewed and Electronically Signed By: Flora Nichols Signed Date: 11/28/2024 10:15 ET Workstation ID: [id number] Transcribed By: Self Edit Transcribed Date: 11/28/2024 [...] 11/25/2024 documented in this encounter Care Teams Kosher Butcher Relationship Specialty Start Date End Date Olive Gaxiola MD [facility] [address] [facility] D/B/A: [facility] KARIE Law PCP - General 01/18/24 documented as of this encounter
[2024-12-13 09:29] LABS: Alanine Aminotransferase 32 U/L (0-31); Albumin Level 4.7 g/dL (3.5-5.0); Alkaline Phosphatase 63 U/L (39-117); Anion Gap 14 (12-20); Aspartate Amino Transferase 25 U/L (5-31); Bilirubin Total 0.6 mg/dL (0.0-1.0); Blood Urea Nitrogen 20 mg/dL (9-16); Calcium 10.2 mg/dL (8.4-10.2); Carbon Dioxide 29 mmol/L (22-29); Chloride 104 mmol/L (96-108); Cholesterol 323 mg/dL (<200); Estimated Glomerular Filt Rate > 60; Glucose Fasting 137 mg/dL (60-99); HDL Cholesterol 62 mg/dL (>40); LDL Cholesterol Calculated 237 mg/dL (<100); Potassium 4.6 mmol/L (3.3-5.1); Sodium 142 mmol/L (135-145); Total Protein 8.2 g/dL (6.5-8.0); Triglycerides 124 mg/dL (<150)
[2024-12-13 09:45] LABS: Thyroid Stimulating Hormone 1.94 uIU/mL (0.32-4.0); Vitamin D 25-OH Total 60.8 ng/mL (>30)
[2024-12-13 09:47] LABS: Thyroid Stimulating Hormone 2.02 uIU/mL (0.32-4.0)
[2024-12-13 09:57] LABS: Vitamin B12 713 pg/mL (200-900)
[2024-12-16 16:47] LABS: Vitamin A 91 mcg/dL (38-98)
[2024-12-18 08:09] LABS: Vitamin B1 12 nmol/L (8-30)
== END 2024-12-13 08:17 | disposition home or self-care (01) ==
LOC: HO.LAB 08:16
PROVIDERS: Advanced Practice Midwife; PCP Internal Medicine; Visit Provider Internal Medicine
DX: E78.5 Hyperlipidemia, unspecified (principal); R23.2 Flushing; E55.9 Vitamin D deficiency, unspecified; E51.9 Thiamine deficiency, unspecified; E53.8 Deficiency of other specified B group vitamins; E61.2 Magnesium deficiency; E50.9 Vitamin A deficiency, unspecified; E78.00 Pure hypercholesterolemia, unspecified; R14.0 Abdominal distension (gaseous)
CPT/HCPCS: 36415; 80053; 80061; 82306; 82607; 82746; 83735; 84425; 84443; 84590

== ENCOUNTER 2024-12-19 14:25 | Outpatient (AMB) | payer OTHER, SELFPAY ==
--- NOTE | 2024-12-19 14:29 | MHC.PC.OV ---
Vital Signs 12/19/24 14:30 Height 5 ft 4 in Weight 137 lb BMI 23.5 BP 112/72 Blood Pressure Location Lt brachial Position Sitting Intake Visit Reasons: PE Intake Note: Patient here for a physical exam Regional Vice President Surgical Sales Required: No Accompanied by: Self / Same As Patient Allergies No Known Allergies Allergy (Verified 12/19/24 14:44) Medication List - Last Reconciled 12/19/24 by Olive Gaxiola MD ascorbic acid (vitamin C) (Vitamin C) 500 mg PO DAILY cholecalciferol (vitamin D3) (Vitamin D3) 25 mcg PO DAILY magnesium oxide 500 mg PO DAILY [ostioflex buccal] vitamin A 2,400 mcg PO DAILY vitamin Z85-psipe acid 0.5-1 mg 1 tab PO DAILY vitamin E 200 units PO DAILY Tobacco use date assessed: 10/31/24 Dental Screening Dental Screen Date: 10/31/24 HPI HPI Comments History of Present Illness Details This is a 49-year-old female with recent diagnosis of diabetes mellitus type 2 that comes for her physical exam. A1c of 6.7% today and I will start her on metformin. Will be referred to Ophthalmology for diabetic eye exam. LDL not on goal and I will start her on statin because her LDL goal should be less than 70. Mammogram done 2023. Pap smear done 2023. Colonoscopy done 2021 and next colonoscopy should be 2031. She also has low white blood cells and will be referred to Hematology-Oncology. [facility] Medical History (Updated 12/19/24 @ 19:38 by Olive Gaxiola MD) Hot flashes Elevated cholesterol Neck pain Back pain Hypovitaminosis D Sinusitis Surgical History Status post hysteroscopic polypectomy History of bunionectomy Family History Mother Diabetes Father Diabetes Other Mental health disorder Social History Housing: House Alcohol intake: current Alcohol intake frequency: a few times a month Alcohol type: wine and hard liquor Patient Tobacco Use Status: Former Tobacco user Tobacco use type: Cigarette e-Cigarette/Vaping Use: Never Used Second Hand Smoke Exposure: No service: No Current occupational status: employed Current occupational exposures/hazards: No Sexual orientation: Straight/Heterosexual Gender identity: Female Cognitive needs: No Hearing needs: No Vision needs: Yes (glasses) Female Reproductive History Menstrual Age of Menarche: 12 Questionnaire PHQ-9 Over the last 2 weeks, how often have you been bothered by any of the following problems? 1. Little interest or pleasure in doing things: not at all 2. Feeling down, depressed, or hopeless: not at all 3. Trouble falling or staying asleep, or sleeping too much: not at all 4. Feeling tired or having little energy: not at all 5. Poor appetite or overeating: not at all 6. Feeling bad about yourself - or that you are a failure or have let yourself or your family down: not at all 7. Trouble concentrating on things, such as reading the newspaper or watching television: not at all 8. Moving or speaking so slowly that other people could have noticed. Or the opposite - being so fidgety or restless that you have been moving around a lot more than usual: not at all 9. Thoughts that you would be better off or of hurting yourself in some way: not at all Total score: 0 Depression Screening Interpretation: Negative Depression Screening Done: Yes 43338 - PHQ-9 Billing: Yes Source: Developed by Drs. Luke Peters, Maggie Morillo, Jian Fernandez and colleagues, with an educational romeo from [employer]. Thrive Questionnaire Date Thrive assessed: 10/31/24 I am a: Patient What is your living situation today?: I have a steady place to live Within the past 12 months, did the food you bought not last and you didn't have the money to get more?: I choose not to answer this question Within the past 12 months, did you worry whether your food would run out before you got money to buy more?: I choose not to answer this question Do you have trouble paying for medicines?: I choose not to answer this question Do you have trouble getting transportation to medical appointments?: I choose not to answer this question Do you have trouble paying your heating and electricity bill?: I choose not to answer this question Do you have trouble taking care of your child, family member or friend?: I choose not to answer this question Do you have trouble with day-to-day activities such as bathing, preparing meals, shopping, managing finances, etc.?: I choose not to answer this question Are you currently unemployed and looking for a job?: I choose not to answer this question Are you interested in more education?: I choose not to answer this question Please select the resources that you would like help with: None Currently or been in a relationship where the following occur: I choose not to answer THRIVE Score: 0 AUDIT C Alcohol Use Questionnaire (AUDIT-C) 1. How often do you have a drink containing alcohol?: 2-4 times a month 2. How many drinks containing alcohol do you have on a typical day when you are drinking?: 3 or 4 3. How often do you have six or more drinks on one occasion?: Never Total Score: 3 MARY-7 AMB Questionnaire MARY-7 Date MARY - 7 assessed: 10/31/24 Feeling nervous, anxious, or on edge: 0 = Not at all Not being able to stop or control worryin = Not at all Worrying too much about different things: 0 = Not at all Trouble relaxin = Not at all Being so restless that it is hard to sit still: 0 = Not at all Becoming easily annoyed or irritable: 0 = Not at all Feeling afraid as if something awful might happen: 0 = Not at all Total MARY-7 score (0-4 normal; 5-9 mild; 10-14 moderate; 15-21 severe): 0 Source: Developed by Drs. Luke Peters, Maggie Morillo, Jian Fernandez and colleagues, with an educational romeo from [employer]. MARY-7 Assessment Billing MARY-7 Assessment Tool: MARY-7 Assessment 41109 Review of Systems Const All systems reviewed & are unremarkable except as noted in HPI and below Card Denies chest pain at rest, Denies chest pain with activity, Denies edema, Denies irregular heart rhythm, Denies claudication, Denies dyspnea, Denies dyspnea on exertion, Denies orthopnea, Denies paroxysmal nocturnal dyspnea and Denies slow heart rate Resp Denies cough, Denies dyspnea and Denies dyspnea on exertion Physical exam (Primary Care) Vital Signs: Last Vital Signs BP 112/72 12/19/24 14:30 BMI result Body Mass Index 23.5 Tobacco/Smoking Status: Tobacco use Status Tobacco use date assessed 10/31/24 12/19/24 14:35 Patient Tobacco Use Status Former Tobacco user 12/19/24 14:35 Tobacco use type Cigarette 12/19/24 14:35 e-Cigarette/Vaping Use Never Used 12/19/24 14:35 PHQ-9: PHQ-9 Score PHQ-9: Total score 0 12/19/24 16:03 Depression Screening Interpretation: Negative Thrive Assessment: Date of Thrive Assessment Date Thrive assessed 10/31/24 12/19/24 14:35 Currently or been in a relationship where the following occur: I choose not to answer [facility] Head: Yes normal to inspection, Yes normocephalic and Yes atraumatic Ears: external ears normal Eyes General: appearance normal, both eyes and all related structures Eyelids: Yes eyelids normal Conjunctivae: conjunctivae normal Neck Neck: Yes normal visual inspection and Yes supple Resp Effort & Inspection: normal respiratory effort Auscultation: clear to auscultation bilaterally Cardio Jugular venous distension: no JVD Rate: regular rate Rhythm: regular rhythm Heart sounds: S1 normal heart sound present and S2 normal heart sound present GI Inspection: Yes normal to inspection Palpation (GI): Soft to palpation and nontender Auscultation: normal bowel sounds Skin General skin exam: no rashes or lesions noted Neuro General: no focal motor deficits Extrem General: Yes full ROM Psych Appearance: grossly normal Office Procedures Flu Questionnaire Does the patient have a severe egg allergy?: No Results AMB Hemoglobin A1c AMB Hemoglobin A1c 6.7 % Last Edit by FRANCISCO Sesay on 12/19/24 16:04 Immunizations Fluarix Triv [id number] (PF) 45 mcg (15 mcg x 3)/0.5 mL IM syringe Performing Provider: Olive Gaxiola MD [facility] Documented (not given) by: FRANCISCO Sesay on 12/19/24 16:03 Reason Not Given: Patient Refused Results Reviewed Results Reviewed: Laboratory Last Values Hgb A1c (Clinic) 6.7 % (4.0-6.0) H 12/19/24 14:45 Coding Level of Care Code Est Pt Level 3 (30518) Est Pt Prev Care 40-64y(70559) Diagnoses Physical exam Z00.00 Type 2 diabetes mellitus without complication, without long-term current use of insulin E11.9 Hyperlipidemia LDL goal <70 E78.5 Additional Codes MARY-7 Assessment Billing - MARY-7 Assessment Tool: MARY-7 Assessment 56370 ([id number]) PHQ-9 - 15432 - PHQ-9 Billing: Yes ([id number]) Time Spent (min) 35 Assessment & Plan Assessment & Plan (1) Physical exam: Code(s): Z00.00 - Encounter for general adult medical examination without abnormal findings Category: Medical (2) Type 2 diabetes mellitus without complication, without long-term current use of insulin: Code(s): E11.9 - Type 2 diabetes mellitus without complications Category: Medical (3) Hyperlipidemia LDL goal <70: Code(s): E78.5 - Hyperlipidemia, unspecified Category: Medical Plan Repeat physical exam in a year. Repeat colonoscopy 2031. Repeat mammogram this year. Start metformin for diabetes. Referred to Ophthalmology for diabetic eye exam. A1c goal is equal or less than 7%. Blood pressure goal is equal or less than 130/80. Start statins for hyperlipidemia. LDL goal is less than 70. Referred to Hematology-Oncology for her leukopenia. Orders: Orders AMB Hemoglobin A1c Today R73.02 - Impaired glucose tolerance (oral) Comprehensive [place]. Panel Fast 4 Months E11.9 - Type 2 diabetes mellitus without complications Influenza 7624-8548 Immunization Today Z23 - Encounter for immunization Lipid Panel 4 Months E78.5 - Hyperlipidemia, unspecified Microalbumin, Random (w Creat) 4 Months R80.9 - Proteinuria, unspecified Vitamin D 25-OH Total 4 Months E55.9 - Vitamin D deficiency, unspecified Referrals Ophthalmology Referral E11.9 - Type 2 diabetes mellitus without complications Hematology & Oncology Referral D72.819 - Decreased white blood cell count, unspecified Medications: New metformin 500 mg PO BID 90 days 180 tabs 2RF E11.9 - Type 2 diabetes mellitus without complications atorvastatin 40 mg PO BEDTIME 90 days 90 tabs 1RF E78.5 - Hyperlipidemia, unspecified blood-glucose meter (FreeStyle Lite Meter kit) As directed 1 ea 0RF E11.9 - Type 2 diabetes mellitus without complications lancets (FreeStyle Lancets) Use 1 lancet once a day 100 ea 3RF E11.9 - Type 2 diabetes mellitus without complications blood sugar diagnostic (FreeStyle Lite Strips) Use 1 test strip once a day 100 ea 3RF E11.9 - Type 2 diabetes mellitus without complications
[2024-12-19 14:30] VITALS: BP 112/72; BMI 23.5
--- OUTSIDE RECORDS SUMMARY | 2024-12-19 16:38 | XMS_ITS | Clinical Summary ---
Author Organization 175 [facility] Address 175 [place] [address] Phone Care Team Providers Care Senior Environmental Scientist Name Role Phone Olive Gaxiola MD Primary Care Provider Allergies No known active allergies Medications ascorbic [...] 10:00 AM EST Office Visit Orthopedic Surgery [facility] [address] [phone] Mark Xavier DPM Post-operative state (Primary Dx); Acquired hallux valgus of right foot 11/25/2024 7:30 AM EST - 11/25/2024 8:[address] [facility] [place] [address] [place] [phone] Mark Xavier DPM BUNIONECTOMY RIGHT [53803 (CPT??)] 11/25/2024 7:25 AM [address] [facility] [place] [address] [place] [phone] Wiley Aguilar MD 11/25/2024 5:43 AM EST - 11/25/2024 9:36 AM EST Hospital Encounter [facility] [place] [address] [place] [phone] Mark Xavier DPM Hallux valgus (acquired), right foot (Primary Dx); Bunion of right foot Discharge Disposition: Home or Self Care 11/23/2024 8:00 AM EST Consult Orthopedic [facility] [address] [phone] Mark Xavier DPM Acquired hallux valgus of right foot (Primary Dx) 11/09/2024 Telephone Orthopedic Surgery [facility] 175 [facility] 140 [place] [phone] Edith Hirsch from Last 3 Months Immunizations [...] AM EDT Office Visit Orthopedic Surgery - [place] [address] [phone] Mark Xavier, DPM [address] [address] Health Maintenance Due Date Last Done Comments Breast Cancer Screening 1975 Hepatitis B Vaccines (1 of 3 - 19+ 3-dose series) 02/27/1992 Cervical Cancer Screening: P ap Smear 1994 Pneumococcal Vaccine: 50+ Years (1 of 1 - PCV) 2023 Zoster Vaccines (1 of 2) 2023 COVID-19 Vaccine (2023-2 5 season) 2024 Influenza Vaccine (#1) 2024 [...] this topic Medical Devices Implanted Type Area Hand Stamper Device Identifier Shelf Expiration Date Model / Serial / Lot Kerry Tuttle Shrtthrd 3.0x16mm [facility] - Sna - [id number] Implanted:Qty: 2 on 11/25/2024 by Mark Xavier DPM at [facility] Internal and External Fixation Right: First Toe [employer] [id number] / NA / NA Procedures Procedure Name Priority Date/Time Associated Diagnosis Comments XR FOOT 3+ VIEWS RIGHT Routine 12/12/2024 10:07 AM EST Post-operative state XR FOOT 3+ VIEWS RIGHT Routine 11/25/2024 9:00 AM EST NH CORRECTION HALLUX VALGUS WITH DISTAL METATARSAL OSTEOTOMY ANY METHOD 11/25/2024 7:26 AM EST Hallux valgus (acquired), right foot Case Notes MINI C-ARM, [place] 28 3-0 headless LIPID PANEL Routine 01/27/2023 [...] Most Recently Relevant to Health Maintenance Insurance [facility] Care Teams Senior Environmental Scientist Relationship Specialty Start Date End Date Olive Gaxiola MD [address] [place] [address] , [address] [facility] Physician Associ D/B/A: [facility] KARIE Law PCP - General 01/18/24
--- OUTSIDE RECORDS SUMMARY | 2024-12-19 16:38 | XMS_ITS | Encounter Summary ---
Author Organization [facility] Address [address] [place] [address] Care Team Providers Care Meat Slicer Name Role Phone Olive Gaxiola MD Primary Care Provider [phone] Reason for Visit * Reason Comments Pre-op Exam Right foot bunionect marco Encounter Details Date Type Department Care Team (Late st Contact Info) Description 11/23/2024 8:00 AM EST Consult Orthopedic Surgery - [place] [address] [phone] Mark Xavier DPM [address] [address] Acquired hallux valgus of right foot (Primary [...] protective sensation intact 10/10 with 5.07 semmes niocle bilaterally, vibratory sensation with tuning fork intact [...] AM EDT Office Visit Orthopedic Surgery - [place] [address] [phone] Mark Xavier DPM [address] [address] documented as of this encounter Visit Diagnoses Diagnosis Acquired hallux valgus of right foot- Primary documented in this encounter Care Teams Meat Slicer Relationship Specialty Start Date End Date Olive Gaxiola MD [address] [place] [address] , [facility] 101 [facility] Physician Associ D/B/A: [facility] [place], [place] PCP - General 01/18/24 documented as of this encounter
--- OUTSIDE RECORDS SUMMARY | 2024-12-19 16:38 | XMS_ITS | Encounter Summary ---
[facility] [address] [place] [address] Care Team Providers Care Distribution Center Supervisor Name Role Phone Olive Gaxiola MD Primary Care Provider [phone] Reason for Visit * Auth/Cert (Routine) Specialty Diagnoses / Procedures Referred By Contheather t Referred To Contact Diagnoses Hallux valgus (acquired), right foot HALLUX VALGUS RIGHT Procedures CO CORRECTION HALLUX VALGUS WITH DISTAL METATARSAL OSTEOTOMY ANY METHOD BUNIONECTOMY RIGHT Mark Xavier DPM [address] [address] Phone: tel: fax: [facility] OR [address] [place] [phone] Phone: tel: Referral ID Status Reason Start Date Expiration Date Visits Re quested Visits Authorized [id number] 1 1 Encounter Details Date Type Department Care Team (Late st Contact Info) Description 11/25/2024 7:30 AM EST - 11/25/2024 8:45 AM EST Surgery [facility] OR [address] [place] [phone] Mark Xavier DPM [address] [address] BUNIONECTOMY RIGHT [[id number] (CPT??)] Surgery Details Date/Time Status Location OR Service Patient Class Case Cl ass Case Type Trauma Case? 11/25/2024 7:30 AM Posted [facility] OR OR [address] [place] [address] Outpatient Surgery F - Elective Panel 1 Procedure LRB Anes Op Region Wound Class Comments BUNIONECTOMY RIGHT Right Monitor Anest hesia Care First Toe Class I/ Clean IV SEDATION Surgeon Surgeon Role Service Panel Mark Xavier, DPM Primary Podiatry 1 Case Notes MINI C-ARM, [place] 28 3-0 headless documented in this encounter [...] sent through Care Everywhere. * Bunionectomy: Post-op ([place] Islander) * Sedation ([place] Island[place]) documented in this encounter Medications at Time [...] RIGHT (R) OPERATIVE NOTE Date: 11/25/2024 Location: [facility] OR Name: Anne Parr, : 1975, Diagnosis Pre-op Diagnosis * Hallux valgus (acquired), right foot [M20.11] Post-op Diagnosis * Hallux valgus (acquired), right foot [M20.11] Procedures BUNIONECTOMY RIGHT 91734 - CO CORRECTION HALLUX VALGUS WITH DISTAL METATARSAL OSTEOTOMY ANY METHOD Additional Procedures Indications: Anne Parr is an 49 y.o. female who is having surgery for HALLUX VALGUS RIGHT. That has failed conservative treatment modalities in clinic for management of the deformity. Surgeon(s) & Enroller(s) * Mark Xavier DPM - Primary Anesthesia: [...] preoperative protocols were completed in concordance with [facility] protocol. Prophylactic antibiotics administered by anesthesia. Once [...] fluoroscopy. Standard AO technique to screws headless [place] 28 measuring 16 mm in diameter 3-0 [...] RN - 11/25/2024 6:46 AM EST Darnell [id number] documented in this encounter Plan of Treatment Upcoming Encounters Date Type Department Care Team (Late st Contact Info) Description 02/09/2025 10:00 AM EDT Office Visit Orthopedic Surgery - [place] [address] [phone] Mark Xavier DPM [address] [address] documented as of this encounter Procedures Procedure Name Priority Date/Time Associated Diagnosis Comments XR FOOT 3+ VIEWS RIGHT Routine 11/25/2024 9:00 AM EST CO CORRECTION HALLUX VALGUS WITH DISTAL METATARSAL OSTEOTOMY ANY METHOD 11/25/2024 7:26 AM EST Hallux valgus (acquired), right foot Case Notes MINI C-ARM, [place] 28 3-0 headless documented in this encounter Results * XR Foot 3+ Views Right (11/25/2024 9:00 AM EST) Anatomical Region Laterality Modality Lower Extremities, Foot Right [facility] 11/28/2024 10:1 4 AM EST Impressions 11/28/2024 10:15 AM EST Impression: Postop changes in the right foot consistent with bunionectomy. Telerad HCEY ([id number]) -------- FINAL REPORT -------- Dictated By: Flora Nichols Dictated Date: 11/28/2024 10:14 ET Assigned Physician: Flora Nichols Reviewed and Electronically Signed By: Flora Nichols Signed Date: 11/28/2024 10:15 ET Workstation ID: [id number] Transcribed By: Self Edit Transcribed Date: 11/28/2024 [...] right foot consistent with bunionectomy. Telerad CHEY ([id number]) -------- FINAL REPORT -------- Dictated By: Flora Nichols Dictated Date: 11/28/2024 10:14 ET Assigned Physician: Flora Nichols Reviewed and Electronically Signed By: Flora Nichols Signed Date: 11/28/2024 10:15 ET Workstation ID: [id number] Transcribed By: Self Edit Transcribed Date: 11/28/2024 [...] 11/25/2024 documented in this encounter Care Teams Distribution Center Supervisor Relationship Specialty Start Date End Date Olive Gaxiola MD [address] [place] [address] , [address] [facility] Physician Associ D/B/A: [facility] KARIE Law PCP - General 01/18/24 documented as of this encounter
--- OUTSIDE RECORDS SUMMARY | 2024-12-19 16:38 | XMS_ITS | Encounter Summary ---
Author Organization [facility] Address [address] [place] [address] Care Team Providers Care Tree Sapper Name Role Phone Olive Gaxiola MD Primary Care Provider Reason for Visit * Reason Comments Post-op Right foot bunionect marco Encounter Details Date Type Department Care Team (Late st Contact Info) Description 12/12/2024 10:00 AM EST Office Visit Orthopedic Surgery - [place] [address] [phone] Mark Xavier, DPM [address] [address] Post-operative state (Primary Dx); Acquired hallux valgus [...] AM EDT Office Visit Orthopedic Surgery - [place] [address] [phone] Mark Xavier DPM [address] [address] documented as of this encounter Results * XR Foot 3+ Views Right (12/12/2024 10:07 AM EST) Anatomical Region Laterality Modality Lower Extremities, Foot Right Computed Radiography Narrative 12/12/2024 12:11 PM EST Right foot ??3 views No fracture. No radiopaque foreign Stable post op changes hardware intact reduction deformity maintained us Mark Xavier DPM IMG XR PROCEDURES Final R esult documented in this encounter Visit Diagnoses Diagnosis Post-operative state- Primary Other postprocedural status Acquired hallux valgus of right foot documented in this encounter Care Teams Tree Sapper Relationship Specialty Start Date End Date Olive Gaxiola MD 2 [facility] , [address] [facility] Physician Associ D/B/A: [facility] KARIE Law PCP - General 01/18/24 documented as of this encounter
--- OUTSIDE RECORDS SUMMARY | 2024-12-19 16:38 | XMS_ITS | Encounter Summary ---
Author Organization [email or web address] Address [address] [place] [address] Care Team Providers Care Candy Forming Machine Operator Name Role Phone Olive Gaxiola MD Primary Care Provider Reason for Visit * Auth/Cert (Routine) Specialty Diagnoses / Procedures Referred By Contac t Referred To Contact Diagnoses Hallux valgus (acquired), right foot HALLUX VALGUS RIGHT Procedures MD CORRECTION HALLUX VALGUS WITH DISTAL METATARSAL OSTEOTOMY ANY METHOD BUNIONECTOMY RIGHT Mark Xavier DPM [address] [address] Phone: tel: fax: [facility] OR [address] [place] [phone] Phone: tel: Referral ID Status Reason Start Date Expiration Date Visits Re quested Visits Authorized [id number] 1 1 Encounter Details Date Type Department Care Team (Late st Contact Info) Description 11/25/2024 5:43 AM EST - 11/25/2024 9:36 AM EST Hospital Encounter [facility] OR [address] [place] [address] Mark Xavier DPM [address] [address] Hallux valgus (acquired), right foot (Primary Dx); [...] sent through Care Everywhere. * Bunionectomy: Post-op (Northern Irish) * Sedation (Northern Irish) documented in this encounter Medications at Time [...] RIGHT (R) OPERATIVE NOTE Date: 11/25/2024 Location: [facility] OR Name: Anne Parr, : 1975, Diagnosis Pre-op Diagnosis * Hallux valgus (acquired), right foot [M20.11] Post-op Diagnosis * Hallux valgus (acquired), right foot [M20.11] Procedures BUNIONECTOMY RIGHT [address] - MD CORRECTION HALLUX VALGUS WITH DISTAL METATARSAL OSTEOTOMY ANY METHOD Additional Procedures Indications: Anne Parr is an 49 y.o. female who is having surgery for HALLUX VALGUS RIGHT. That has failed conservative treatment modalities in clinic for management of the deformity. Surgeon(s) & Telephone Clerk(s) * Mark Xavier DPM - Primary Anesthesia: [...] protocols were completed in concordance with [facility] protocol. Prophylactic antibiotics administered by anesthesia. Once [...] fluoroscopy. Standard AO technique to screws headless [place] 28 measuring 16 mm in diameter 3-0 [...] RN - 11/25/2024 6:46 AM EST Darnell [id number] documented in this encounter Plan of Treatment Upcoming Encounters Date Type Department Care Team (Late st Contact Info) Description 02/09/2025 10:00 AM EDT Office Visit Orthopedic Surgery - [place] [address] [phone] Mark Xavier DPM [address] [address] documented as of this encounter Procedures Procedure Name Priority Date/Time Associated Diagnosis Comments XR FOOT 3+ VIEWS RIGHT Routine 11/25/2024 9:00 AM EST MD CORRECTION HALLUX VALGUS WITH DISTAL METATARSAL OSTEOTOMY ANY METHOD 11/25/2024 7:26 AM EST Hallux valgus (acquired), right foot Case Notes MINI C-ARM, [place] 28 3-0 headless documented in this encounter Results * XR Foot 3+ Views Right (11/25/2024 9:00 AM EST) Anatomical Region Laterality Modality Lower Extremities, Foot Right [facility] 11/28/2024 10:1 4 AM EST Impressions 11/28/2024 10:15 AM EST Impression: Postop changes in the right foot consistent with bunionectomy. Telerad CHEY ([id number]) -------- FINAL REPORT -------- Dictated By: Flora Nichols Dictated Date: 11/28/2024 10:14 ET Assigned Physician: Flora Nichols Reviewed and Electronically Signed By: Flora Nichols Signed Date: 11/28/2024 10:15 ET Workstation ID: [id number] Transcribed By: Self Edit Transcribed Date: 11/28/2024 [...] right foot consistent with bunionectomy. Telerad CHEY ([id number]) -------- FINAL REPORT -------- Dictated By: Flora Nichols Dictated Date: 11/28/2024 10:14 ET Assigned Physician: Flora Nichols Reviewed and Electronically Signed By: Flora Nichols Signed Date: 11/28/2024 10:15 ET Workstation ID: [id number] Transcribed By: Self Edit Transcribed Date: 11/28/2024 [...] 11/25/2024 documented in this encounter Care Teams Candy Forming Machine Operator Relationship Specialty Start Date End Date Olive Gaxiola MD 2 [facility] , [address] [facility] Physician Associ D/B/A: [facility] [place] PCP - General 01/18/24 documented as of this encounter
--- OUTSIDE RECORDS SUMMARY | 2024-12-19 16:38 | XMS_ITS | Patient Health Record ---
Author Organization [facility] Address [address] [place] [address] Care Team Providers Care Tree Deadener Name Role Phone Olive Mensah Primary Care Provider UnavailHever Mata Jr Unavailable [phone] ALLERGIES No Known Allergies REASON FOR [...] directed Orally Active Vitamin A & D 497[address]581 UNIT as directed Orally Active IMMUNIZATIONS Vaccine [...] Problem Colon cancer screening (Z12.11) Active confirmed 037730799 Problem Long-term current use of high risk medication other than anticoagulant (Z79.899) Active confirmed 915047409 Problem Irritable bowel syndrome with both constipation and diarrhea (K58.2) Active confirmed [id number] PLAN OF TREATMENT Future Test Test Name Order Date COLONOSCOPY 03/12/2022 Insurance Providers Payer Name Payer Address Payer Phone Subscriber Number Group Number Insured Name Patient Relationship to Insured Coverage Start Date Coverage End Date [facility] [address] [address] [place], [place] [id number] BEN HAMILTON Self - patient is the insured MEDICAID OF [facility] [address] [place] [address] [id number] BEN HAMILTON Self - patient is the insured MEDICAL (GENERAL) HISTORY Medical History History ICD Code diabetes Gastroesophageal reflux disease Back pain Elevated cholesterol Decreased vitamin D level Surgical History Surgery Date(Month/Year) 19 years ago bunion Uterine polyps Skin cyst
--- OUTSIDE RECORDS SUMMARY | 2024-12-19 16:38 | XMS_ITS | Encounter Summary ---
Author Organization [facility] Address [address] [place] [address] Care Team Providers Care Concrete Mixing Plant Superintendent Name Role Phone Olive Gaxiola MD Primary Care Provider [phone] Reason for Visit * Auth/Cert (Routine) Specialty Diagnoses / Procedures Referred By Contac t Referred To Contact Diagnoses Hallux valgus (acquired), right foot HALLUX VALGUS RIGHT Procedures IN CORRECTION HALLUX VALGUS WITH DISTAL METATARSAL OSTEOTOMY ANY METHOD BUNIONECTOMY RIGHT Mark Xavier, DPM 175 [facility] [address] [place] [address] Phone: tel: fax: [facility] OR [address] [place] [address] Phone: tel: Referral ID Status Reason Start Date Expiration Date Visits Re quested Visits Authorized [id number] 1 1 Encounter Details Date Type Department Care Team (Late st Contact Info) Description 11/25/2024 7:25 AM EST Anesthesia Event [facility] OR [address] [place] [address] Wiley Aguilar MD [address] [place] [address] Anesthesia Record Procedure Summary Procedure Name Responsible [...] transport to designated recovery area. {Transport to PACU/ICU:[id number]} 0831 Out of Room 0833 Handoff to [...] AM EDT Office Visit Orthopedic Surgery - [place] [address] [phone] Mark Xavier, DPArgenis [address] [address] documented as of this encounter Visit Diagnoses [...] mg documented in this encounter Care Teams Concrete Mixing Plant Superintendent Relationship Specialty Start Date End Date Olive Gaxiola MD [address] [place] [address] , [address] Physician Associ D/B/A: [facility] KARIE Law PCP - General 01/18/24 documented as of this encounter
== END 2024-12-19 15:07 | disposition home or self-care (01) ==
PROVIDERS: PCP Internal Medicine; Visit Provider Internal Medicine
DX: Z00.00 Encounter for general adult medical examination without abnormal findings (principal); E11.69 Type 2 diabetes mellitus with other specified complication; E78.5 Hyperlipidemia, unspecified

== ENCOUNTER → 2024-12-19 14:25 | Outpatient (BNVA) | payer OTHER, SELFPAY | PROVIDERS: PCP Internal Medicine; Visit Provider Internal Medicine | DX: Z00.00 Encounter for general adult medical examination without abnormal findings (principal); E11.9 Type 2 diabetes mellitus without complications; E78.5 Hyperlipidemia, unspecified | CPT/HCPCS: 83036; 96127; 99212; 99396 ==

== ENCOUNTER 2025-02-15 09:20 | Outpatient (AMB) | payer OTHER, SELFPAY ==
--- NOTE | 2025-02-15 09:22 | MHC.PC.OV ---
Vital Signs 02/15/25 09:23 Height 5 ft 4 in Weight 136 lb 6 oz BMI 23.4 BP 120/70 Blood Pressure Location Lt brachial Position Sitting Pulse 64 Pulse Source Pulse Oximeter Temp 97.1 F Temp Source Temporal Artery Scan Pulse Oximetry (%) 98 Oxygen Delivery Method Room Air Intake Visit Reasons: sore throat Intake Note: Patient is here to follow up on Sore throat with nasal pressure, and back of ear pain since 02/10/25. Student Advisor Required: No Talent Management Manager: Not Required per policy Accompanied by: Self / Same As Patient Allergies No Known Allergies Allergy (Verified 02/15/25 09:23) Medication List - Last Reconciled 02/15/25 by Dee Gates PA-C ascorbic acid (vitamin C) (Vitamin C) 500 mg PO DAILY atorvastatin 40 mg PO BEDTIME 90 days blood sugar diagnostic (FreeStyle Lite Strips) Use 1 test strip once a day blood-glucose meter (FreeStyle Lite Meter kit) As directed cholecalciferol (vitamin D3) (Vitamin D3) 25 mcg PO DAILY fluticasone propionate 50 mcg/actuation (Flonase Allergy Relief) 1 spray intranasal DAILY 30 days lancets (FreeStyle Lancets) Use 1 lancet once a day magnesium oxide 500 mg PO DAILY metformin 500 mg PO BID 90 days [ostioflex buccal] vitamin A 2,400 mcg PO DAILY vitamin P16-baigd acid 0.5-1 mg 1 tab PO DAILY vitamin E 200 units PO DAILY Tobacco use date assessed: 02/15/25 Dental Screening Dental Screen Date: 10/31/24 HPI sore throat HPI Details 49-year-old female with past medical history of GERD, hypercholesterolemia, diabetes mellitus, leukopenia last seen by Dr. Hirsch 11/2024 coming in for acute problem. Presenting with a sore throat that began last Thursday, with soreness localized to one side of the neck. Additional symptoms include postnasal drip, but no cough, fever, or body aches are reported. Patient experienced diarrhea starting Thursday last week, resolved by the current visit. Distinct unilateral soreness without significant alleviation or worsening influences. [facility] Medical History Hot flashes Elevated cholesterol Neck pain Back pain Hypovitaminosis D Sinusitis Surgical History Status post hysteroscopic polypectomy History of bunionectomy Family History Mother Diabetes Father Diabetes Other Mental health disorder Social History Housing: House Alcohol intake: current Alcohol intake frequency: a few times a month Alcohol type: wine and hard liquor Patient Tobacco Use Status: Former Tobacco user Tobacco use type: Cigarette e-Cigarette/Vaping Use: Never Used Second Hand Smoke Exposure: Yes service: No Current occupational status: employed Current occupational exposures/hazards: No Sexual orientation: Straight/Heterosexual Gender identity: Female Cognitive needs: No Hearing needs: No Vision needs: Yes (glasses) Female Reproductive History Menstrual Age of Menarche: 12 Questionnaire Thrive Questionnaire Date Thrive assessed: 12/19/24 I am a: Patient What is your living situation today?: I have a steady place to live Within the past 12 months, did the food you bought not last and you didn't have the money to get more?: I choose not to answer this question Within the past 12 months, did you worry whether your food would run out before you got money to buy more?: I choose not to answer this question Do you have trouble paying for medicines?: I choose not to answer this question Do you have trouble getting transportation to medical appointments?: I choose not to answer this question Do you have trouble paying your heating and electricity bill?: I choose not to answer this question Do you have trouble taking care of your child, family member or friend?: I choose not to answer this question Do you have trouble with day-to-day activities such as bathing, preparing meals, shopping, managing finances, etc.?: I choose not to answer this question Are you currently unemployed and looking for a job?: I choose not to answer this question Are you interested in more education?: I choose not to answer this question Please select the resources that you would like help with: None Currently or been in a relationship where the following occur: I choose not to answer THRIVE Score: 0 MARY-7 AMB Questionnaire MARY-7 Date MARY - 7 assessed: 10/31/24 Source: Developed by Torsten Barkleyet B.W. Ilia, Jian Fernandez and colleagues, with an educational romeo from [employer]. Review of Systems Const Denies body aches, Denies chills, Denies fever(s), Denies headache(s) and Denies poor appetite Eyes Reports no additional complaints ENT Denies dysphagia, Denies dizziness, Denies headache(s), Reports odynophagia and Reports sore throat Card Denies chest pain and Denies dyspnea Resp Denies cough and Denies dyspnea GI Denies abdominal pain, Denies constipation, Denies dysphagia, Reports diarrhea (last week), Denies nausea, Reports odynophagia and Denies vomiting Reports no additional complaints Musc Reports no additional complaints and Denies abnormal gait Skin/Breast Reports system reviewed and no additional complaints, except as documented Neuro Denies abnormal gait, Denies dizziness and Denies headache(s) Psych Reports no additional complaints Physical exam (Primary Care) Vital Signs: Last Vital Signs Temp 97.1 F 02/15/25 09:23 Pulse 64 02/15/25 09:23 BP 120/70 02/15/25 09:23 Pulse Ox 98 02/15/25 09:23 Oxygen Delivery Method Room Air 02/15/25 09:23 BMI result Body Mass Index 23.4 Tobacco/Smoking Status: Tobacco use Status Tobacco use date assessed 02/15/25 02/15/25 09:27 Patient Tobacco Use Status Former Tobacco user 02/15/25 09:27 Tobacco use type Cigarette 02/15/25 09:27 e-Cigarette/Vaping Use Never Used 02/15/25 09:27 Thrive Assessment: Date of Thrive Assessment Date Thrive assessed 12/19/24 02/15/25 09:27 Currently or been in a relationship where the following occur: I choose not to answer Const General: cooperative, healthy appearing, comfortable and no acute distress Orientation/consciousness: patient oriented x3 HENMT Other: tenderness to posterior cervical lymph nodes without lympadenopathy Head: Yes normocephalic Ears: hearing grossly normal bilaterally General nose exam: Normal external nose present Mouth: Normal oral and palatal mucosa present and oropharynx normal Throat: Yes posterior oropharynx normal, Yes tonsils normal and Yes uvula midline Eyes General: appearance normal, both eyes and all related structures Conjunctivae: conjunctivae normal Neck Neck: Yes full ROM and Yes no lymphadenopathy Resp Effort & Inspection: normal respiratory effort Auscultation: clear to auscultation bilaterally, no crackles, no rales, no rhonchi and no wheezes Cardio Rate: regular rate Rhythm: regular rhythm Skin General skin exam: no rashes or lesions noted Neuro General: patient oriented x3 Gait exam (Neuro): Normal gait present Extrem General: Yes normal to inspection, Yes full ROM and No edema Psych Affect: normal affect Attitude: cooperative Insight: Good insight present (Psych) Judgement: Good judgement present (Psych) Results AMB Rapid Strep AMB Rapid Strep Negative Last Edit by FRANCISCO Osborn on 02/15/25 09:44 Coding Level of Care Code Est Pt Level 3 (37234) Diagnoses Sore throat J02.9 Assessment & Plan Assessment & Plan (1) Sore throat: Code(s): J02.9 - Acute pharyngitis, unspecified Category: Medical Plan: The plan includes conducting viral testing for COVID-19, influenza, and RSV, addressing the likelihood of a viral sore throat or allergy-driven symptoms if results are negative. Continuing anti-allergy measures with Flonase, Zyrtec, and Benadryl is advised, along with monitoring symptoms. A follow-up throat culture will assess for other streptococcal infections, given negative initial results. The patient will handle nasal symptoms through additional home remedies and reports to the lab for timely viral test results. Likely symptoms are allergic or viral. Plan This note was constructed using voice recognition software. While every effort has been made to ensure accuracy and employment counselor, still areas may have been included sometimes these areas may affect the content or meeting of the given symptoms. Total time spent caring for the patient today was 20 minutes. This includes time spent before the visit reviewing the chart, time spent during the visit, and time spent after the visit and documentation. Patient was informed and verbally consented to the use of an ambient scribe for clinic note documentation during this visit. Orders: Orders SARS-CoV2/FLU/RSV Today R09.89 - Other specified symptoms and signs involving the circulatory and respiratory systems AMB Rapid Strep Screen Today Z13.9 - Encounter for screening, unspecified Throat Culture Today J02.9 - Acute pharyngitis, unspecified
[2025-02-15 09:23] VITALS: BP 120/70; PULSE 64; TEMP 36.2; O2SAT 98; BMI 23.4
--- OUTSIDE RECORDS SUMMARY | 2025-02-15 10:16 | XMS_ITS | Patient Health Record ---
Author Organization [facility] Address [address] [place] [phone] Care Team Providers Care Computer Installation Engineer Name Role Phone Olive Mensah Primary Care Provider UnavailHever Mata Jr Unavailable Allergies No Known Allergies Reason For Referral No Information Medications Medication SIG (Take, Route, Frequency, Duration) Notes [...] directed Orally Active Vitamin A & D 30828-276 UNIT as directed Orally Active Immunizations Vaccine Route Administration Date Status Comme nts Influenza Unknown 03/12/2022 Refused Social History Tobacco Use: Social History Observation Description Date Details (start date - stop date) Never Smoker NA - NA Tobacco Use/Smoking Question Answer Notes Patient is [...] Never (0 point) Points 4 Interpretation Positive Problems Problem Type SNOMED Code ICD Code Onset Dates Problem Status W/U Status Risk Notes Problem 233918138 Colon cancer screening (Z12.11) Active confirmed Problem 795574156 Long-term curren t use of high risk medication other than anticoagulant (Z79.899) Active confirmed Problem 05145353 Irritable bowel syndrome with both constipation and diarrhea (K58.2) Active confirmed Plan Of Treatment Future Test Test Name Order Date COLONOSCOPY 03/12/2022 Insurance Providers Payer Name Payer Address Payer Phone Subscriber Number Group Number Insured Name Patient Relationship to Insured Coverage Start Date Coverage End Date [facility] [address] [address] [place], [place] [phone] [id number] BEN HAMILTON Self - patient is the insured MEDICAID OF [facility] [address] [place] [address] [id number] BEN HAMILTON Self - patient is the insured Medical (General) History Medical History History ICD Code diabetes Gastroesophageal reflux disease Back pain Elevated cholesterol Decreased vitamin D level Surgical History Surgery Date(Month/Year) 19 years ago bunion Uterine polyps Skin cyst
--- OUTSIDE RECORDS SUMMARY | 2025-02-15 10:16 | XMS_ITS | Clinical Summary ---
Author Organization [facility] Address [address] [place] [address] Phone Care Team Providers Care Bill Board Poster Name Role Phone Olive Gaxiola MD Primary Care Provider [phone] Allergies No known active allergies Medications ascorbic [...] each day at the same time. Active oxyCODONE (ROXICODONE) 5 mg immediate release tabletIndicatio ns:Hallux valgus (acquired), right foot,Bunion of right foot Take 1 tablet (5 mg total) by mouth every 4 (four) hours if needed for severe pain. Max Daily Amount: 30 mg 35 tablet 11/25/2024 Active Active Problems Problem Noted Date Diagnosed Date Acquired hallux valgus of right foot 11/23/2024 Hallux valgus (acquired), right foot 09/08/2024 Bunion of right foot 07/06/2024 Encounters Date Type Department Care Team Description 02/09/2025 10:00 AM EDT Office Visit Orthopedic Surgery [facility] [address] [phone] Mark Xavier DPM Post-operative state (Primary Dx) 12/12/2024 10:00 AM EST Office Visit Orthopedic Surgery [facility] [address] [phone] Mark Xavier DPM Post-operative state (Primary Dx); Acquired hallux valgus of right foot 11/25/2024 7:30 AM EST - 11/25/2024 8:45 AM EST Surgery [facility] OR [address] [place] [address] Mark Xavier DPM BUNIONECTOMY RIGHT [[id number] (CPT??)] 11/25/2024 7:25 AM EST Anesthesia Event [facility] [place] [address] [place] [phone] Wiley Aguilar MD 11/25/2024 5:43 AM EST - 11/25/2024 9:36 AM EST Hospital Encounter [facility] [place] [address] [place] [phone] Mark Xavier DPM Hallux valgus (acquired), right foot (Primary Dx); Bunion of right foot Discharge Disposition: Home or Self Care 11/23/2024 8:00 AM EST Consult Orthopedic [place] [address] [phone] Mark Xavier DPM Acquired hallux valgus of right foot (Primary Dx) from Last 3 Months Immunizations Name Administration [...] Care Team (Late st Contact Info) Description 04/11/2025 10:00 AM EDT Office Visit Orthopedic Surgery - [place] [address] [phone] Mark Xavier, DPM [address] [address] Health Maintenance Due Date Last Done Comments Breast Cancer Screening 1973 Hepatitis B Vaccines (1 of 3 - 19+ 3-dose series) 02/27/1992 Cervical Cancer Screening: P ap Smear 1994 Pneumococcal Vaccine: 50+ Years (1 of 1 - PCV) 2023 Zoster Vaccines (1 of 2) 2023 COVID-19 Vaccine (2023-2 5 season) 2024 Colorectal Cancer Screening: Colonoscopy 08/04/2024 Depression Screening 08/04/2024 HIV Screening 08/04/2024 Hepatitis C Screening 08/04/2024 Social Influencers of Health Screening 08/04/2024 Influenza Vaccine (Season Ended) 2025 Cholesterol Screening (Lipid Panel) 01/28/2028 01/27/2023, 02/02/2004 [...] age to complete this topic Meningococcal B Vaccine Aged Out No l onger eligible based on patient's age to complete [...] this topic Medical Devices Implanted Type Area Director Of Investigations Device Identifier Shelf Expiration Date Model / Serial / Lot Kerry Rayd 3.0x16mm [facility] - [id number] Implanted:Qty: 2 on 11/25/2024 by Mark Xavier DPM at [facility] Internal and External Fixation Right: First Toe [employer] [id number] / NA / NA Procedures Procedure Name Priority Date/Time Associated Diagnosis Comments XR FOOT 3+ VIEWS RIGHT Routine 02/09/2025 10:00 AM EDT Post-operative state XR FOOT 3+ VIEWS RIGHT Routine 12/12/2024 10:07 AM EST Post-operative state XR FOOT 3+ VIEWS RIGHT Routine 11/25/2024 9:00 AM EST AK CORRECTION HALLUX VALGUS WITH DISTAL METATARSAL OSTEOTOMY ANY METHOD 11/25/2024 7:26 AM EST Hallux valgus (acquired), right foot Case Notes MINI C-ARM, [place] 28 3-0 headless LIPID PANEL Routine 01/27/2023 from Last 3 Months or Most Recently Relevant to Health Maintenance Results * XR Foot 3+ Views Right (02/09/2025 10:00 AM EDT) Only the most recent of3 resultswithin the time period is included. Anatomical Region Laterality Modality Lower Extremities, Foot Right Computed Radiography Narrative 02/09/2025 12:16 PM EDT Right foot 3 views Consolidation noted of bunionectomy site hardware intact out signs of failure or complication reduction deformity maintained Mark Xavier DPArgenis IMG XR PROCEDURES Final R esult * Lipid panel (01/27/2023) LDL Cholesterol 129 mg/dL Blood Venous blood specimen / Unknown Historical Provider LAB BLOOD ORDERABLES Anabel l Result from Last 3 Months or Most Recently Relevant to Health Maintenance Insurance [facility] Care Teams Bill Board Poster Relationship Specialty Start Date End Date Olive Gaxiola MD [address] [place] [address] , [address] [facility] D/B/A: [facility] [place], [place] PCP - General 01/18/24
== END 2025-02-15 10:14 | disposition home or self-care (01) ==
LOC: HO.HMCH 09:20
PROVIDERS: PCP Internal Medicine
DX: Z13.9 Encounter for screening, unspecified (principal); J02.9 Acute pharyngitis, unspecified

== ENCOUNTER 2025-02-15 09:20 | Outpatient (REF) | payer OTHER, SELFPAY ==
[2025-02-15 11:09] LABS: Influenza A PCR NEGATIVE (Negative); Influenza B PCR NEGATIVE (Negative); Resp Syncy Virus RNA Qual PCR NEGATIVE (Negative); SARS COV2 PCR INHOUSE NEGATIVE (Negative)
--- OUTSIDE RECORDS SUMMARY | 2025-02-15 11:29 | XMS_ITS | Clinical Summary ---
Author Organization 175 [facility] Address [address] [place] [address] Phone Care Team Providers Care Analysis Or Research Safety Inspector Name Role Phone Olive Gaxiola MD Primary Care Provider [phone] Allergies No known active allergies Medications ascorbic [...] 10:00 AM EDT Office Visit Orthopedic Surgery [facility] [address] [phone] Mark Xavier DPM Post-operative state (Primary Dx) 12/12/2024 10:00 AM EST Office Visit Orthopedic Surgery [facility] [address] [phone] Mark Xavier DPM Post-operative state (Primary Dx); Acquired hallux valgus of right foot 11/25/2024 7:30 AM EST - 11/25/2024 8:45 AM EST Surgery [facility] [place] [address] [place] [address] Mrak Xavier DPM BUNIONECTOMY RIGHT [[id number] (CPT??)] 11/25/2024 7:25 AM EST Anesthesia Event [facility] [place] [address] [place] [phone] Wiley Aguilar MD 11/25/2024 5:43 AM EST - 11/25/2024 9:36 AM EST Hospital Encounter [facility] [place] [address] [place] [phone] Mark Xavier DPM Hallux valgus (acquired), right foot (Primary Dx); Bunion of right foot Discharge Disposition: Home or Self Care 11/23/2024 8:00 AM EST Consult Orthopedic [place] [address] [phone] Mark Xavier DPM Acquired hallux valgus of [...] AM EDT Office Visit Orthopedic Surgery - [place] [address] [phone] Mark Xavier, DPM [address] [phone] Health Maintenance Due Date Last Done Comments [...] this topic Medical Devices Implanted Type Area Coater Associate Device Identifier Shelf Expiration Date Model / Serial / Lot Kerry Rayd 3.0x16mm [facility] - [id number] Implanted:Qty: 2 on 11/25/2024 by Mark Xavier DPM at [facility] Internal and External Fixation Right: First Toe [employer] [id number] / NA / NA Procedures Procedure Name Priority Date/Time Associated Diagnosis Comments XR FOOT 3+ VIEWS RIGHT Routine 02/09/2025 10:00 AM EDT Post-operative state XR FOOT 3+ VIEWS RIGHT Routine 12/12/2024 10:07 AM EST Post-operative state XR FOOT 3+ VIEWS RIGHT Routine 11/25/2024 9:00 AM EST AR CORRECTION HALLUX VALGUS WITH DISTAL METATARSAL OSTEOTOMY ANY METHOD 11/25/2024 7:26 AM EST Hallux valgus (acquired), right foot Case Notes MINI C-ARM, [place] 28 3-0 headless LIPID PANEL Routine 01/27/2023 [...] Most Recently Relevant to Health Maintenance Insurance [facility] [place] [address] Care Teams Analysis Or Research Safety Inspector Relationship Specialty Start Date End Date Olive Gaxiola MD [address] [place] [address] , [address] [facility] D/B/A: [facility] [place], [place] PCP - General 01/18/24
== END 2025-02-15 09:21 | disposition home or self-care (01) ==
LOC: HO.LAB 09:20
PROVIDERS: PCP Internal Medicine
DX: J02.9 Acute pharyngitis, unspecified (principal); R09.89 Other specified symptoms and signs involving the circulatory and respiratory systems
CPT/HCPCS: 0241U; 87880; 99212

== ENCOUNTER 2025-03-22 09:02 | Outpatient (AMB) | payer OTHER, SELFPAY ==
--- NOTE | 2025-03-22 09:05 | MHC.OFFVIS ---
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 She is doing well with process engineering technician concerns: Having hot flashes, interested in treatment options. LMP >12 months. Currently sexually active. Denies any vaginal dryness or irritation. STI testing offered; she declined. Attempting to eat a healthy diet with calcium and vitamin D and stays active with exercise. Last pap smear; 2023, negative. Last mammogram; 2023. Colonoscopy is UTD. Denies any family history of breast, ovarian or colon cancer. [facility] Medical History (Updated 03/22/25 @ 09:34 by Raquel Lobo CNM) Encounter for well woman exam with routine gynecological exam Hot flashes Elevated cholesterol Neck pain Back pain Hypovitaminosis D Sinusitis Surgical History Status post hysteroscopic polypectomy History of bunionectomy Family History Mother Diabetes Father Diabetes Other Mental health disorder Social History Housing: House Alcohol intake: current Alcohol intake frequency: a few times a month Alcohol type: wine and hard liquor Patient Tobacco Use Status: Former Tobacco user Tobacco use type: Cigarette e-Cigarette/Vaping Use: Never Used Second Hand Smoke Exposure: Yes service: No Current occupational status: employed Current occupational exposures/hazards: No Sexual orientation: Straight/Heterosexual Gender identity: Female Cognitive needs: No Hearing needs: No Vision needs: Yes (glasses) Female Reproductive History Menstrual Age of Menarche: 12 Total pregnancies: 1 Full term: 1 Number of Living Children: 1 Date of last pap smear: 03/17/24 (neg pap and hpv) Date of Mammogram: 04/13/24 (Birad 1) Review of Systems Const All systems reviewed & are unremarkable except as noted in HPI and below Reports as per HPI Eyes Reports no additional complaints ENT Reports no additional complaints Card Reports no additional complaints Resp Reports no additional complaints GI Reports as per HPI and Reports no additional complaints Reports as per HPI Musc Reports no additional complaints Skin/Breast Reports as per HPI Neuro Reports no additional complaints Psych Reports no additional complaints Endo Reports no additional complaints Yonas/Lymph Reports no additional complaints Aller/Immun Reports no additional complaints Physical Exam Vital Signs: Last Vital Signs BP 104/66 03/22/25 09:06 BMI result Body Mass Index 23.3 Const General: cooperative, healthy appearing, no acute distress, well developed and alert Orientation/consciousness: patient oriented x3 HEENT Head: Yes normal to inspection Eyes General: appearance normal, both eyes and all related structures Neck Neck: Yes normal visual inspection Thyroid: Thyroid normal Chest Chest palpation & inspection: normal inspection of the chest and other (no puckering, dimpling, peau de orange, retraction, discharge, masses) Breast/axilla inspection: normal inspection of the breasts Breast/axilla palpation: normal palpation of the breasts Resp Effort & Inspection: normal respiratory effort GI Inspection: Yes normal to inspection Palpation (GI): Soft to palpation Rectal Exam - Female: deferred General: Yes bladder normal to palpation External Female Exam: normal external appearance and normal appearance of the urethra Speculum Exam - Vagina: normal appearance of the vagina, normal palpation and normal vaginal discharge Speculum Exam - Cervix: normal appearance of the cervix and normal palpation Bimanual exam- vagina & uterus: normal bimanual exam, normal palpation, uterine size normal, bladder normal to palpation, normal palpation and non-tender Bimanual Exam- Adnexa, other: no masses Skin General skin exam: no rashes or lesions noted Rashes: no rashes Neuro General: patient oriented x3 Cognition (Neuro): normal cognition Extrem General: Yes normal to inspection Psych Attitude: cooperative Thought process: Normal thought process present Assessment & Plan Assessment & Plan (1) Hot flashes: Code(s): R23.2 - Flushing Category: Medical Plan: Perimenopause to menopause transitioning, can affect moods, menstrual cycle and other symptoms such as hot flashes. Avoidance of triggers: ?Alcohol and spicy foods Nonhormonal therapies for hot flashes. Perimenopausal changes. ?Self-help measures include: ?Cooling fabric mattress pad, pillow, wear layered clothing, remote control fan, hydrate well. Literature-Menopause.org handout-website information. [place] Menopausal Society (NAMS)website. ?Literature a various sources and authors. Hot flashes occur up to 80% during menopausal transition. ? Multiple options for treatment would include: ?Gabapentin, HRT, or SSRI's. Advised to call back for consult if decides to start medication. (2) Encounter for well woman exam with routine gynecological exam: Code(s): Z01.419 - Encounter for gynecological examination (general) (routine) without abnormal findings Category: Medical Plan Discussed: Current recommendations for pap smears per ASCCP guidelines. Breast awareness, periodic self breast exams and yearly mammogram. Maintain a healthy lifestyle, well balanced diet including Calcium 1,200 mg and Vitamin D 600 IU daily, and routine exercise. Use of condoms for STI prevention if indicated. Contact the office with any postmenopausal bleeding. Patient verbalizes understanding and agrees to the plan of care. She was given opportunity to ask questions and all questions were answered to the best of my ability. RTO in 1 year for annual process engineering technician exam. This note is constructed using voice recognition software. While every effort has been made to ensure accuracy, developmental mathematics instructor errors may have been included. Coding Level of Care Code Est Pt Prev Care 40-64y(32141) Diagnoses Hot flashes R23.2 Encounter for well woman exam with routine gynecological exam Z01.419
[2025-03-22 09:06] VITALS: BP 104/66; BMI 23.3
--- OUTSIDE RECORDS SUMMARY | 2025-03-22 09:32 | XMS_ITS | Patient Health Record ---
Author Organization [facility] Address [address] [place] [id number] Care Team Providers Care Executive Staff Assistant Name Role Phone Olive Mensah Primary Care [...] directed Orally Active Vitamin A & D 66416-807 UNIT as directed Orally Active Immunizations Vaccine [...] Problem Status W/U Status Risk Notes Problem [id number] Colon cancer screening (Z12.11) Active confirmed Problem 797983758 Long-term curren t use of high risk medication other than anticoagulant (Z79.899) Active confirmed Problem 79491636 Irritable bowel syndrome with both constipation and diarrhea (K58.2) Active confirmed Plan Of Treatment Future Test Test Name Order Date COLONOSCOPY 03/12/2022 Insurance Providers Payer Name Payer Address Payer Phone Subscriber Number Group Number Insured Name Patient Relationship to Insured Coverage Start Date Coverage End Date [facility] [address] [address] [place], [place] [id number] BNE HAMILTON Self - patient is the insured MEDICAID OF [facility] [address] [place] [address] [id number] BEN HAMILTON Self - patient is the insured Medical (General) History Medical History History ICD Code diabetes Gastroesophageal reflux disease Back pain Elevated cholesterol Decreased vitamin D level Surgical History Surgery Date(Month/Year) 19 years ago bunion Uterine polyps Skin cyst
== END 2025-03-22 09:35 | disposition home or self-care (01) ==
LOC: HO.HWS 09:02
PROVIDERS: PCP Internal Medicine; Visit Provider Advanced Practice Midwife
DX: Z01.419 Encounter for gynecological examination (general) (routine) without abnormal findings (principal); R23.2 Flushing
CPT/HCPCS: 99396; 99459

== ENCOUNTER → 2025-03-22 09:02 | Outpatient (BNVA) | payer OTHER, SELFPAY | PROVIDERS: PCP Internal Medicine; Visit Provider Advanced Practice Midwife | DX: Z01.419 Encounter for gynecological examination (general) (routine) without abnormal findings (principal); R23.2 Flushing | CPT/HCPCS: 99396; 99459 ==

== ENCOUNTER 2025-04-19 09:19 | Outpatient (REF) | payer OTHER, SELFPAY ==
--- OUTSIDE RECORDS SUMMARY | 2025-04-19 10:14 | XMS_ITS | Clinical Summary ---
Author Organization [address] [facility] Address [address] [place] [address] Phone Care Team Providers Care Asbestos Shingle Roofer Name Role Phone Olive Gaxiola MD Primary Care Provider [phone] Allergies No known active allergies Medications ascorbic [...] Encounters Date Type Department Care Team Description 04/11/2025 10:00 AM EDT Office Visit Orthopedic Surgery [facility] [address] [phone] Mark Xavier DPM Disease of skin and subcutaneous tissue (Primary Dx); Follow-up exam; Acquired hallux valgus of right foot 02/09/2025 10:00 AM EDT Office Visit Orthopedic Surgery [facility] [address] [phone] Mark Xavier DPM Post-operative state (Primary Dx) from Last 3 Months Immunizations [...] 50 11/25/2024 9:02 AM EST Temperature 36 C (96.8 F) 11/25/2024 8:35 AM EST Respiratory Rate 12 11/25/2024 8:35 AM EST Oxygen Saturation 100% 11/25/2024 9:02 AM EST Inhaled Oxygen Concentration - - Weight 64.4 kg (141 lb 15.6 oz) 025 11:02 AM EDT Height 162.6 cm (5' 4.02 ) 04/11/2025 1 1:02 AM EDT Body Mass Index 24.36 04/11/2025 11:02 AM EDT Plan of Treatment Upcoming Encounters Date Type Department Care Team (Late st Contact Info) Description 07/12/2025 9:30 AM EDT Office Visit Orthopedic Surgery - [place] 250 [address] [facility] [address] [place] [phone] Mark Xavier, DPM [address] [facility] [address] [place] [address] Health Maintenance Due Date Last Done Comments Breast Cancer Screening 1973 Hepatitis B Vaccines (1 of 3 - 19+ 3-dose series) 02/27/1992 Cervical Cancer Screening: P ap Smear 1994 Pneumococcal Vaccine: 50+ Years (1 of 1 - PCV) 2023 Zoster Vaccines (1 of 2) 2023 COVID-19 Vaccine ( - 2023-2 5 season) 2024 Colorectal Cancer Screening: Colonoscopy [...] this topic Medical Devices Implanted Type Area Well Testing Operator Device Identifier Shelf Expiration Date Model / Serial / Lot Kerry Fiorehrd 3.0x16mm Selin Margo - [id number] Implanted:Qty: 2 on 11/25/2024 by Mark Xavier DPM at [facility] Internal and External Fixation Right: First Toe [employer] [id number] / NA / NA Procedures Procedure Name Priority Date/Time Associated Diagnosis Comments XR FOOT 3+ VIEWS RIGHT Routine 04/11/2025 10:35 AM EDT Follow-up exam XR FOOT 3+ VIEWS RIGHT Routine 02/09/2025 10:00 AM EDT Post-operative state LIPID PANEL Routine 01/27/2023 from Last 3 Months or Most Recently Relevant to Health Maintenance Results * XR Foot 3+ Views Right (04/11/2025 10:35 AM EDT) Only the most recent of2 resultswithin the time period is included. Anatomical Region Laterality Modality Lower Extremities, Foot Right Computed Radiography Narrative 04/11/2025 11:56 AM EDT Right foot 3 views Stable post op changes hardware intact reduction deformity maintained Mark Xavier DPM IMG XR PROCEDURES Final R esult * Lipid panel (01/27/2023) LDL Cholesterol 129 mg/dL Blood Venous blood specimen / Unknown Historical Provider LAB BLOOD ORDERABLES Anabel l Result from Last 3 Months or Most Recently Relevant to Health Maintenance Insurance [facility] Care Teams Asbestos Shingle Roofer Relationship Specialty Start Date End Date Olive Gaxiola MD [address] [facility] , [address] [place] [address] Physician Associ D/B/A: [facility] [place], [place] PCP - General 01/18/24
== END 2025-04-19 09:20 | disposition home or self-care (01) ==
LOC: HO.MAMMO 09:19
PROVIDERS: PCP Internal Medicine; Visit Provider Internal Medicine
DX: Z13.89 Encounter for screening for other disorder (principal)

== ENCOUNTER 2025-04-24 09:26 | Outpatient (REF) | payer OTHER, SELFPAY ==
--- OUTSIDE RECORDS SUMMARY | 2025-04-24 09:45 | XMS_ITS | Patient Health Record ---
Author Organization [facility] Address [address] [place] [phone] Care Team Providers Care Heating Fixture Tender Name Role Phone Olive Mensah Primary Care [...] directed Orally Active Vitamin A & D 43177-473 UNIT as directed Orally Active Immunizations Vaccine [...] Problem Status W/U Status Risk Notes Problem [id number] Colon cancer screening (Z12.11) Active confirmed Problem 604891222 Long-term curren t use of high risk medication other than anticoagulant (Z79.899) Active confirmed Problem 99135740 Irritable bowel syndrome with both constipation and diarrhea (K58.2) Active confirmed Plan Of Treatment Future Test Test Name Order Date COLONOSCOPY 03/12/2022 Insurance Providers Payer Name Payer Address Payer Phone Subscriber Number Group Number Insured Name Patient Relationship to Insured Coverage Start Date Coverage End Date [facility] [address] [address] [place], [place] [id number] BEN HAMILTON Self - patient is the insured MEDICAID OF [facility] [address] [place] [address] [id number] BEN HAMILTON Self - patient is the insured Medical (General) History Medical History History ICD Code diabetes Gastroesophageal reflux disease Back pain Elevated cholesterol Decreased vitamin D level Surgical History Surgery Date(Month/Year) 19 years ago bunion Uterine polyps Skin cyst
[2025-04-24 11:11] LABS: Alanine Aminotransferase 31 U/L (0-31); Albumin Level 4.7 g/dL (3.5-5.0); Alkaline Phosphatase 56 U/L (39-117); Anion Gap 12 (12-20); Aspartate Amino Transferase 30 U/L (5-31); Bilirubin Total 1.2 mg/dL (0.0-1.0); Blood Urea Nitrogen 17 mg/dL (9-16); Calcium 9.4 mg/dL (8.4-10.2); Carbon Dioxide 29 mmol/L (22-29); Chloride 105 mmol/L (96-108); Cholesterol 180 mg/dL (<200); Estimated Glomerular Filt Rate > 60; Glucose Fasting 120 mg/dL (60-99); HDL Cholesterol 67 mg/dL (>40); LDL Cholesterol Calculated 91 mg/dL (<100); Sodium 142 mmol/L (135-145); Total Protein 7.3 g/dL (6.5-8.0); Triglycerides 112 mg/dL (<150)
[2025-04-24 11:30] LABS: Vitamin D 25-OH Total 51.3 ng/mL (>30)
== END 2025-04-24 09:27 | disposition home or self-care (01) ==
LOC: HO.LAB 09:26
PROVIDERS: PCP Internal Medicine; Visit Provider Internal Medicine
DX: E78.5 Hyperlipidemia, unspecified (principal); R80.9 Proteinuria, unspecified; E55.9 Vitamin D deficiency, unspecified; E11.9 Type 2 diabetes mellitus without complications
CPT/HCPCS: 36415; 80053; 80061; 82043; 82306; 82570

== ENCOUNTER 2025-04-26 14:02 | Outpatient (AMB) | payer OTHER, SELFPAY ==
[2025-04-26 14:04] VITALS: BP 110/68; BMI 22.1
--- NOTE | 2025-04-26 14:04 | A.OFFPC_ITS ---
Vital Signs 04/26/25 14:04 Height 5 ft 4 in Weight 129 lb BMI 22.1 BP 110/68 Blood Pressure Location Lt brachial Position Sitting Intake Visit Reasons: 4 months First Sampler Required: No Accompanied by: Self / Same As Patient Allergies No Known Allergies Allergy (Verified 04/26/25 14:31) Medication List - Last Reconciled 04/26/25 by Olive Gaxiola MD ascorbic acid (vitamin C) (Vitamin C) 500 mg PO DAILY atorvastatin 40 mg PO BEDTIME 90 days blood sugar diagnostic (FreeStyle Lite Strips) Use 1 test strip once a day blood-glucose meter (FreeStyle Lite Meter kit) As directed cholecalciferol (vitamin D3) (Vitamin D3) 25 mcg PO DAILY fluticasone propionate 50 mcg/actuation (Flonase Allergy Relief) 1 spray intranasal DAILY 30 days lancets (FreeStyle Lancets) Use 1 lancet once a day magnesium oxide 500 mg PO DAILY metformin 500 mg PO BID 90 days [ostioflex buccal] vitamin A 2,400 mcg PO DAILY vitamin N91-gdawh acid 0.5-1 mg 1 tab PO DAILY vitamin E 200 units PO DAILY Tobacco use date assessed: 02/15/25 Dental Screening Dental Screen Date: 10/31/24 HPI HPI Comments History of Present Illness Details The patient is a 50-year-old female presenting with a follow-up for diabetes mellitus management. Her hemoglobin A1c has improved from 6.7% to 6.3%, indicating better glycemic control. She also has hyperlipidemia, with her LDL cholesterol significantly reduced from 237 mg/dL to 91 mg/dL, attributed to compliance with her statin therapy. The patient has leukopenia, which will be monitored with repeat testing. She is taking vitamin A, vitamin D, magnesium, and vitamin B12 supplements. Complaints of dry eyes have led to a suggestion to hold vitamin A, and a diabetic eye exam was conducted with no signs of diabetic retinopathy. The patient reports occasional joint pain, particularly in the back, and will be tested for Sjogren's syndrome and other autoimmune diseases due to her leukopenia. She complains of bilateral breast mass that has been present for few months. No nipple discharge or retraction. Last mammogram last year was normal. [facility] Medical History (Updated 04/26/25 @ 16:55 by Olive Gaxiola MD) Encounter for well woman exam with routine gynecological exam Hot flashes Elevated cholesterol Neck pain Back pain Hypovitaminosis D Sinusitis Surgical History Status post hysteroscopic polypectomy History of bunionectomy Family History Mother Diabetes Father Diabetes Other Mental health disorder Social History Housing: House Alcohol intake: current Alcohol intake frequency: a few times a month Alcohol type: wine and hard liquor Patient Tobacco Use Status: Former Tobacco user Tobacco use type: Cigarette e-Cigarette/Vaping Use: Never Used Second Hand Smoke Exposure: Yes service: No Current occupational status: employed Current occupational exposures/hazards: No Sexual orientation: Straight/Heterosexual Gender identity: Female Cognitive needs: No Hearing needs: No Vision needs: Yes (glasses) Female Reproductive History Menstrual Age of Menarche: 12 Questionnaire Thrive Questionnaire Date Thrive assessed: 12/19/24 I am a: Patient What is your living situation today?: I have a steady place to live Within the past 12 months, did the food you bought not last and you didn't have the money to get more?: I choose not to answer this question Within the past 12 months, did you worry whether your food would run out before you got money to buy more?: I choose not to answer this question Do you have trouble paying for medicines?: I choose not to answer this question Do you have trouble getting transportation to medical appointments?: I choose not to answer this question Do you have trouble paying your heating and electricity bill?: I choose not to answer this question Do you have trouble taking care of your child, family member or friend?: I choose not to answer this question Do you have trouble with day-to-day activities such as bathing, preparing meals, shopping, managing finances, etc.?: I choose not to answer this question Are you currently unemployed and looking for a job?: I choose not to answer this question Are you interested in more education?: I choose not to answer this question Please select the resources that you would like help with: None Currently or been in a relationship where the following occur: I choose not to answer THRIVE Score: 0 MARY-7 AMB Questionnaire MARY-7 Date MARY - 7 assessed: 10/31/24 Source: Developed by Drs. Luke Peters, Maggie Morillo, Jian Fernandez and colleagues, with an educational romeo from [employer]. Review of Systems Const All systems reviewed & are unremarkable except as noted in HPI and below Card Denies chest pain at rest, Denies chest pain with activity, Denies edema, Denies irregular heart rhythm, Denies claudication, Denies dyspnea, Denies dyspnea on exertion, Denies orthopnea, Denies paroxysmal nocturnal dyspnea and Denies slow heart rate Resp Denies cough, Denies dyspnea and Denies dyspnea on exertion GI Denies abdominal pain, Denies change in bowel habits, Denies excessive flatus, Denies nausea and Denies vomiting Physical exam (Primary Care) Vital Signs: Last Vital Signs BP 110/68 04/26/25 14:04 BMI result Body Mass Index 22.1 Tobacco/Smoking Status: Tobacco use Status Tobacco use date assessed 02/15/25 04/26/25 14:10 Patient Tobacco Use Status Former Tobacco user 04/26/25 14:10 Tobacco use type Cigarette 04/26/25 14:10 e-Cigarette/Vaping Use Never Used 04/26/25 14:10 Thrive Assessment: Date of Thrive Assessment Date Thrive assessed 12/19/24 04/26/25 14:10 Currently or been in a relationship where the following occur: I choose not to answer Resp Effort & Inspection: normal respiratory effort Auscultation: clear to auscultation bilaterally Cardio Jugular venous distension: no JVD Rate: regular rate Rhythm: regular rhythm Heart sounds: S1 normal heart sound present and S2 normal heart sound present Extrem General: Yes full ROM Results AMB Hemoglobin A1c AMB Hemoglobin A1c 6.3 % Last Edit by FRANCISCO Sesay on 04/26/25 14:1 7 Results Reviewed Results Reviewed: Laboratory Last Values Hgb A1c (Clinic) 6.3 % (4.0-6.0) H 04/26/25 14:10 Coding Level of Care Code Est Pt Level 4 (97892) Complex EM visit Add On G2211 Diagnoses Hyperlipidemia LDL goal <70 E78.5 Type 2 diabetes mellitus without complication, without long-term current use of insulin E11.9 Hypovitaminosis D E55.9 Dry eyes H04.123 Left breast mass N63.20 Breast mass, right N63.10 Time Spent (min) 24 Assessment & Plan Assessment & Plan (1) Hyperlipidemia LDL goal <70: Code(s): E78.5 - Hyperlipidemia, unspecified Category: Medical (2) Type 2 diabetes mellitus without complication, without long-term current use of insulin: Code(s): E11.9 - Type 2 diabetes mellitus without complications Category: Medical (3) Hypovitaminosis D: Code(s): E55.9 - Vitamin D deficiency, unspecified Category: Medical (4) Dry eyes: Code(s): H04.123 - Dry eye syndrome of bilateral lacrimal glands Category: Medical (5) Left breast mass: Comment: At 3 o'clock Code(s): N63.20 - Unspecified lump in the left breast, unspecified quadrant Category: Medical (6) Breast mass, right: Comment: at 9 o'clock Code(s): N63.10 - Unspecified lump in the right breast, unspecified quadrant Category: Medical Plan The patient's diabetes mellitus management will continue with monitoring of her hemoglobin A1c levels, which have shown improvement. Her hyperlipidemia is well- controlled with statin therapy, and she should maintain compliance with her medication. Leukopenia will be monitored with repeat testing to assess any changes. Due to complaints of dry eyes, the patient is advised to hold vitamin A supplementation, and further testing for Sjogren's syndrome and other autoimmune diseases will be conducted. The patient should continue her current vitamin regimen, excluding vitamin A, and report any new symptoms or changes in her condition. Patient was informed and verbally consented to the use of an ambient scribe for clinic note documentation during this visit. Orders: Orders AMB Hemoglobin A1c Today E11.9 - Type 2 diabetes mellitus without complications Sjogren's Antibodies 4 Months H04.123 - Dry eye syndrome of bilateral lacrimal glands CA stress test Today R07.9 - Chest pain, unspecified Comprehensive [place]. Panel Fast 4 Months E11.9 - Type 2 diabetes mellitus without complications Vitamin B12 and Folate 4 Months E53.8 - Deficiency of other specified B group vitamins Complete Blood Count Auto Diff 4 Months D72.819 - Decreased white blood cell count, unspecified Erythrocyte Sedimentation Rate 4 Months D72.819 - Decreased white blood cell count, unspecified OLIVE Reflex Titer and Pattern 4 Months D72.819 - Decreased white blood cell count, unspecified Vitamin A 4 Months E50.9 - Vitamin A deficiency, unspecified Vitamin B1 4 Months E51.9 - Thiamine deficiency, unspecified Magnesium 4 Months E61.2 - Magnesium deficiency MM diagnostic mammo BI Today N63.10 - Unspecified lump in the right breast, unspecified quadrant, N63.20 - Unspecified lump in the left breast, unspecified quadrant US breast RT limited Today N63.10 - Unspecified lump in the right breast, unspecified quadrant Lipid Panel 4 Months E78.5 - Hyperlipidemia, unspecified Microalbumin, Random (w Creat) 4 Months R80.9 - Proteinuria, unspecified Vitamin D 25-OH Total 4 Months E55.9 - Vitamin D deficiency, unspecified C Reactive Protein 4 Months D72.819 - Decreased white blood cell count, unspecified Rheumatoid Factor 4 Months D72.819 - Decreased white blood cell count, unspecified Alpha-1 Antitrypsin Phenotype 4 Months D72.819 - Decreased white blood cell count, unspecified Cyclic Citrullinated Peptide 4 Months D72.819 - Decreased white blood cell count, unspecified US breast LT limited Today N63.20 - Unspecified lump in the left breast, u nspecified quadrant Referrals Cardiology Referral R07.9 - Chest pain, unspecified
--- OUTSIDE RECORDS SUMMARY | 2025-04-26 14:38 | XMS_ITS | Clinical Summary ---
Author Organization 175 [facility] Address [address] [place] [address] Phone Care Team Providers Care Toolroom Checker Name Role Phone Olive Gaxiola MD Primary Care Provider [phone] Allergies No known active allergies Medications ascorbic [...] 10:00 AM EDT Office Visit Orthopedic Surgery [facility] [address] [phone] Mark Xavier DPM Disease of skin and subcutaneous tissue (Primary Dx); Follow-up exam; Acquired hallux valgus of right foot 02/09/2025 10:00 AM EDT Office Visit Orthopedic Surgery [facility] [address] [phone] Mark Xavier DPM Post-operative state (Primary Dx) [...] AM EDT Office Visit Orthopedic Surgery - [place] [address] [facility] [address] [place] [phone] Mark Xavier, DPM [address] [facility] [address] [place] [address] Health Maintenance Due Date Last Done Comments [...] this topic Medical Devices Implanted Type Area Form Maker Plaster Device Identifier Shelf Expiration Date Model / Serial / Lot Kerry Fiorehrd 3.0x16mm Selin Margo - [id number] Implanted:Qty: 2 on 11/25/2024 by Mark Xavier DPM at [facility] Internal and External Fixation Right: First Toe [employer] [id number] / NA / NA Procedures Procedure [...] Most Recently Relevant to Health Maintenance Insurance [facility] [address] Care Teams Toolroom Checker Relationship Specialty Start Date End Date Olive Gaxiola MD 2 [facility] , [address] [place] [address] Physician Associ D/B/A: [facility] [place], [place] PCP - General 01/18/24
== END 2025-04-26 14:51 | disposition home or self-care (01) ==
LOC: HO.HMCH 14:03
PROVIDERS: PCP Internal Medicine; Visit Provider Internal Medicine
DX: E78.5 Hyperlipidemia, unspecified (principal); E11.9 Type 2 diabetes mellitus without complications; E55.9 Vitamin D deficiency, unspecified; H04.123 Dry eye syndrome of bilateral lacrimal glands; N63.20 Unspecified lump in the left breast, unspecified quadrant; N63.10 Unspecified lump in the right breast, unspecified quadrant

== ENCOUNTER → 2025-04-26 14:02 | Outpatient (BNVA) | payer OTHER, SELFPAY | PROVIDERS: PCP Internal Medicine; Visit Provider Internal Medicine | DX: E11.9 Type 2 diabetes mellitus without complications (principal); E78.5 Hyperlipidemia, unspecified; E55.9 Vitamin D deficiency, unspecified; H04.123 Dry eye syndrome of bilateral lacrimal glands; N63.20 Unspecified lump in the left breast, unspecified quadrant; N63.10 Unspecified lump in the right breast, unspecified quadrant; R07.9 Chest pain, unspecified | CPT/HCPCS: 83036; 99212 ==

== ENCOUNTER 2025-07-03 10:47 | Outpatient (REF) | payer OTHER, SELFPAY ==
--- NOTE | ~2025-07-03 | MM_ITS ---
EXAMINATION(S): 1. MM DIAGNOSTIC DIGITAL BREAST TOMOSYNTHESIS, BILATERAL 2. Targeted ultrasound of the right breast 3. Targeted ultrasound of the left breast CLINICAL INFORMATION: -According to requisition: Bilateral breast lump at 3:00 -According to the patient: right breast lump and pain in the upper outer quadrant and left breast pain in the upper outer quadrant (no left palpable lump today). COMPARISON: Comparison made to multiple prior, most recent April 13, 2024, and most remote November 10, 2017. TECHNIQUE: Digital breast tomosynthesis is performed in both the mediolateral oblique and craniocaudal views along with computer-aided detection (CAD). Synthesized 2D images are generated from the tomosynthesis. Triangular and BB skin markers were placed at the location of the pain and palpable concern respectively. FINDINGS: BREAST COMPOSITION: The breasts are heterogeneously dense, which may obscure small masses (ACR BI-RADS breast composition Category c). RIGHT BREAST: Chronic mass in the upper outer quadrant measuring 1.7 cm at about 11-12 cm from the nipple (MLO 28/74, CC 24/45) is identified subjacent to the triangular and BB markers; this is mildly smaller than in 2018 mammogram. No significant masses, suspicious calcifications or other abnormalities are seen. Targeted ultrasound of the right breast was performed at the following locations: -At the location of the pain as indicated by the patient. The survey performed throughout the upper outer quadrant did not reveal suspicious sonographic findings. -At the location of the palpable concern per patient. The survey shows a 1.7 x 0.5 x 1.6 cm heterogeneous hypoechoic and hyperechoic solid mass at 10 o'clock position 14 cm from the nipple. No internal vascularity demonstrated with color Doppler evaluation. This correlates with the same finding described on November 08, 2019, when measured 2.0 x 1.3 x 0.6 cm at 10 o'clock position at 10 cm from the nipple and on November 10, 2017, when measured 2.4 x 0.6 x 1.9 cm. -At the location of the palpable concern per requisition along the 3:00 axis. Survey did not reveal suspicious sonographic findings. LEFT BREAST: No significant masses, suspicious calcifications or other abnormalities are seen. In particular, no mammographic abnormality adjacent to the triangular skin marker. Targeted ultrasound of the left breast was performed at the following locations: -At the location of the pain as indicated by the patient. The survey was performed throughout the upper outer quadrant, and specifically centered at 2 o'clock position 4 cm from the nipple. No suspicious sonographic findings seen. -At the location of the palpable concern per requisition along the 3:00 axis. Survey did not reveal suspicious sonographic findings. MM/MM tomosynthesis diagnostic BI IMPRESSION: RIGHT BREAST: Patient's palpable concern correlates with the chronic solid mass at 10 o'clock position measuring 1.7 cm, smaller than 2018. No suspicious abnormalities at the location of the pain. Benign, no evidence of malignancy. Clinical follow-up is recommended. Otherwise, normal interval follow-up mammogram is recommended in 12 months. LEFT BREAST: Negative, no evidence of malignancy. Clinical follow-up is recommended. Otherwise, normal interval follow-up mammogram is recommended in 12 months. ASSESSMENT: BI-RADS 2 - Benign Findings RECOMMENDATION: 1. Patient should be managed based on the clinical impression. 2. Otherwise, routine annual screening mammography. Results were provided to the patient at time of visit by the technologist. This patient's information was entered into a reminder system with a target due date for their next mammogram. Electronically signed by: Zev Hammer MD 07/03/2025 05:15 PM EDT
--- OUTSIDE RECORDS SUMMARY | 2025-07-03 13:08 | XMS_ITS | Patient Health Record ---
Author Organization [facility] Address [address] [place] [address] Care Team Providers Care Maintenance Of Way Clerk Name Role Phone Olive Mensah Primary Care Provider UnavailHever Mata Jr Unavailable [phone] Allergies No Known Allergies Reason For Referral [...] directed Orally Active Vitamin A & D 23088-909 UNIT as directed Orally Active Immunizations Vaccine [...] Problem Status W/U Status Risk Notes Problem [id number] Colon cancer screening (Z12.11) Active confirmed Problem 379300459 Long-term curren t use of high risk medication other than anticoagulant (Z79.899) Active confirmed Problem 75580324 Irritable bowel syndrome with both constipation and diarrhea (K58.2) Active confirmed Plan Of Treatment Future Test Test Name Order Date COLONOSCOPY 03/12/2022 Insurance Providers Payer Name Payer Address Payer Phone Subscriber Number Group Number Insured Name Patient Relationship to Insured Coverage Start Date Coverage End Date [facility] [address] [address] [place], [place] [id number] BEN HAMILTON Self - patient is the insured MEDICAID OF [facility] [address] [place] [address] [id number] BEN HAMILTON Self - patient is the insured Medical (General) History Medical History History ICD Code diabetes Gastroesophageal reflux disease Back pain Elevated cholesterol Decreased vitamin D level Surgical History Surgery Date(Month/Year) 19 years ago bunion Uterine polyps Skin cyst
--- OUTSIDE RECORDS SUMMARY | 2025-07-03 13:09 | XMS_ITS | Clinical Summary ---
Author Organization 175 [facility] Address [address] [place] [address] Phone Care Team Providers Care Isotope Hydrologist Name Role Phone Olive Gaxiola MD Primary Care Provider [phone] Allergies No known active allergies Medications ascorbic [...] 10:00 AM EDT Office Visit Orthopedic Surgery [facility] [address] [phone] Mark Xavier DPM Disease of skin and subcutaneous tissue (Primary Dx); Follow-up exam; Acquired hallux valgus of right foot from Last 3 Months Immunizations Name Administration [...] 9:30 AM EDT Office Visit Orthopedic Surgery [facility] [address] [phone] Mark Xavier DPM [address] [phone] Health Maintenance Due Date Last Done Comments Breast Cancer Screening 1973 Hepatitis B Vaccines (1 of 3 - 19+ 3-dose series) 02/27/1992 Cervical Cancer Screening: P ap Smear 1994 Pneumococcal Vaccine: 50+ Years (1 of 1 - PCV) 2023 Zoster Vaccines (1 of 2) 2023 Colorectal Cancer Screening: Colonoscopy 08/04/2024 HIV Screening 08/04/2024 Hepatitis C Screening 08/04/2024 Social Influencers of Health Screening 08/04/2024 Depression Screening 10/26/2024 COVID-19 Vaccine (1 - 2023-2 5 season) 2025 Influenza Vaccine (#1) 2025 Cholesterol Screening (Lipid Panel) 01/28/2028 01/27/2023, [...] this topic Medical Devices Implanted Type Area Rn Shift Mgr Device Identifier Shelf Expiration Date Model / Serial / Lot Kerry Phantthrd 3.0x16mm [facility] - [id number] Implanted:Qty: 2 on 11/25/2024 by Mark Xavier DPM at [facility] Internal and External Fixation Right: First Toe [employer] [id number] / NA / NA Procedures Procedure Name Priority Date/Time Associated Diagnosis Comments XR FOOT 3+ VIEWS RIGHT Routine 04/11/2025 10:35 AM EDT Follow-up exam LIPID PANEL Routine 01/27/2023 from Last 3 Months or Most Recently Relevant to Health Maintenance Results * XR Foot 3+ Views Right (04/11/2025 10:35 AM EDT) Anatomical Region Laterality Modality Lower Extremities, Foot [...] Most Recently Relevant to Health Maintenance Insurance [facility] Care Teams Isotope Hydrologist Relationship Specialty Start Date End Date Olive Gaxiola MD [address] [place] [address] , [address] [facility] Physician Associ D/B/A: [facility] [place], [place] PCP - General 01/18/24
== END 2025-07-03 10:48 | disposition home or self-care (01) ==
LOC: HO.MAMMO 10:47
PROVIDERS: PCP Internal Medicine; Visit Provider Internal Medicine
DX: N63.15 Unspecified lump in the right breast, overlapping quadrants (principal); N63.25 Unspecified lump in the left breast, overlapping quadrants
CPT/HCPCS: 76642; 77062; 77066

== ENCOUNTER → 2025-07-03 11:00 | Outpatient (BNV) | payer OTHER, SELFPAY | PROVIDERS: PCP Internal Medicine; Visit Provider Radiology Body Imaging | DX: N63.15 Unspecified lump in the right breast, overlapping quadrants (principal); N63.25 Unspecified lump in the left breast, overlapping quadrants | CPT/HCPCS: 76642; 77062; 77066 ==